=== PATIENT | female | born 1935 | race Caucasian/White ===

== ENCOUNTER → 2018-06-16 08:06 | Outpatient (CLI) | payer MEDICARE, SELFPAY ==
--- NOTE | 2018-06-16 08:25 | RAD_ITS ---
STUDY: X-RAY - ESOPHAGUS (BARIUM SWALLOW) WITH FLUOROSCOPY REASON FOR EXAM: Female, 83 years old. Excessive vomiting in the past 5 weeks. TECHNIQUE: 15 view(s) of the esophagus were obtained following swallowing of barium. FLUOROSCOPY TIME (if supplied): (0:24) minutes/seconds COMPARISON: None. FINDINGS: There is no demonstrated esophageal foreign body. There is no demonstrated stricture or mucosal abnormality. Normal gastroesophageal junction, without a demonstrated hiatal hernia. The patient ingested a 12 mm tablet of barium without any difficulty. There is atherosclerotic calcification of the aortic arch with tortuosity of the descending aorta. Normal visualized pulmonary parenchyma. There are diffuse degenerative changes of the visualized thoracic spine. RAD/Esophagus Only IMPRESSION: Normal plain film x-ray examination (barium swallow) of the esophagus. Electronically Signed: Rishabh Richardson MD at 15:45 EST Tel [phone], Service support ,
--- OUTSIDE RECORDS SUMMARY | 2018-08-09 08:02 | XMS RPT_ITS ---
:1935 Author Organization [facility] Care Team Providers Name Role Phone QAMAR WALLER, DR. STAUFFER Attending Unavailable JAYCOB ARDON MD Primary Care Unavailable Jaycob Ardon Attending Unavailable UNKNOWN, PROVIDER Referring Unavailable Jaycob Ardon Primary Care Unavailable Jaycob Ardon Attending Unavailable UNKNOWN, PROVIDER Referring Unavailable Jaycob Ardon Primary Care Unavailable Jaycob Ardon Attending Unavailable UNKNOWN, PROVIDER Referring Unavailable Jaycob Ardon Primary Care Unavailable Jaycob Ardon Attending Unavailable UNKNOWN, PROVIDER Referring Unavailable Jaycob Ardon Primary Care Unavailable Jaycob Ardon Attending Unavailable UNKNOWN, PROVIDER Referring Unavailable Jaycob Ardon Primary Care Unavailable Jaycob Ardon Attending Unavailable UNKNOWN, PROVIDER Referring Unavailable Jaycob Ardon Primary Care Unavailable Jaycob Ardon Attending Unavailable UNKNOWN, PROVIDER Referring Unavailable Jaycob Ardon Primary Care Unavailable Meera Gan HEALTH PROGRAM ANALYST-C Attending Unavailable Meera Gan HEALTH PROGRAM ANALYST-C Referring Unavailable Jaycob Ardon Primary Care Unavailable Jaycob Ardon Attending Unavailable Jaycob Ardon Referring Unavailable Jaycob Ardon Primary Care Unavailable PROBLEMS PROBLEMS DATE TYPE CONDITION / CODE ATTENDING STATUS SOURCE 02/24/2018 Admitting Encntr screen Reva Jaycob Active [employer] Diagnosis mammogram for System malignant Repository neoplasm of breast / Z12.31(ICD-10) 02/07/2018 Admitting Unspecified Jaycob Ardon Active #[employer] [facility] Diagnosis abdominal pain / System R10.9(ICD-10) Repository 11/08/2017 Admitting Ataxia, Jaycob Ardon Active [employer] Diagnosis unspecified / System R27.0(ICD-10) Repository PROCEDURES PROCEDURES No Procedure Records FoundRESULTS RESULTS ESOPHAGUS ONLY Observed: 06/16/2018 Status: F Source: [place] [place] 8:13 AM [facility] REPOSITORY [facility] Imaging Services [address] [place] [address] Esophagus Only MR#: [id number] Acct: [id number] Name: SHANTHI WILDER V Rep #: [id number] : 1935 F 83 From: Rishabh Richardson MD PCP: Jaycob Ardon Status: REG CLI Study: Esophagus Only Date of Exam: 06/16/18 Exam# [id number] Ordering Dr: Jaycob Ardon STUDY: X-RAY - ESOPHAGUS (BARIUM SWALLOW) WITH FLUOROSCOPY REASON FOR EXAM: Female, 83 years old. Excessive vomiting in the past 5 weeks. TECHNIQUE: 15 view(s) of the esophagus were obtained following swallowing of barium. FLUOROSCOPY TIME (if supplied): (0:24) minutes/seconds COMPARISON: None. FINDINGS: There is no demonstrated esophageal foreign body. There is no demonstrated stricture or mucosal abnormality. Normal gastroesophageal junction, without a demonstrated hiatal hernia. The patient ingested a 12 mm tablet of barium without any difficulty. There is atherosclerotic calcification of the aortic arch with tortuosity of the descending aorta. Normal visualized pulmonary parenchyma. There are diffuse degenerative changes of the visualized thoracic spine. RAD/Esophagus Only IMPRESSION: Normal plain film x-ray examination (barium swallow) of the esophagus. Electronically Signed: Rishabh Richardson MD at 15:45 EST Tel [phone], Service support , CC: Jaycob Ardon Textile Worker: Signed MG BREAST TOMOSYNTHESIS Observed: 02/24/2018 Status: F Source: [facility] SCR BL 12:00 AM SYSTEM REPOSITORY Patient Name: SHANTHI WILDER V Mammography Exam Date/Time 02/24/2018 15:04:05 EDT Exam MG Breast Tomosynthesis BI Scr Ordering Physician DO ARDON PAUL E. Accession Number [id number] CPT4 Codes 52319 (MG Breast Tomosynthesis Scr Bl), 62221 (MG MAMMO 2D SCREENING) Reason For Exam screening Report PATIENT HISTORY: Patient is postmenopausal. Family history of breast cancer under age 50 in mother, breast cancer under age 50 in maternal grandmother. Took hormonal contraceptives for 6 months. Patient has never smoked. Patient's BMI is 26.6. TIME SINCE LAST MAMMOGRAM: Last mammogram was performed 1 year ago. REASON FOR EXAM: screening, asymptomatic. PROCEDURE: MG BREAST TOMOSYNTHESIS BL SCR: FEBRUARY 24, 2018 - 2D/3D Procedure 3D Bilateral CC and MLO view(s) were taken. 2D Bilateral CC and MLO view(s) were taken. Technologist: Josefa Francisco, Technologist Prior study comparison: February 21, 2017, bilateral MG breast tomosynthesis bl scr performed at [facility]. December 06, 2015, right breast screening mammogram performed at [facility]. April 20, 2015, bilateral screening mammogram performed at [facility]. TISSUE DENSITY: The breast tissue is heterogeneously dense, which could obscure underlying abnormalities. 2D digital mammography and tomosynthesis imaging were performed and reviewed with CAD. ASSESSMENT: Category 1 Negative No mammographic evidence of malignancy. RECOMMENDATION: Routine screening mammogram of both breasts in 1 year. Cancer Risk Assessment: This risk assessment is based on patient provided information collected in a risk survey taken at the time of this examination. 5 year breast cancer risk is 4.5% - if greater than or equal to 1.7%, recommend discussion regarding the significance of these results and options for possible risk reduction. Lifetime breast cancer risk: 7.2% - If greater than or equal to 20%, consider annual mammogram and annual screening Breast MRI or follow up in high risk clinic. Is the patient at elevated risk based on the HBOC criteria? Yes (Hereditary Breast and Ovarian Cancer) - If yes, consider genetic counseling and testing with high risk follow up. HNPCC mutation risk (Phan Syndrome): 1% - if greater than or equal to 5%, consider genetic counseling, testing and screening colonoscopy. Final Signed Date and Time: 02/24/2018 4:20 pm Signed by: MD HEATON LAURA US ABDOMEN COMPLETE Observed: 02/07/2018 Status: F Source: [facility] 1:59 PM SYSTEM REPOSITORY Patient Name: SHANTHI WILDER V Ultrasound Exam Date/Time 02/07/2018 10:31:28 EDT Exam US Abdomen Complete Ordering Physician DO ARDON PAUL E. Accession Number [id number] CPT4 Codes 37778 () Reason For Exam . Report CLINICAL INFORMATION: Abdominal pain Sonogram of the abdomen is performed. The liver is normal in echotexture. No hyper or hypo echoic masses are seen. There is no intrahepatic biliary ductal dilatation. The gallbladder is absent. The common bile duct diameter of 6.6 mm is within normal limits. The pancreas is homogenous in echo texture. No obvious pancreatic mass or peripancreatic fluid collection is identified (the pancreas is partially obscured by bowel gas). Cursory examination of the kidneys is performed. The right renal length is 10.3 cm. The left renal length is 10.0cm. There is no hydronephrosis. There is no ascites. The spleen is unremarkable The visualized portions of the aorta and inferior vena cava are within normal limits. IMPRESSION: 1. Small area of subcapsular fluid with calcification posterior lateral spleen-this was present on a CT chest of 02/10/2008 and appears unchanged 2. Otherwise negative exam post remote cholecystectomy Report Dictated on Final Dictating Physician: MD DEWEY WILLIAM Signed Date and Time: 02/07/2018 2:02 pm Signed by: MD DEWEY WILLIAM Transcribed Date and Time: 02/07/2018 2:03 MRI BRAIN W/O Observed: 11/08/2017 Status: F Source: [facility] CONTRAST 3:45 PM SYSTEM REPOSITORY Patient Name: SHANTHI WILDER V MRI Exam Date/Time 11/08/2017 15:28:36 EDT Exam MRI Brain w/o Contrast Ordering Physician DO ARDON PAUL E. Accession Number [id number] CPT4 Codes 51449 () Reason For Exam ataxia Report Indication: Headaches. Ataxia. MRI of the brain without contrast. Multiplanar multisequence imaging of the brain performed Prominence of the ventricular system, sulci and CSF spaces is compatible with mild diffuse cerebral atrophy. No shift of the midline structures. No areas of mass effect. T2-weighted and FLAIR images show periventricular leukomalacia. Scattered T2 hyperintense foci in the periventricular and subcortical white matter are nonspecific and most likely related to small vessel chronic ischemic changes. Diffusion images show no signal changes to indicate a recent ischemic event. Internal auditory canals are symmetric. There is a normal- appearing signal flow void in the major intracranial vascular structures of the [place]. Corpus callosum, optic chiasm, pituitary gland, francisco and craniovertebral junction are within normal limits. The orbits are symmetric. Visualized paranasal sinuses are normally aerated. IMPRESSION: No evidence of an acute intracranial process. Mild nonspecific white matter changes, most likely related to small vessel chronic ischemic changes. Report Dictated on Final Dictating Physician: MD HEATON LAURA Signed Date and Time: 11/08/2017 3:49 pm Signed by: MD HEATON LAURA Transcribed Date and Time: 11/08/2017 3:50 ALLERGIES ALLERGIES No Allergies Records FoundENCOUNTERS ENCOUNTERS ADMIT/DISCHARGE ACCOUNT NUMBER ADMITTING ENCOUNTER LOCATION SOURCE CLASS 07/01/2018 [id number] Ambulatory BBuilding:[facility] Repository 06/16/2018 [id number] Ambulatory [facility] ding:RAD Repository 03/31/2018 [id number] Ambulatory [facility] ding:PT Repository 02/24/2018 [id number] Ambulatory [facility] Repository 02/07/2018 [id number] Ambulatory [facility] Repository 01/29/2018 [id number] Ambulatory [facility] Repository 01/29/2018 [id number] Ambulatory [facility] Repository 01/29/2018 [id number] Ambulatory [facility] Repository 01/23/2018 [id number] Ambulatory [facility] Repository 11/08/2017 [id number] Ambulatory [facility] Repository PAYERS PAYERS ENCOUNTER GUARANTOR PAYER SUBSCRIBER SOURCE 06/16/2018 SHANTHI V [id number] Primary SHANTHI V [place] KANU Insurance:[facility] [place]: [place] [id number] [id number]: (330) Number: Repository [phone] () [id number] Date:[id number] [address] [place] [address]UA: 06/16/2018 Secondary NOT GIVENUNK [place] Insurance:SELF PAY [facility] Number: Effective Repository Date:2018-06-10 03/31/2018 SHANTHI V [id number] Primary SHANTHI V [place] KANU Insurance:[facility] [place]OB: [place] [id number] [id number]: (330) Number: Repository [phone] () [id number] Date:[id number] [address] [place] [address]WQ: 03/31/2018 Secondary NOT GIVENUNK [place] Insurance:SELF PAY [facility] Number: Effective Repository Date:2018-03-18 02/24/2018 Shanthi V Primary Sh[facility] V [facility]: [facility] StaDOB: System licy Number: [id number] Repository [place] Effective Date: [place], [place] [address]Agj: (HP) 02/07/2018 Shanthi V Primary Shanthi V [facility]: Insurance:[facility]CarePo StahlDOB: System licy Number: [id number] Repository [place] Effective Date: [place], [place] [address]Beq: (HP) 01/29/2018 Shanthi V Primary Shanthi V [facility]: Insurance:[facility]CarePo StahlDOB: System licy Number: [id number] Repository [place] Effective Date: [place], [place] [address]Eda: (HP) 01/29/2018 Shanthi V Primary Shanthi V [facility]: Insurance:[facility]CarePo StahlDOB: System licy Number: [id number] Repository [place] Effective Date: [place], [place] [address]Sjr: (HP) 01/29/2018 Shanthi V Primary Shanthi V [facility]: Insurance:SummaCarePo StahlDOB: System licy Number: [id number] Repository [place] Effective Date: [place], [place] [address]Jzq: (HP) 01/23/2018 Shanthi V Primary Shanthi V [facility]: Insurance:SummaCarePo StahlDOB: System licy Number: [id number] Repository [place] Effective Date: [place], [place] [address]Sbq: (HP) 11/08/2017 Shanthi V Primary Shanthi V [facility]ahl[facility]: Insurance:SummaCarePo StahlDOB: System licy Number: [id number] Repository [place] Effective Date: [place], [place] [address]Fai: (HP)
== END ==
PROVIDERS: Family Provider Family Medicine; PCP Family Medicine; Referring Provider Family Medicine; Visit Provider Family Medicine
DX: R63.4 Abnormal weight loss (principal); R13.10 Dysphagia, unspecified
CPT/HCPCS: 74220

== ENCOUNTER 2018-12-25 14:36 | Inpatient (IN) | payer MEDICARE, MEDICAID, SELFPAY ==
[2018-12-25] VITALS (9 sets, daily range): BP systolic 119–149; BP diastolic 59–70; PULSE 59–67; RESP 12–18; TEMP 35.4–37; O2SAT 95–99; BMI 49.1; BMI 25.6
--- NOTE | 2018-12-25 15:03 | EKG12_ITS ---
Test Reason : NEURO S/SX Blood Pressure : / mmHG Vent. Rate : 062 BPM Atrial Rate : 062 BPM P-R Int : 192 ms QRS Dur : 082 ms QT Int : 470 ms P-R-T Axes : 041 048 036 degrees QTc Int : 477 ms Normal sinus rhythm Normal ECG Confirmed by NORRIS AYALA ([id number]), copy editor REMBERTO FRIED ([id number]) on 12/29/2018 1:16:07 PM Referred By: TONO Confirmed By:KARY AYALA
--- NOTE | 2018-12-25 15:03 | CT_ITS ---
STUDY: CT BRAIN WITHOUT CONTRAST REASON FOR EXAM: Female, 83 years old. Left-sided facial droop. RADIATION DOSAGE (If Supplied By Facility): CTDIvol = ( 19.22 ) mGy, DLP = ( 2305.44 ) mGycm TECHNIQUE: Transaxial CT imaging of the brain was performed without administration of intravenous contrast material. Individualized dose optimization techniques were used for this CT. COMPARISON: No relevant priors. FINDINGS: Normal soft tissue structures. Normal calvarium. Normal size ventricles and extra-axial spaces for the patient's age. There are areas of decreased attenuation within the white matter tracts of the supratentorial brain, consistent with microvascular disease changes. Normal basal ganglia and thalami. Normal brainstem. Normal cerebellum. There is no intracranial hemorrhage. There are no findings of an acute ischemic infarction. Normal visualized paranasal sinuses. CT/Brain/Head without Contrast IMPRESSION: Small vessel ischemia. Electronically Signed: Kristen Luke MD at 16:43 EDT Tel , Service support ,
--- NOTE | 2018-12-25 15:04 | CT_ITS ---
STUDY: CT CHEST WITH CONTRAST REASON FOR EXAM: Female, 83 years old. Left facial droop. Abdominal pain. RADIATION DOSAGE (If Supplied By Facility): CTDIvol = ( 19.22 ) mGy, DLP = ( 2305.44 ) mGycm TECHNIQUE: Transaxial imaging was performed following intravenous administration of 100CC IV Isovue 300. Multiplanar coronal and sagittal images were reformatted. Individualized dose optimization techniques were used for this CT. COMPARISON: None. FINDINGS: There are bilateral pleural effusions associated with dependent consolidation within the lower lobes. There is biapical scarring. There are calcifications of the coronary arteries. Normal mediastinum. Normal hilar regions. Normal enhanced pulmonary arteries. There is atherosclerotic calcification of the aortic arch. There are multi-level degenerative changes of the thoracic spine. Please note there is a separate dedicated CT report of the abdomen and pelvis. CT/Chest WITH Contrast IMPRESSION: Bilateral pleural effusions associated with dependent consolidation within the lower lobes. Atherosclerosis. Electronically Signed: Kristen Luke MD at 16:47 EDT Tel , Service support ,
--- NOTE | 2018-12-25 15:04 | CT_ITS ---
STUDY: CT ABDOMEN AND PELVIS WITH CONTRAST REASON FOR EXAM: Female, 83 years old. Left facial droop. Abdominal pain. RADIATION DOSAGE (If Supplied By Facility): CTDIvol = ( 19.22 ) mGy, DLP = ( 2305.44 ) mGycm TECHNIQUE: Transaxial images were obtained from the dome of the diaphragm to the symphysis pubis without oral contrast. 100CC IV Isovue 300 was administered. Sagittal and coronal images were reconstructed. Individualized dose optimization techniques were used for this CT. COMPARISON: None. FINDINGS: There are bilateral pleural effusions associated with dependent consolidation within the lower lobes. There are coronary artery calcifications present. There is a diffuse contour abnormality of the liver consistent with cirrhotic changes. There are surgical clips in the gallbladder fossa consistent with a prior cholecystectomy. There are capsular calcifications of the spleen. There is a low-attenuation subcapsular splenic fluid focus. Normal pancreas. There is extensive ascites. Normal bilateral adrenal glands. There are bilateral renal cysts. There is a small hiatal hernia. Normal small intestine. There are a few scattered diverticula within the colon. There is non-visualization of the appendix. There is diffuse atherosclerotic calcification of the abdominal aorta, without a demonstrated aneurysm. Normal inferior vena cava. Normal retroperitoneum. There appears to be bladder prolapse. There is subcutaneous edema. There are diffuse degenerative changes of the visualized lumbar spine. There is a grade 1 anterior spondylolisthesis of L3 on L4. CT/Abdomen/Pelvis W IV Cont ONLY IMPRESSION: Extensive ascites. Cirrhotic liver. Bilateral pleural effusions associated with dependent consolidation within the lower lobes. Atherosclerosis. Electronically Signed: Kristen Luke MD at 16:41 EDT Tel , Service support ,
--- NOTE | 2018-12-25 15:05 | CT_ITS ---
STUDY: CT CERVICAL SPINE WITHOUT CONTRAST REASON FOR EXAM: Female, 83 years old. Left-sided facial droop. RADIATION DOSAGE (If Supplied By Facility): CTDIvol = ( 19.22 ) mGy, DLP = ( 2305.44 ) mGycm TECHNIQUE: High resolution transaxial imaging was performed without contrast material. Sagittal and coronal images were reconstructed. Individualized dose optimization techniques were used for this CT. COMPARISON: None FINDINGS: Normal craniovertebral junction. There are degenerative changes of the anterior atlantoaxial articulation. Normal odontoid process. body heights are preserved. There is multilevel facet hypertrophy. C2-3: Normal endplates. Normal disc height and morphology. Normal central canal and intervertebral neuroforamina. C3-4: There is a retrolisthesis of C3 on C4 by 1.7 mm. There is a posterior disc osteophyte and facet hypertrophy associated with stenosis of the spinal canal and narrowing of the right neural foramina. C4-5: There is endplate spondylosis. Normal central canal and intervertebral neuroforamina. C5-6: There is endplate spondylosis. Normal central canal and intervertebral neuroforamina. C6-7: There is a posterior disc osteophyte. Normal central canal and intervertebral neuroforamina. C7-T1: Normal endplates. Normal disc height and morphology. Normal central canal and intervertebral neuroforamina. Normal visualized soft tissue structures. CT/Spine Cervical without Contras IMPRESSION: Multilevel degenerative changes, as described above. Electronically Signed: Kristen Luke MD at 16:53 EDT Tel , Service support ,
--- NOTE | 2018-12-25 15:09 | ED.VISSUMM ---
- ER Visit Summary Date of Service: 12/25/18 Chief Complaint: Confusion History of Present Illness: The patient is a 83 F presenting with confusion, fall, left facial droop. Per family they noted left facial droop on Saturday. They state that this has been intermittent. She has been more confused over the past several days. She lives with family. They have a home health aide that stays with her from 11 AM to 3 PM while they are at work. Yesterday when the home health aide arrived at 11 AM she was on the floor. She does not recall how long she laid on the floor. Per family her gait has been more unsteady than usual. She seems to be falling to one side. She is not on anticoagulants. She complains of right-sided abdominal pain since the fall. She has a history of Parkinson's, GERD, hypothyroidism. Physical Examination: Vitals are stable. Patient is afebrile. Alert no acute distress. HEENT exam is unremarkable. Neck is nontender Lungs are clear and equal bilaterally. Heart is regular rate and rhythm. Abdomen is soft mild right upper quadrant tenderness with no rebound or guarding Extremities ecchymosis left posterior shoulder Skin is warm and dry. NIH 1 for LOC questions. Remainder of exam is unremarkable. Emergency Department Course and Treatment: EKG is sinus rate of 62 with no acute ischemic changes. CBC is unremarkable. Chemistries show sodium 132, BUN 29, creatinine 1.29. Alk phos 146, AST 67. Troponin 0.029. CK 103. Urinalysis is unremarkable. CT head shows small vessel ischemia. CT cervical spine shows multilevel degenerative changes. CT chest shows bilateral pleural effusions associated with dependent consolidation within the lower lobes. CT abdomen/pelvis shows extensive ascites. Cirrhotic liver. Left shoulder x-ray shows degenerative changes of the acromioclavicular joint. Discussed with family. They are concerned with her unsteady gait and falling to one side. Will discuss with the hospitalist for admission. Disposition: Admission Impression: Unsteady gait, fall, reported facial droop This note was generated with [employer] dictation software. It may contain incorrect words, spelling, and punctuation that were not noted in review of the chart prior to signing ED Disposition - Plan for ED Patient: Referrals: Jaycob Ardon [Primary Care Provider] -
[2018-12-25 15:13] LABS: Absolute Lymphocyte Count 1.43 X10^3/ul (0.83-4.51); Absolute Neutrophil Count 3.4 X10^3/uL (2.0-7.7); Basophil# 0.02 X10^3/uL; Basophil% 0.4 % (0-1); Eosinophil# 0.11 X10^3/uL; Hematocrit 36.3 % (37-47); Hemoglobin 12.5 g/dl (12.0-15.0); Lymphocyte # 1.43 X10^3/ul (4.0); Lymphocyte % 26.2 % (19-41); Mean Corp Hgb Conc 34.4 g/gl (32-36); Mean Corpuscular Hgb 33.4 pg (27.0-32.0); Mean Corpuscular Volume 97.1 fL (81-99); Mean Platelet Vol. 9.9 fl (6.2-12.0); Monocyte# 0.49 X10^3/uL; Neutrophil % 62.2 % (47-70); Platelet Count 83 K/mm3 (150-450); RBC Distribution Width CV 13.7 % (11.6-14.6); RBC Distribution Width SD 48.6 fl (35.1-43.9); Red Blood Count 3.74 M/mm3 (4.2-5.4); White Blood Count 5.5 K/mm3 (4.4-11.0)
[2018-12-25 15:14] LABS: POSITIVE COUNT NO; POSITIVE DIFFERENTIAL NO; POSITIVE MORPHOLOGY NO
[2018-12-25 15:31] LABS: Bedside Glucose 99 mg/dL (70-110)
[2018-12-25 15:51] LABS: ALB/GLOB Ratio 0.5 RATIO (0.9-2.4); AST(SGOT) 67 U/L (15-37); Alanine Aminotransfer ALT/SGPT 11 U/L (13-56); Albumin, Serum 2.3 g/dL (3.2-5.0); Alkaline Phosphatase 146 U/L (45-117); Anion Gap 2 (5-15); BUN 29 mg/dL (7-18); BUN/Creat Ratio 22.5 RATIO (10-20); CPK Total, Creatine Kinase 103 U/L (26-192); Calcium,Total 8.9 mg/dL (8.5-10.1); Chloride 105 mmol/L (98-107); Creatinine, Serum 1.29 mg/dL (0.55-1.02); EST Glomerular Filtration Rate 42 mL/min (>60); Est Glom Filt Rate - Afr Amer 51 mL/min (>60); Estimated Creatinine Clearance 30.78 ml/min; Globulin 4.7 g/dL (2.2-4.2); Glucose 111 mg/dL (74-106); Potassium 4.7 mmol/L (3.5-5.1); Sodium Level 132 mmol/L (136-145)
--- NOTE | 2018-12-25 16:20 | RAD_ITS ---
STUDY: X-RAY - LEFT SHOULDER REASON FOR EXAM: Female, 83 years old. Pain TECHNIQUE: 5 view(s) of the shoulder. COMPARISON: None. FINDINGS: Normal glenohumeral articulation. There are degenerative changes of the acromioclavicular joint. Normal acromion. There is demineralization of the humerus and visualized osseous structures. The soft tissue structures are unremarkable. Normal visualized pulmonary apex. RAD/Shoulder min 2 Views IMPRESSION: Degenerative changes of the acromioclavicular joint. Electronically Signed: Kristen Luke MD at 16:54 EDT Tel , Service support ,
[2018-12-25 16:50] LABS: Bacteria 0 SEEN /hpf (None Seen); Mucous, Urine 0 SEEN /hpf (<or=2+)
[2018-12-25 17:26] LABS: Color, Urine Yellow (Yellow); Glucose, Dipstick Normal (Normal); Ketone-Dipstick 5 mg/dl (Negative); Leukocyte Esterase-Dipstick 25 /ul (Negative); Nitrite-Dipstick Negative (Negative); Occult Blood-Urine 10 /ul (Negative); Protein-Dipstick 15 mg/dl (Negative); Urine Bilirubin Dipstick Negative (Negative); Urine Clarity Sl. Cloudy (Clear); Urine Urobilinogen 8 mg/dl (Normal); Urine pH 6.5 (5.0 - 8.0)
[2018-12-25 18:04] LABS: Amorphous Sediment 1+; Hyaline Cast 0-5 SEEN /lpf (0-5); Red Blood Cells-Urine 0-5 SEEN /hpf (0-5); Squamous Epithelial Cells - UA 0-5 SEEN /hpf (5-10); White Blood Cells 0-5 SEEN /hpf (0-5)
--- NOTE | 2018-12-25 19:52 | HP.PCM_ITS ---
Problem List (1) Parkinson disease Status: Chronic (2) Hypothyroidism Status: Chronic Qualifiers: Hypothyroidism type: unspecified Qualified Code(s): E03.9 - Hypothyroidism, unspecified (3) Altered mental status Status: Acute Qualifiers: Altered mental status type: unspecified Qualified Code(s): R41.82 - Altered mental status, unspecified (4) Dementia Status: Chronic Qualifiers: Dementia type: unspecified type Dementia behavioral disturbance: without behavioral disturbance Qualified Code(s): F03.90 - Unspecified dementia without behavioral disturbance History of Present Illness Date of Admission: 12/25/18 Chief Complaint: Altered mental status, fall, left facial droop - 1 day The patient is a 83 year old F with past medical history of Parkinson's disease with dementia, hypothyroidism, osteoarthritis who was brought to the emergency department with altered mental status. Patient lives alone but has her children checking on her [id number] as well as an aide. The aide works 11am-3pm when they are at work. The aide noticed that she appeared more confused today, she was found to be on the floor. Patient has been falling and her gait is said to be unsteady and seems to be falling more to one side. Denied any fever or chills or diarrhea or nausea or vomiting. Patient intermittently appears confused for the children but this is persistent and worse. They had also noticed some left facial droop. No tingling no numbness. She complains of pain in her neck only. Denies any abdominal discomfort fever or chills In the ED, her vitals showed temperature of 98.4F, heart rate 60, blood pressure 145/69, respiratory rate was 14, SPO2 is 98% on room air. Admitting blood work showed RBC count of 5.5, hemoglobin 12.5, platelet count of 83. Her BMP shows sodium 132, potassium 4.7, chloride 105, bicarbonate 25, BUN 29, creatinine 1.29, no previous Cr to compare. Her LFTs showed AST of 6 7, ALT 11, ALP 146, total bilirubin of 1, albumin 2.3. Urinalysis is unremarkable. CT scan of the brain shows small vessel ischemia. Her abdomen and pelvis showed bilateral pleural effusions, cirrhosis of the liver, ascites. Chest CT showed bilateral pleural effusion, dependent consolidation within the lower lobes. Cervical spine CT showed multilevel degenerative disease. X-ray of the shoulder showed degenerative changes. Past Medical History Past Medical History (Chronic Problems): Chronic Problems Parkinson disease (Chronic) Hypothyroidism (Chronic) Dementia (Chronic) Allergies Sulfa (Sulfonamide Antibiotics) Allergy (Verified 12/25/18 14:39) Unknown Home Medications: Ambulatory Orders Medication Instructions Recorded Aspirin 81 mg PO DAILY 12/25/18 Carbidopa/Levodopa [Carbidopa-Levo 1 each PO TID 12/25/18 10-100 mg Odt] Levothyroxine [Synthroid] 125 mcg PO DAILY 12/25/18 Loratadine [Claritin] 10 mg PO DAILY 12/25/18 Omeprazole 20 mg PO DAILY 12/25/18 Rasagiline Mesylate [Azilect] 0.5 mg PO DAILY 12/25/18 traMADol [Ultram (G)] 50 mg PO BID PRN PRN 12/25/18 Surgical History: cataract, cholecystectomy, total knee arthroplasty - bilateral Psychiatric History: No pertinent psych hx DEPUTY CHIEF COUNSEL History: No pertinent DEPUTY CHIEF COUNSEL history Lives: Alone Smoking Status: Never smoker Tobacco Use: Non-smoker Alcohol: None Drugs: None - *Family History Maternal History Items: No pertinent history Paternal History Items: Cancer - melanoma Review of Systems Constitutional: Reports: Anorexia, Weakness. Denies: Fever, Malaise, Weight Change, Fatigue Eyes: Denies: Blurred vision, Cataracts, Pain, Redness HEENT: Denies: Difficulty Hearing, Difficulty Swallowing, Head Aches, Hearing Changes, Sinus Congestion, Sinus Drainage, Sore Throat Cardiovascular: Denies: Chest Pain, Claudication, Orthopnea, Palpitations Respiratory: Denies: Cough, Hemoptysis, Shortness of breath at rest, Shortness of breath upon exertion, Sputum production Gastrointestinal: Denies: Abdominal Pain, Nausea, Vomiting Genitourinary: Denies: Dysuria, Frequency, Incontinence, Nocturia Musculoskeletal: Denies: Joint Pain, Joint stiffness, Joint swelling, Joint Tenderness Skin: Denies: Rash, Wounds Neurological: Reports: Confusion. Denies: Focal weakness, Numbness, Tingling Psychiatric: Denies: Anxiety, Depression, Homicidal Ideations, Suicidal Ideations Hematologic/ Lymphatic: Denies: Easy Bruising, Easy Bleeding VTE Information - Inpt Only VTE Present on Admission: No VTE Pharm Prophylaxis ordered?: Yes Patient Problems: Active and Suspected Problems Altered mental status (Acute) - Physical Exam General: Alert, Cooperative, No apparent distress, - - oriented x 2( person, partially to time - knew season) HEENT: Atraumatic, PERRLA, EOMI, Normocephalic Oral: Moist Mucosa Neck: Supple Lungs: Clear to auscultation, Normal air movement Cardiovascular: Regular rate, Regular Rhythm, Normal S1, Normal S2, No murmurs Abdomen: Bowel Sounds Present, Soft, Non Tender, No Hepato-splenomegaly, Distended, - - Ascites++ Extremities: Edema - Bilateral leg edema +2 Skin: No rashes, No breakdown Musculoskeletal: No Tenderness to Palpation of Joints or Extremities Lymphatic: No Cervical, Supraclavicular, or Inguinal Adenopathy Neurological: Cranial nerves II-XII grossly intact, Neuro grossly intact - global weakness in all extremities, Facial Droop - left Psych/Mental Status: Normal Affect, Appropriate Vital Signs Temp Pulse Resp BP Pulse Ox 98.4 F 60 14 145/69 H 98 12/25/18 19:03 12/25/18 19:03 12/25/18 19:03 12/25/18 19:03 12/25/18 19:03 Oxygen Delivery Method Room Air Weight: 69.7 kg Body Mass Index (BMI) 25.6 Finger Stick Blood Glucose 99 Laboratory Tests Past 24 Hrs 12/25/18 12/25/18 12/25/18 15:03 15:03 15:03 WBC 5.5 RBC 3.74 L Hgb 12.5 Hct 36.3 L MCV 97.1 MCH 33.4 H MCHC 34.4 RDW 13.7 RDW Differential 48.6 H Plt Count 83 L MPV 9.9 Immature Gran % (Auto) 0.200 Neut % (Auto) 62.2 Lymph % (Auto) 26.2 [place] % (Auto) 9.0 Eos % (Auto) 2.0 Baso % (Auto) 0.4 Absolute Neuts (auto) 3.4 Absolute Lymphs (auto) 1.43 Total Counted Not Reportable Sodium 132 L Potassium 4.7 Chloride 105 Carbon Dioxide 25.0 Anion Gap 2 L BUN 29 H Creatinine 1.29 H Estim Creat Clear Calc 30.78 Est GFR (MDRD) Af Amer 51 L Est GFR (MDRD) Non-Af 42 L BUN/Creatinine Ratio 22.5 H Glucose 111 H Calcium 8.9 Total Bilirubin 1.00 AST 67 H ALT 11 L Alkaline Phosphatase 146 H Total Creatine Kinase 103 Troponin I 0.029 Total Protein 7.0 Albumin 2.3 L Globulin 4.7 H Albumin/Globulin Ratio 0.5 L Urine Color Urine Clarity Urine pH Ur Specific [place] Urine Protein Urine Glucose (UA) Urine Ketones Urine Occult Blood Urine Nitrite Urine Bilirubin Urine Urobilinogen Ur Leukocyte Esterase Urine RBC Urine WBC Ur Squamous Epith Cells Amorphous Sediment Urine Bacteria Hyaline Casts Urine Mucus 12/25/18 16:43 WBC RBC Hgb Hct MCV MCH MCHC RDW RDW Differential Plt Count MPV Immature Gran % (Auto) Neut % (Auto) Lymph % (Auto) [place] % (Auto) Eos % (Auto) Baso % (Auto) Absolute Neuts (auto) Absolute Lymphs (auto) Total Counted Sodium Potassium Chloride Carbon Dioxide Anion Gap BUN Creatinine Estim Creat Clear Calc Est GFR (MDRD) Af Amer Est GFR (MDRD) Non-Af BUN/Creatinine Ratio Glucose Calcium Total Bilirubin AST ALT Alkaline Phosphatase Total Creatine Kinase Troponin I Total Protein Albumin Globulin Albumin/Globulin Ratio Urine Color Yellow Urine Clarity Sl. Cloudy Urine pH 6.5 Ur Specific [place] 1.010 Urine Protein 15 H Urine Glucose (UA) Normal Urine Ketones 5 H Urine Occult Blood 10 H Urine Nitrite Negative Urine Bilirubin Negative Urine Urobilinogen 8 H Ur Leukocyte Esterase 25 H Urine RBC 0-5 SEEN Urine WBC 0-5 SEEN Ur Squamous Epith Cells 0-5 SEEN Amorphous Sediment 1+ Urine Bacteria 0 SEEN Hyaline Casts 0-5 SEEN Urine Mucus 0 SEEN POC Glucose 12/25/18 15:19 POC Glucose 99 Assessment/Plan All Active Problems Altered mental status (Acute) 83 year old F with past medical history of Parkinson's disease with dementia, hypothyroidism, osteoarthritis who was brought to the emergency department with altered mental status. 1. Altered mental status, likely multifactorial, likely related to progressive worsening of her Parkinson's disease versus CVA vs likely hyperammonemia from cirrhosis of the liver. Not on lactulose or lasix or aldactone. Initial CT of the head showed small ischemic vessel changes. Stable vitals Plan: Admit to PCU, monitor on telemetry, aspirin, statin, 2D echo, MRI of the brain, carotid ultrasound on account of elevated creatinine,\ Check ammonia level 2. Elevated creatinine, unclear if RADHA or CKD, will repeat blood work in a.m. 3. Cirrhosis of the liver with elevated LFTs and ascites, recently taken off Lasix and possibly Aldactone on account of hypotension Will give Lasix 40mg x1, then 20mg lasix po daily, labs in am 4. Hypothyroidism, will check TSH, continue on hypothyroidism 5. Parkinson's disease with dementia, continue on home Parkinson's regimen, PT/OT to evaluate and treat 6. DVT PPx- SCDs Code Visit Inpatient E&M: 43027 Init Hosp L3
--- NOTE | 2018-12-25 19:56 | ECHOD_ITS ---
Reason For Study: TIA/CVA Procedure This was a 2D Doppler, Color Flow transthoracic echocardiogram. Exam performed portable in patient room. Left Ventricle Normal size and thickness. Left ventricular systolic function is hyperdynamic. The estimated ejection fraction is 75 %. Normal diastology for age. No regional wall motion abnormalities noted. Right Ventricle Normal RV size. Normal systolic function. Atria Normal left atrium. Normal right atrium. No doppler evidence for ASD. Bubble contrast study negative for right to left interatrial shunt. Mitral Valve There is no mitral valve stenosis. No mitral valve insufficiency. Tricuspid Valve There is no tricuspid stenosis. Trivial tricuspid valve insufficiency. Pulmonary artery systolic pressure is 30-35 mmHg. Aortic Valve Mild diffuse aortic valve thickening. Mild aortic stenosis. Mild (1+) aortic valve insufficiency. Pulmonic Valve There is no pulmonic valvular stenosis. No pulmonic valve insufficiency. Great Vessels Normal aortic root. Pericardium/Pleural No pericardial effusion. Medication Performed a rapid injection of agitated mix of 9 cc saline and 1cc air to assess for atrial septal defect. MMode/2D Measurements & Calculations LVIDd: 3.1 cm IVSd: 0.88 cm LVOT diam: 2.0 cm LVIDs: 2.0 cm LVPWd: 0.90 cm RVDd: 3.3 cm FS: 35.5 % LVOT area: 3.0 cm2 Ao root diam: 3.1 cm LAV(MOD-bp): 33.2 ml LVAd ap4: 27.1 cm2 LAV(MOD-bp) Indexed: 19.1 ml/m2 EDV(MOD-sp4): 79.7 ml LAV(MOD-sp2): 33.3 ml EDV(sp4-el): 82.9 ml LAV(MOD-sp4): 32.8 ml LVAs ap4: 13.4 cm2 ESV(MOD-sp4): 24.3 ml ESV(sp4-el): 25.4 ml EF(MOD-sp4): 69.5 % EF(sp4-el): 69.3 % SV(MOD-sp4): 55.4 ml SV(sp4-el): 57.5 ml LA A4 area: 13.9 cm2 LA dimension(2D): 2.7 cm RA A4 area: 12.9 cm2 Time Measurements MV dec time: 0.27 sec Doppler Measurements & Calculations MV E max charlie: 73.8 cm/sec Lat Peak E' Charlie: 12.6 cm/sec Med Peak E' Charlie: 8.4 cm/sec MV A max charlie: 95.9 cm/sec E/E' lat: 5.9 E/E' med: 8.8 MV E/A: 0.77 Ao V2 max: 252.1 cm/sec AI max charlie: 359.9 cm/sec LV V1 max: 133.9 cm/sec Ao max P.4 mmHg AI max P.8 mmHg LV V1 max P.2 mmHg Ao V2 mean: 177.0 cm/sec AI dec slope: 287.0 cm/sec2 LV V1 mean P.7 mmHg Ao mean P.1 mmHg AI P1/2t: 367.3 msec LV V1 mean: 91.2 cm/sec Ao V2 VTI: 55.1 cm LV V1 VTI: 29.6 cm MANISH(I,D): 1.6 cm2 MANISH(V,D): 1.6 cm2 SV(LVOT): 89.8 ml PA V2 max: 142.9 cm/sec TR max charlie: 268.9 cm/sec TR max P.9 mmHg Interpretation Summary Left ventricular systolic function is hyperdynamic. The estimated ejection fraction is 75 %. Normal diastology for age. Mild aortic stenosis. Mild (1+) aortic valve insufficiency. Bubble contrast study negative for right to left interatrial shunt. No doppler evidence for ASD. Ordering Physician: Natty Morton Referring Physician: ROSCOE URIARTE Performed By: Nina Portillo RDCS
--- NOTE | 2018-12-25 21:11 | CDU_ITS ---
Reason For Study: CVA Rt. Velocities/BP Lt. Velocities/BP Prox CCA 83.9/13.4 cm/sec. Prox CCA 145.5/16 cm/sec. Mid CCA 72.1/14.7 cm/sec. Mid CCA 110.1/15.2 cm/sec. Dist CCA 65.6/14.7 cm/sec. Dist CCA 104.7/15.2 cm/sec. Prox ICA 48.6/8.2 cm/sec. Prox ICA 79/18.8 cm/sec. Mid ICA 66.4/16.3 cm/sec. Mid ICA 101.1/22.5 cm/sec. Dist ICA 68.3/17.3 cm/sec. Dist ICA 101.1/23.7 cm/sec. Rt. ICA/CCA = 0.9. Lt. ICA/CCA = 0.9. Prox ECA 77.3/12.1 cm/sec. Prox ECA 106.5/24.3 cm/sec. Rt. Vert. 40/10.7 cm/sec. Lt. Vert. 50.7/13.9 cm/sec. Right Extracranial There is intimal thickening but no significant atherosclerotic plaque noted in the right common carotid artery. There is homogeneous, smooth atherosclerotic plaque noted in the right internal carotid artery. There is no significant atherosclerotic plaque noted in the right external carotid artery. Antegrade flow is noted in the right vertebral artery. Left Extracranial There is homogeneous, smooth atherosclerotic plaque noted in the left common carotid artery. There is homogeneous, smooth atherosclerotic plaque noted in the left internal carotid artery. There is intimal thickening but no significant atherosclerotic plaque noted in the left external carotid artery. Antegrade flow is noted in the left vertebral artery. Procedure Carotid Duplex [id number]. Exam performed portable in patient room. Interpretation Summary Mild (<50%) stenosis right extracranial internal carotid. Mild (<50%) stenosis left extracranial internal carotid. Flow within the vertebral arteries is antegrade bilaterally. Ordering Physician: Natty Morton Referring Physician: Jaycob Ardon Performed By: Jyoti Powell RVT
[2018-12-25] MEDS: Famotidine 20 MG Tablet PO (21:26)
[2018-12-25 22:24] LABS: Thyroid Stim Hormone (TSH) 0.31 uIU/mL (0.358-3.74)
[2018-12-25] MEDS: Furosemide 40 MG/4 ML Vial IV (22:49)
[2018-12-25] MEDS: Lactulose 20 GM/30 ML UDC PO (22:49)
[2018-12-26] VITALS (14 sets, daily range): BP systolic 102–162; BP diastolic 51–72; PULSE 63–80; RESP 16–18; TEMP 36.2–36.9; O2SAT 95–98; BMI 25.6
[2018-12-26] MEDS: Carbidopa/Levodopa 10/100 Tablet PO ×3 (06:18→16:21)
[2018-12-26] MEDS: Levothyroxine 125 MCG Tablet PO (06:18)
[2018-12-26 06:33] LABS: Absolute Neutrophil Count 2.4 X10^3/uL (2.0-7.7); Basophil# 0.03 X10^3/uL; Basophil% 0.7 % (0-1); Eosinophil# 0.09 X10^3/uL; Eosinophils% 2.2 % (0-5); Hematocrit 36.7 % (37-47); Hemoglobin 12.6 g/dl (12.0-15.0); Lymphocyte % 26.6 % (19-41); Mean Corp Hgb Conc 34.3 g/gl (32-36); Mean Corpuscular Hgb 33.2 pg (27.0-32.0); Mean Corpuscular Volume 96.6 fL (81-99); Monocyte# 0.48 X10^3/uL; Monocyte% 11.6 % (0-10); Neutrophil # 2.41 X10^3/uL (2.7-7.7); Neutrophil % 58.4 % (47-70); Platelet Count 73 K/mm3 (150-450); RBC Distribution Width CV 13.3 % (11.6-14.6); RBC Distribution Width SD 45.1 fl (35.1-43.9); White Blood Count 4.1 K/mm3 (4.4-11.0)
[2018-12-26 06:54] LABS: POSITIVE COUNT NO; POSITIVE DIFFERENTIAL NO; POSITIVE MORPHOLOGY NO
[2018-12-26 07:03] LABS: ALB/GLOB Ratio 0.5 RATIO (0.9-2.4); AST(SGOT) 47 U/L (15-37); Alanine Aminotransfer ALT/SGPT 20 U/L (13-56); Albumin, Serum 2.2 g/dL (3.2-5.0); Alkaline Phosphatase 139 U/L (45-117); Anion Gap 8 (5-15); BUN 26 mg/dL (7-18); BUN/Creat Ratio 24.1 RATIO (10-20); Chloride 103 mmol/L (98-107); Cholesterol 124 mg/dL (200); Creatinine, Serum 1.08 mg/dL (0.55-1.02); EST Glomerular Filtration Rate 52 mL/min (>60); Est Glom Filt Rate - Afr Amer 63 mL/min (>60); Estimated Creatinine Clearance 35.28 ml/min; Globulin 4.3 g/dL (2.2-4.2); Glucose 79 mg/dL (74-106); High Density Lipoprotein 56 mg/dL; Protein, Total 6.5 g/dL (6.4-8.2); Sodium Level 136 mmol/L (136-145); Triglycerides 53 mg/dL; Very Low Density Lipoprotein 11 mg/dL (5-40)
--- NOTE | 2018-12-26 07:56 | PCM.PROGNOTE ---
Patient Problems: Active and Suspected Problems Altered mental status (Acute) Subjective: Chief complaint: Follow-up after admission for encephalopathy, questionable strokelike symptoms and dehydration. Patient seen and examined. No acute events overnight. Patient is alert, knows her full name, date of , oriented to time and person. She denied chest pain or shortness of breath. Denied abdominal pain, nausea vomiting. Denies cough or sputum production. Denied blurred vision or slurred speech. Denies focal arm or leg weakness. Her vital signs are stable. - Physical Exam General: Alert, Oriented x3, Cooperative, No apparent distress HEENT: Atraumatic, PERRLA, EOMI, Normocephalic Oral: Moist Mucosa, No Gingival or Mucosal Lesions/ Ulcerations Neck: Supple, No JVD, Trachea Midline, Thyroid Normal Size and Texture Lungs: Clear to auscultation, No rhonchi, No wheeze, No rales, Diminished Cardiovascular: Regular rate, Regular Rhythm, Normal S1, Normal S2, PMI Normal Abdomen: Bowel Sounds Present, Soft, Non Tender, Non-Distended, No Hepato-splenomegaly Extremities: No clubbing, No cyanosis, Edema Skin: No rashes, No breakdown Lymphatic: No Cervical, Supraclavicular, or Inguinal Adenopathy Neurological: Motor Exam 5/5 strength throughout, Facial Droop - Cranial nerves are intact except minimal left-sided facial droop. Psych/Mental Status: Normal Affect, Appropriate Vital Signs Temp Pulse Resp BP Pulse Ox 98.2 F 80 18 107/65 98 12/26/18 03:53 12/26/18 07:09 12/26/18 03:53 12/26/18 03:53 12/26/18 03:53 Oxygen Delivery Method Room Air Weight: 152 lb 5.431 oz Body Mass Index (BMI) 25.6 Finger Stick Blood Glucose 99 Intake and Output for Last 24 Hours 12/24/18 12/25/18 12/26/18 23:59 23:59 23:59 Intake Total 480 / 480 480 / 480 Output Total 1050 / 1050 Balance 480 / 480 -570 / -570 Laboratory Tests Past 24 Hrs 12/25/18 12/25/18 12/25/18 15:03 15:03 15:03 WBC 5.5 RBC 3.74 L Hgb 12.5 Hct 36.3 L MCV 97.1 MCH 33.4 H MCHC 34.4 RDW 13.7 RDW Differential 48.6 H Plt Count 83 L MPV 9.9 Immature Gran % (Auto) 0.200 Neut % (Auto) 62.2 Lymph % (Auto) 26.2 [place] % (Auto) 9.0 Eos % (Auto) 2.0 Baso % (Auto) 0.4 Absolute Neuts (auto) 3.4 Absolute Lymphs (auto) 1.43 Total Counted Not Reportable Sodium 132 L Potassium 4.7 Chloride 105 Carbon Dioxide 25.0 Anion Gap 2 L BUN 29 H Creatinine 1.29 H Estim Creat Clear Calc 30.78 Est GFR (MDRD) Af Amer 51 L Est GFR (MDRD) Non-Af 42 L BUN/Creatinine Ratio 22.5 H Glucose 111 H Calcium 8.9 Total Bilirubin 1.00 AST 67 H ALT 11 L Alkaline Phosphatase 146 H Ammonia Total Creatine Kinase 103 Troponin I 0.029 Total Protein 7.0 Albumin 2.3 L Globulin 4.7 H Albumin/Globulin Ratio 0.5 L Triglycerides Cholesterol LDL Cholesterol VLDL Cholesterol HDL Cholesterol TSH Urine Color Urine Clarity Urine pH Ur Specific [place] Urine Protein Urine Glucose (UA) Urine Ketones Urine Occult Blood Urine Nitrite Urine Bilirubin Urine Urobilinogen Ur Leukocyte Esterase Urine RBC Urine WBC Ur Squamous Epith Cells Amorphous Sediment Urine Bacteria Hyaline Casts Urine Mucus 12/25/18 12/25/18 12/25/18 15:03 16:43 21:40 WBC RBC Hgb Hct MCV MCH MCHC RDW RDW Differential Plt Count MPV Immature Gran % (Auto) Neut % (Auto) Lymph % (Auto) [place] % (Auto) Eos % (Auto) Baso % (Auto) Absolute Neuts (auto) Absolute Lymphs (auto) Total Counted Sodium Potassium Chloride Carbon Dioxide Anion Gap BUN Creatinine Estim Creat Clear Calc Est GFR (MDRD) Af Amer Est GFR (MDRD) Non-Af BUN/Creatinine Ratio Glucose Calcium Total Bilirubin AST ALT Alkaline Phosphatase Ammonia 63.0 H Total Creatine Kinase Troponin I Total Protein Albumin Globulin Albumin/Globulin Ratio Triglycerides Cholesterol LDL Cholesterol VLDL Cholesterol HDL Cholesterol TSH 0.31 L Urine Color Yellow Urine Clarity Sl. Cloudy Urine pH 6.5 Ur Specific [place] 1.010 Urine Protein 15 H Urine Glucose (UA) Normal Urine Ketones 5 H Urine Occult Blood 10 H Urine Nitrite Negative Urine Bilirubin Negative Urine Urobilinogen 8 H Ur Leukocyte Esterase 25 H Urine RBC 0-5 SEEN Urine WBC 0-5 SEEN Ur Squamous Epith Cells 0-5 SEEN Amorphous Sediment 1+ Urine Bacteria 0 SEEN Hyaline Casts 0-5 SEEN Urine Mucus 0 SEEN 12/26/18 12/26/18 05:35 05:35 WBC 4.1 L RBC 3.80 L Hgb 12.6 Hct 36.7 L MCV 96.6 MCH 33.2 H MCHC 34.3 RDW 13.3 RDW Differential 45.1 H Plt Count 73 L MPV 10.0 Immature Gran % (Auto) 0.500 Neut % (Auto) 58.4 Lymph % (Auto) 26.6 [place] % (Auto) 11.6 H Eos % (Auto) 2.2 Baso % (Auto) 0.7 Absolute Neuts (auto) 2.4 Absolute Lymphs (auto) 1.10 Total Counted Not Reportable Sodium 136 Potassium 4.0 Chloride 103 Carbon Dioxide 25.0 Anion Gap 8 BUN 26 H Creatinine 1.08 H Estim Creat Clear Calc 35.28 Est GFR (MDRD) Af Amer 63 Est GFR (MDRD) Non-Af 52 L BUN/Creatinine Ratio 24.1 H Glucose 79 Calcium 9.0 Total Bilirubin 0.80 AST 47 H ALT 20 Alkaline Phosphatase 139 H Ammonia Total Creatine Kinase Troponin I Total Protein 6.5 Albumin 2.2 L Globulin 4.3 H Albumin/Globulin Ratio 0.5 L Triglycerides 53 Cholesterol 124 LDL Cholesterol 57 VLDL Cholesterol 11 HDL Cholesterol 56 TSH Urine Color Urine Clarity Urine pH Ur Specific [place] Urine Protein Urine Glucose (UA) Urine Ketones Urine Occult Blood Urine Nitrite Urine Bilirubin Urine Urobilinogen Ur Leukocyte Esterase Urine RBC Urine WBC Ur Squamous Epith Cells Amorphous Sediment Urine Bacteria Hyaline Casts Urine Mucus POC Glucose 12/25/18 15:19 POC Glucose 99 Clinical Impression(s) from Imaging Studies Brain CT 12/25/18 15:03 IMPRESSION: Small vessel ischemia. Electronically Signed: Kristen Luke MD at 16:43 EDT Tel , Service support , Abdomen/Pelvis CT 12/25/18 15:04 IMPRESSION: Extensive ascites. Cirrhotic liver. Bilateral pleural effusions associated with dependent consolidation within the lower lobes. Atherosclerosis. Electronically Signed: Kristen Luke MD at 16:41 EDT Tel , Service support , Chest CT 12/25/18 15:04 IMPRESSION: Bilateral pleural effusions associated with dependent consolidation within the lower lobes. Atherosclerosis. Electronically Signed: Kristen Luke MD at 16:47 EDT Tel , Service support , Cervical Spine CT 12/25/18 15:05 IMPRESSION: Multilevel degenerative changes, as described above. Electronically Signed: Kristen Luke MD at 16:53 EDT Tel , Service support , Shoulder X-Ray 12/25/18 16:20 IMPRESSION: Degenerative changes of the acromioclavicular joint. Electronically Signed: Kristen Luke MD at 16:54 EDT Tel , Service support , Medical Necessity - Tobacco Use Smoking Status: Never smoker Tobacco Use: Non-smoker Assessment/Plan All Active Problems Altered mental status (Acute) This is an 83 years old female patient presented to the emergency room because of altered mental status, fall and left facial droop, found to have encephalopathy probably metabolic, admitted for questionable strokelike symptoms for evaluation and she was found to have hyperammonemia. #1 altered mental status/probable hepatic encephalopathy: It is probably multifactorial secondary to history of Parkinson's disease and dementia as well as probable hepatic encephalopathy. Patient does have history of liver cirrhosis and ammonia level is elevated. Patient has not been on lactulose. Today, she is alert and oriented x3. No focal deficit except left facial droop. CT scan brain showed no acute findings. CT scan abdomen and pelvis revealed extensive ascites and bilateral pleural consultation, I doubt pneumonia. She is on lactulose and Aldactone. Plan to do MRI brain, 2D echocardiogram, bilateral carotid Doppler. #2 left facial droop/questionable strokelike symptoms: She still having left facial droop, no other focal deficit. As mentioned above, initial CT scan brain was unremarkable. MRI brain and 2D echocardiogram as well as carotid Doppler ordered. She is on aspirin. #3 fall: Without evidence of significant trauma or injury. CT scan brain unremarkable. CT scan cervical spine showed degenerative changes, no acute fracture or dislocation. X-ray of the left shoulder revealed degenerative changes of the ac acromioclavicular joint, no fractures. She is on tramadol as needed for pain. Plan for PT OT evaluation and treatment. #4 dehydration/mild hyponatremia: BUN and creatinine were slightly elevated, unknown baseline kidney function. Mucous membranes are dry. Patient has been on IV fluids, both BUN and creatinine improved. Sodium corrected with IV fluids. #5 liver cirrhosis/thrombocytopenia: With hyperammonemia, probable hepatic encephalopathy. Thrombocytopenia is likely chronic due to chronic liver disease. Started on lactulose, on Aldactone. Plan to repeat ammonia level tomorrow morning. #6 Parkinson's disease/dementia: It is probably contributing to her altered mental status. Continue Sinemet. #7 hypothyroidism: She is on levothyroxine. TSH is very low. Plan to decrease levothyroxine down to 100 mcg daily. #8 DVT prophylaxis: SCDs, no chemical prophylaxis because of thrombocytopenia. This note was generated with [employer] dictation software. It may contain incorrect words, spelling, and punctuation that were not noted in checking the note before signing. Code Visit Inpatient E&M: 54011 Subs Hosp L2
--- NOTE | 2018-12-26 08:06 | PN_ITS ---
Patient Problems: Active and Suspected Problems Altered mental status (Acute) Subjective: Chief complaint: Follow-up after admission for encephalopathy, questionable strokelike symptoms and dehydration. Patient seen and examined. No acute events overnight. Patient is alert, knows her full name, date of , oriented to time and person. She denied chest pain or shortness of breath. Denied abdominal pain, nausea vomiting. Denies cough or sputum production. Denied blurred vision or slurred speech. Denies focal arm or leg weakness. Her vital signs are stable. - Physical Exam General: Alert, Oriented x3, Cooperative, No apparent distress HEENT: Atraumatic, PERRLA, EOMI, Normocephalic Oral: Moist Mucosa, No Gingival or Mucosal Lesions/ Ulcerations Neck: Supple, No JVD, Trachea Midline, Thyroid Normal Size and Texture Lungs: Clear to auscultation, No rhonchi, No wheeze, No rales, Diminished Cardiovascular: Regular rate, Regular Rhythm, Normal S1, Normal S2, PMI Normal Abdomen: Bowel Sounds Present, Soft, Non Tender, Non-Distended, No Hepato- splenomegaly Extremities: No clubbing, No cyanosis, Edema Skin: No rashes, No breakdown Lymphatic: No Cervical, Supraclavicular, or Inguinal Adenopathy Neurological: Motor Exam 5/5 strength throughout, Facial Droop - Cranial nerves are intact except minimal left-sided facial droop. Psych/Mental Status: Normal Affect, Appropriate Vital Signs Temp Pulse Resp BP Pulse Ox 98.2 F 80 18 107/65 98 12/26/18 03:53 12/26/18 07:09 12/26/18 03:53 12/26/18 03:53 12/26/18 03:53 Oxygen Delivery Method Room Air Weight: 152 lb 5.431 oz Body Mass Index (BMI) 25.6 Finger Stick Blood Glucose 99 Intake and Output for Last 24 Hours 12/24/18 12/25/18 12/26/18 23:59 23:59 23:59 Intake Total 480 / 480 480 / 480 Output Total 1050 / 1050 Balance 480 / 480 -570 / -570 Laboratory Tests Past 24 Hrs 12/25/18 12/25/18 12/25/18 15:03 15:03 15:03 WBC 5.5 RBC 3.74 L Hgb 12.5 Hct 36.3 L MCV 97.1 MCH 33.4 H MCHC 34.4 RDW 13.7 RDW Differential 48.6 H Plt Count 83 L MPV 9.9 Immature Gran % (Auto) 0.200 Neut % (Auto) 62.2 Lymph % (Auto) 26.2 Rogers % (Auto) 9.0 Eos % (Auto) 2.0 Baso % (Auto) 0.4 Absolute Neuts (auto) 3.4 Absolute Lymphs (auto) 1.43 Total Counted Not Reportable Sodium 132 L Potassium 4.7 Chloride 105 Carbon Dioxide 25.0 Anion Gap 2 L BUN 29 H Creatinine 1.29 H Estim Creat Clear Calc 30.78 Est GFR (MDRD) Af Amer 51 L Est GFR (MDRD) Non-Af 42 L BUN/Creatinine Ratio 22.5 H Glucose 111 H Calcium 8.9 Total Bilirubin 1.00 AST 67 H ALT 11 L Alkaline Phosphatase 146 H Ammonia Total Creatine Kinase 103 Troponin I 0.029 Total Protein 7.0 Albumin 2.3 L Globulin 4.7 H Albumin/Globulin Ratio 0.5 L Triglycerides Cholesterol LDL Cholesterol VLDL Cholesterol HDL Cholesterol TSH Urine Color Urine Clarity Urine pH Ur Specific [place] Urine Protein Urine Glucose (UA) Urine Ketones Urine Occult Blood Urine Nitrite Urine Bilirubin Urine Urobilinogen Ur Leukocyte Esterase Urine RBC Urine WBC Ur Squamous Epith Cells Amorphous Sediment Urine Bacteria Hyaline Casts Urine Mucus 12/25/18 12/25/18 12/25/18 15:03 16:43 21:40 WBC RBC Hgb Hct MCV MCH MCHC RDW RDW Differential Plt Count MPV Immature Gran % (Auto) Neut % (Auto) Lymph % (Auto) Rogers % (Auto) Eos % (Auto) Baso % (Auto) Absolute Neuts (auto) Absolute Lymphs (auto) Total Counted Sodium Potassium Chloride Carbon Dioxide Anion Gap BUN Creatinine Estim Creat Clear Calc Est GFR (MDRD) Af Amer Est GFR (MDRD) Non-Af BUN/Creatinine Ratio Glucose Calcium Total Bilirubin AST ALT Alkaline Phosphatase Ammonia 63.0 H Total Creatine Kinase Troponin I Total Protein Albumin Globulin Albumin/Globulin Ratio Triglycerides Cholesterol LDL Cholesterol VLDL Cholesterol HDL Cholesterol TSH 0.31 L Urine Color Yellow Urine Clarity Sl. Cloudy Urine pH 6.5 Ur Specific [place] 1.010 Urine Protein 15 H Urine Glucose (UA) Normal Urine Ketones 5 H Urine Occult Blood 10 H Urine Nitrite Negative Urine Bilirubin Negative Urine Urobilinogen 8 H Ur Leukocyte Esterase 25 H Urine RBC 0-5 SEEN Urine WBC 0-5 SEEN Ur Squamous Epith Cells 0-5 SEEN Amorphous Sediment 1+ Urine Bacteria 0 SEEN Hyaline Casts 0-5 SEEN Urine Mucus 0 SEEN 12/26/18 12/26/18 05:35 05:35 WBC 4.1 L RBC 3.80 L Hgb 12.6 Hct 36.7 L MCV 96.6 MCH 33.2 H MCHC 34.3 RDW 13.3 RDW Differential 45.1 H Plt Count 73 L MPV 10.0 Immature Gran % (Auto) 0.500 Neut % (Auto) 58.4 Lymph % (Auto) 26.6 Rogers % (Auto) 11.6 H Eos % (Auto) 2.2 Baso % (Auto) 0.7 Absolute Neuts (auto) 2.4 Absolute Lymphs (auto) 1.10 Total Counted Not Reportable Sodium 136 Potassium 4.0 Chloride 103 Carbon Dioxide 25.0 Anion Gap 8 BUN 26 H Creatinine 1.08 H Estim Creat Clear Calc 35.28 Est GFR (MDRD) Af Amer 63 Est GFR (MDRD) Non-Af 52 L BUN/Creatinine Ratio 24.1 H Glucose 79 Calcium 9.0 Total Bilirubin 0.80 AST 47 H ALT 20 Alkaline Phosphatase 139 H Ammonia Total Creatine Kinase Troponin I Total Protein 6.5 Albumin 2.2 L Globulin 4.3 H Albumin/Globulin Ratio 0.5 L Triglycerides 53 Cholesterol 124 LDL Cholesterol 57 VLDL Cholesterol 11 HDL Cholesterol 56 TSH Urine Color Urine Clarity Urine pH Ur Specific [place] Urine Protein Urine Glucose (UA) Urine Ketones Urine Occult Blood Urine Nitrite Urine Bilirubin Urine Urobilinogen Ur Leukocyte Esterase Urine RBC Urine WBC Ur Squamous Epith Cells Amorphous Sediment Urine Bacteria Hyaline Casts Urine Mucus POC Glucose 12/25/18 15:19 POC Glucose 99 Clinical Impression(s) from Imaging Studies Brain CT 12/25/18 15:03 IMPRESSION: Small vessel ischemia. Electronically Signed: Kristen Luke MD at 16:43 EDT Tel , Service support , Abdomen/Pelvis CT 12/25/18 15:04 IMPRESSION: Extensive ascites. Cirrhotic liver. Bilateral pleural effusions associated with dependent consolidation within the lower lobes. Atherosclerosis. Electronically Signed: Kristen Luke MD at 16:41 EDT Tel , Service support , Chest CT 12/25/18 15:04 IMPRESSION: Bilateral pleural effusions associated with dependent consolidation within the lower lobes. Atherosclerosis. Electronically Signed: Kristen Luke MD at 16:47 EDT Tel , Service support , Cervical Spine CT 12/25/18 15:05 IMPRESSION: Multilevel degenerative changes, as described above. Electronically Signed: Kristen Luke MD at 16:53 EDT Tel , Service support , Shoulder X-Ray 12/25/18 16:20 IMPRESSION: Degenerative changes of the acromioclavicular joint. Electronically Signed: Kristen Luke MD at 16:54 EDT Tel , Service support , Medical Necessity - Tobacco Use Smoking Status: Never smoker Tobacco Use: Non-smoker Assessment/Plan All Active Problems Altered mental status (Acute) This is an 83 years old female patient presented to the emergency room because of altered mental status, fall and left facial droop, found to have encephalopathy probably metabolic, admitted for questionable strokelike symptoms for evaluation and she was found to have hyperammonemia. #1 altered mental status/probable hepatic encephalopathy: It is probably multifactorial secondary to history of Parkinson's disease and dementia as well as probable hepatic encephalopathy. Patient does have history of liver cirrhosis and ammonia level is elevated. Patient has not been on lactulose. Today, she is alert and oriented x3. No focal deficit except left facial droop. CT scan brain showed no acute findings. CT scan abdomen and pelvis revealed extensive ascites and bilateral pleural consultation, I doubt pneumonia. She is on lactulose and Aldactone. Plan to do MRI brain, 2D echocardiogram, bilateral carotid Doppler. #2 left facial droop/questionable strokelike symptoms: She still having left facial droop, no other focal deficit. As mentioned above, initial CT scan brain was unremarkable. MRI brain and 2D echocardiogram as well as carotid Doppler ordered. She is on aspirin. #3 fall: Without evidence of significant trauma or injury. CT scan brain unremarkable. CT scan cervical spine showed degenerative changes, no acute fracture or dislocation. X-ray of the left shoulder revealed degenerative changes of the ac acromioclavicular joint, no fractures. She is on tramadol as needed for pain. Plan for PT OT evaluation and treatment. #4 dehydration/mild hyponatremia: BUN and creatinine were slightly elevated, unknown baseline kidney function. Mucous membranes are dry. Patient has been on IV fluids, both BUN and creatinine improved. Sodium corrected with IV fluids. #5 liver cirrhosis/thrombocytopenia: With hyperammonemia, probable hepatic encephalopathy. Thrombocytopenia is likely chronic due to chronic liver disease. Started on lactulose, on Aldactone. Plan to repeat ammonia level tomorrow morning. #6 Parkinson's disease/dementia: It is probably contributing to her altered mental status. Continue Sinemet. #7 hypothyroidism: She is on levothyroxine. TSH is very low. Plan to decrease levothyroxine down to 100 mcg daily. #8 DVT prophylaxis: SCDs, no chemical prophylaxis because of thrombocytopenia. This note was generated with [employer] dictation software. It may contain incorrect words, spelling, and punctuation that were not noted in checking the note before signing. Code Visit Inpatient E&M: 05528 Subs Hosp L2
[2018-12-26] MEDS: Aspirin 81 MG TAB.CHEW PO (08:07)
[2018-12-26] MEDS: Lactulose 20 GM/30 ML UDC PO (10:20)
[2018-12-26] MEDS: Loratadine 10 MG Tablet PO (10:21)
[2018-12-26] MEDS: Furosemide 20 MG Tablet PO (10:21)
[2018-12-26] MEDS: Lidocaine 5% Patch 1 PATCH TOPICAL (10:22)
--- NOTE | 2018-12-26 10:22 | CASEMGMT ---
Assessment- NADIA completed assessment with patient's son, Meet. SW also called patient's daughter, Sofie who is her Healthcare POA to clarify home situation and d/c plan. Living situation- Patient's son Meet lives with patient. The home is a 2 story home, but patient is set up on 1st floor. They have a ramped entrance. PCP: Dr Ardon [facility]: [facility]: walker, wheelchair, shower chair, grab bars, and raised toilet seat. ADL's/IADL's: Patient receives assistance with all activities. Past SNF/rehab: No Past HH: Yes. Son did not remember name of agency. LW: Yes. Not on file. Daughter, Sofie will bring in copy POA: Yes. Not on file. Daughter Sofie is Healthcare POA and will bring a copy of documents to [facility]. Patient's son lives with her. She has an aide that comes to the home from 11a to 3p daily while they are at work. The aide helps with patient's personal care, meals and cleaning. Family sets up medications and gives them to patient. Patient usually uses her walker. Patient's daughter Sofie is her Healthcare POA. She said they have been working on getting patient approved for Medicaid. They have also been working with [facility] [place]. They were notified yesterday patient was approved for Adult Daycare at [facility] 5 days a week from 8a to 5p. She is not sure if patient has to be able to do things for herself. NADIA told her SW can find out. Discussed d/c plan and she and her sister Adrianne feel it would be best if patient went somewhere for rehab before going home. NADIA told her facilities that are in network with patient' insurance. They would prefer [facility]CU. NADIA told her SW will call [facility] and also check with TCU to see if they have beds available. NADIA told her SW will let her know answers. NADIA called Nadya and left her a message with patient's name. Await return call. Plan: Possibly [facility] pending bed availability, patient's insurance, and therapy evaluations. Adriana DILLARD PARTS CATALOGUER
[2018-12-26] MEDS: Famotidine 20 MG Tablet PO ×2 (10:24→20:53)
[2018-12-26] MEDS: Pantoprazole Sodium 20 MG Tablet PO (10:24)
--- NOTE | 2018-12-26 10:53 | PCM.CONS.GEN ---
Reason for Consult Date of Consultation: 12/26/18 History of Present Illness: The patient is a 83 year old F presented after a fall sat, then was noted to be abnl per caregiver, now back to baseline per family. apparently found on floor on saturday, no injury, patient doesnt remember how she ended up on the floor. most recent med change was one month ago. per admit note:The patient is a 83 year old F with past medical history of Parkinson's disease with dementia, hypothyroidism, osteoarthritis who was brought to the emergency department with altered mental status. Patient lives alone but has her children checking on her cuwlke-mex-ajtzc as well as an aide. The aide works 11am-3pm when they are at work. The aide noticed that she appeared more confused today, she was found to be on the floor. Patient has been falling and her gait is said to be unsteady and seems to be falling more to one side. Denied any fever or chills or diarrhea or nausea or vomiting. Patient intermittently appears confused for the children but this is persistent and worse. They had also noticed some left facial droop. No tingling no numbness. She complains of pain in her neck only. Denies any abdominal discomfort fever or chills In the ED, her vitals showed temperature of 98.4F, heart rate 60, blood pressure 145/69, respiratory rate was 14, SPO2 is 98% on room air. Admitting blood work showed RBC count of 5.5, hemoglobin 12.5, platelet count of 83. Her BMP shows sodium 132, potassium 4.7, chloride 105, bicarbonate 25, BUN 29, creatinine 1.29, no previous Cr to compare. Her LFTs showed AST of 6 7, ALT 11, ALP 146, total bilirubin of 1, albumin 2.3. Urinalysis is unremarkable. CT scan of the brain shows small vessel ischemia. Her abdomen and pelvis showed bilateral pleural effusions, cirrhosis of the liver, ascites. Chest CT showed bilateral pleural effusion, dependent consolidation within the lower lobes. Cervical spine CT showed multilevel degenerative disease. X-ray of the shoulder showed degenerative changes. Past Medical History Past Medical History (Chronic Problems): Chronic Problems Parkinson disease (Chronic) Hypothyroidism (Chronic) Dementia (Chronic) Allergies Sulfa (Sulfonamide Antibiotics) Allergy (Verified 12/25/18 14:39) Unknown Home Medications: Ambulatory Orders Medication Instructions Recorded Aspirin 81 mg PO DAILY 12/25/18 Carbidopa/Levodopa [Carbidopa-Levo 1 each PO TID 12/25/18 10-100 mg Odt] Levothyroxine [Synthroid] 125 mcg PO DAILY 12/25/18 Loratadine [Claritin] 10 mg PO DAILY 12/25/18 Omeprazole 20 mg PO DAILY 12/25/18 Rasagiline Mesylate [Azilect] 0.5 mg PO DAILY 12/25/18 Spironolactone 1 tab PO DAILY 12/25/18 traMADol [Ultram (G)] 50 mg PO BID PRN PRN 12/25/18 Surgical History: cataract, cholecystectomy, total knee arthroplasty - bilateral Psychiatric History: No pertinent psych hx 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 Lives: Alone Smoking Status: Never smoker Tobacco Use: Non-smoker Alcohol: None Drugs: None - *Family History Maternal History Items: No pertinent history Paternal History Items: Cancer - melanoma Review of Systems Constitutional: Denies: Chills, Fever, Weight Change Cardiovascular: Denies: Chest Pain, Palpitations Respiratory: Denies: Cough, Shortness of breath at rest, Sputum production Gastrointestinal: Denies: Abdominal Pain, Nausea, Vomiting Genitourinary: Denies: Dysuria Neurological: Reports: Balance problems Psychiatric: Denies: Anxiety, Depression, Homicidal Ideations, Suicidal Ideations Patient Problems: Active and Suspected Problems Altered mental status (Acute) - Physical Exam General: Alert, Oriented x3, Cooperative HEENT: PERRLA, EOMI Neurological: Cranial nerves II-XII grossly intact, - - masked facies, Psych/Mental Status: Alert and oriented to time, place, person, mood and affect - knows year, location, president, not month Vital Signs Temp Pulse Resp BP Pulse Ox 36.6 C 80 16 109/56 L 95 12/26/18 08:00 12/26/18 09:31 12/26/18 09:31 12/26/18 08:00 12/26/18 09:31 Oxygen Delivery Method Room Air Weight: 69.1 kg Body Mass Index (BMI) 25.6 Finger Stick Blood Glucose 99 Intake and Output for Last 24 Hours 12/24/18 12/25/18 12/26/18 23:59 23:59 23:59 Intake Total 480 / 480 480 / 480 Output Total 1050 / 1050 Balance 480 / 480 -570 / -570 Laboratory Tests Past 24 Hrs 12/25/18 12/25/18 12/25/18 15:03 15:03 15:03 WBC 5.5 RBC 3.74 L Hgb 12.5 Hct 36.3 L MCV 97.1 MCH 33.4 H MCHC 34.4 RDW 13.7 RDW Differential 48.6 H Plt Count 83 L MPV 9.9 Immature Gran % (Auto) 0.200 Neut % (Auto) 62.2 Lymph % (Auto) 26.2 Tift % (Auto) 9.0 Eos % (Auto) 2.0 Baso % (Auto) 0.4 Absolute Neuts (auto) 3.4 Absolute Lymphs (auto) 1.43 Total Counted Not Reportable Sodium 132 L Potassium 4.7 Chloride 105 Carbon Dioxide 25.0 Anion Gap 2 L BUN 29 H Creatinine 1.29 H Estim Creat Clear Calc 30.78 Est GFR (MDRD) Af Amer 51 L Est GFR (MDRD) Non-Af 42 L BUN/Creatinine Ratio 22.5 H Glucose 111 H Calcium 8.9 Total Bilirubin 1.00 AST 67 H ALT 11 L Alkaline Phosphatase 146 H Ammonia Total Creatine Kinase 103 Troponin I 0.029 Total Protein 7.0 Albumin 2.3 L Globulin 4.7 H Albumin/Globulin Ratio 0.5 L Triglycerides Cholesterol LDL Cholesterol VLDL Cholesterol HDL Cholesterol TSH Urine Color Urine Clarity Urine pH Ur Specific [place] Urine Protein Urine Glucose (UA) Urine Ketones Urine Occult Blood Urine Nitrite Urine Bilirubin Urine Urobilinogen Ur Leukocyte Esterase Urine RBC Urine WBC Ur Squamous Epith Cells Amorphous Sediment Urine Bacteria Hyaline Casts Urine Mucus 12/25/18 12/25/18 12/25/18 15:03 16:43 21:40 WBC RBC Hgb Hct MCV MCH MCHC RDW RDW Differential Plt Count MPV Immature Gran % (Auto) Neut % (Auto) Lymph % (Auto) [place] % (Auto) Eos % (Auto) Baso % (Auto) Absolute Neuts (auto) Absolute Lymphs (auto) Total Counted Sodium Potassium Chloride Carbon Dioxide Anion Gap BUN Creatinine Estim Creat Clear Calc Est GFR (MDRD) Af Amer Est GFR (MDRD) Non-Af BUN/Creatinine Ratio Glucose Calcium Total Bilirubin AST ALT Alkaline Phosphatase Ammonia 63.0 H Total Creatine Kinase Troponin I Total Protein Albumin Globulin Albumin/Globulin Ratio Triglycerides Cholesterol LDL Cholesterol VLDL Cholesterol HDL Cholesterol TSH 0.31 L Urine Color Yellow Urine Clarity Sl. Cloudy Urine pH 6.5 Ur Specific [place] 1.010 Urine Protein 15 H Urine Glucose (UA) Normal Urine Ketones 5 H Urine Occult Blood 10 H Urine Nitrite Negative Urine Bilirubin Negative Urine Urobilinogen 8 H Ur Leukocyte Esterase 25 H Urine RBC 0-5 SEEN Urine WBC 0-5 SEEN Ur Squamous Epith Cells 0-5 SEEN Amorphous Sediment 1+ Urine Bacteria 0 SEEN Hyaline Casts 0-5 SEEN Urine Mucus 0 SEEN 12/26/18 12/26/18 05:35 05:35 WBC 4.1 L RBC 3.80 L Hgb 12.6 Hct 36.7 L MCV 96.6 MCH 33.2 H MCHC 34.3 RDW 13.3 RDW Differential 45.1 H Plt Count 73 L MPV 10.0 Immature Gran % (Auto) 0.500 Neut % (Auto) 58.4 Lymph % (Auto) 26.6 [place]ift % (Auto) 11.6 H Eos % (Auto) 2.2 Baso % (Auto) 0.7 Absolute Neuts (auto) 2.4 Absolute Lymphs (auto) 1.10 Total Counted Not Reportable Sodium 136 Potassium 4.0 Chloride 103 Carbon Dioxide 25.0 Anion Gap 8 BUN 26 H Creatinine 1.08 H Estim Creat Clear Calc 35.28 Est GFR (MDRD) Af Amer 63 Est GFR (MDRD) Non-Af 52 L BUN/Creatinine Ratio 24.1 H Glucose 79 Calcium 9.0 Total Bilirubin 0.80 AST 47 H ALT 20 Alkaline Phosphatase 139 H Ammonia Total Creatine Kinase Troponin I Total Protein 6.5 Albumin 2.2 L Globulin 4.3 H Albumin/Globulin Ratio 0.5 L Triglycerides 53 Cholesterol 124 LDL Cholesterol 57 VLDL Cholesterol 11 HDL Cholesterol 56 TSH Urine Color Urine Clarity Urine pH Ur Specific [place] Urine Protein Urine Glucose (UA) Urine Ketones Urine Occult Blood Urine Nitrite Urine Bilirubin Urine Urobilinogen Ur Leukocyte Esterase Urine RBC Urine WBC Ur Squamous Epith Cells Amorphous Sediment Urine Bacteria Hyaline Casts Urine Mucus POC Glucose 12/25/18 15:19 POC Glucose 99 Current Home Med List Medication Instructions Recorded Confirmed Type Aspirin 81 mg PO DAILY 12/25/18 12/25/18 History Carbidopa/Levodopa [Carbidopa-Levo 1 each PO TID 12/25/18 12/25/18 History 10-100 mg Odt] Levothyroxine [Synthroid] 125 mcg PO DAILY 12/25/18 12/25/18 History Loratadine [Claritin] 10 mg PO DAILY 12/25/18 12/25/18 History Omeprazole 20 mg PO DAILY 12/25/18 12/25/18 History Rasagiline Mesylate [Azilect] 0.5 mg PO DAILY 12/25/18 12/25/18 History Spironolactone 1 tab PO DAILY 12/25/18 12/25/18 History traMADol [Ultram (G)] 50 mg PO BID PRN PRN 12/25/18 12/25/18 History Current Medications Generic Name Dose Route Start Last Admin Trade Name Freq PRN Reason Stop Dose Admin Al Hydroxide/Mg Hydroxide 30 ml 12/25/18 19:56 Mylanta Ii PO Q6H PRN PRN Gastric Burning Albuterol Sulfate 2.5 mg 12/25/18 19:56 Ventolin Aerosols INHALATION Q2H PRN PRN SOB/Wheezing Aspirin 81 mg 12/26/18 08:00 12/26/18 08:07 Aspirin, Baby PO 81 mg DAILYCM JAMIN Administration Carbidopa/Levodopa 1 tablet 12/26/18 07:00 12/26/18 10:36 Sinemet PO 1 tablet TIDAC JAMIN Administration Famotidine 20 mg 12/25/18 22:00 12/26/18 10:24 Pepcid PO 20 mg BID JAMIN Administration Furosemide 20 mg 12/26/18 10:00 12/26/18 10:21 Lasix PO 20 mg DAILY JAMIN Administration Lactulose 20 gm 12/25/18 22:00 12/26/18 10:20 Chronulac, Cephulac PO 20 gm BID JAMIN Administration Levothyroxine Sodium 100 mcg 12/27/18 06:00 Synthroid PO DAILY@0600 JAMIN Lidocaine 1 patch 12/26/18 10:00 12/26/18 10:22 Lidoderm Patch TOPICAL 1 patch DAILY JAMIN Administration Protocol Loratadine 10 mg 12/26/18 10:00 12/26/18 10:21 Claritin PO 10 mg DAILY JAMIN Administration Nitroglycerin 0.4 mg 12/25/18 19:56 Nitrostat SUBLINGUAL Q5M PRN CARDIAC/CHEST PAIN Ondansetron HCl 4 mg 12/25/18 19:56 Zofran IV Q8H PRN PRN NAUSEA/VOMITING Pantoprazole Sodium 20 mg 12/26/18 10:00 12/26/18 10:24 Protonix PO 20 mg DAILY JAMIN Administration Rasagiline 0.5 mg 12/26/18 10:00 12/26/18 10:20 Azilect PO 0.5 mg DAILY JAMIN Administration Sodium Chloride 5 - 15 ml 12/25/18 20:55 IV UD PRN SALINE FLUSH Tramadol HCl 50 mg 12/25/18 19:56 Ultram PO BID PRN PRN PAIN mri reviewed, no acute. Assessment/Plan All Active Problems Altered mental status (Acute) encephalopathy, likely metabolic, no evidence of neurologic injury, complicated by pd, ? uti rec pt as op no other neurologic investigations needed uti rx per hospitalists
--- NOTE | 2018-12-26 11:00 | NURSING ---
Pt had echo and MRI this AM, ST here to evaluate and pt put on Mechanical soft diet/chin tuck in chair position. Supervised feeds with staff or family is acceptable.
--- NOTE | 2018-12-26 13:42 | CASEMGMT ---
Addendum entered by Adriana Jernigan 12/26/18 14:28: TCU will have a bed for patient on Saturday. Patient needs insurance authorization before she can go so she would be here until Saturday anyway. SW called patient's daughter Sofie and let her know this information and she was in agreement. Plan: [facility]CU under skilled level of care. Pending insurance approval. Adriana SKY Original Note: SW spoke with patient's daughter, Sofie. SW let her know TCU may not have a bed for patient. SW also explained we are waiting on therapy to evaluate her as well. NADIA told her that SW did call [facility] and patient does not have to be able to do certain things to go to daycare. Await PT/OT evaluations. Adriana SKY
--- NOTE | 2018-12-26 16:11 | CHAPLAIN ---
Type of Pastoral Visit _x__ Initial Visit ___ Follow-up Visit ___ On-call Visit ___ General Patient Visit ___ Spiritual Assessment ___ Family Conference ___ Bereavement ___ Rapid Response ___ Code Blue ___ Other (describe below) Pastoral Care Referral From _x__ Patient ___ Family ___ Nurse ___ Physician ___ Foam Cutting Supervisor ___ Combination Presser ___ Other (describe below) Sacrament/Intervention _x__ Active listening ___ Anointing ___ Uatsdin ___ Bereavement ___ Communion ___ Gabriela exploration ___ ___ Life review _x__ Prayer ___ Reconciliation ___ Sacrament of Sick _x__ Supportive presence ___ Wedding ___ Other (describe below) Pastoral Comments
--- NOTE | 2018-12-26 19:56 | MRI_ITS ---
STUDY: MRI BRAIN WITHOUT CONTRAST REASON FOR EXAM: Female, 83 years old. CVA, left facial droop x 5 days. TECHNIQUE: Standardized multiplanar fat and water weighted pulse sequences were obtained. COMPARISON: 12/25/2018 CT of the head FINDINGS: There is mild cerebral atrophy with widening of the extra-axial spaces and ventricular dilatation. There are a limited number of small white matter hyperintensities, distributed throughout the deep white matter tracts of the cerebral hemispheres, consistent with mild chronic white matter ischemic changes. Normal bilateral basal ganglia. Normal thalami. There is no extra-axial fluid accumulation. Normal flow voids within the major intracranial circulation suggesting patency by spin echo criteria. Normal sella turcica, pituitary gland, infundibular stalk, optic chiasm and hypothalamus. Normal tectal plate and pineal gland. Normal midbrain, francisco and medulla. Normal cerebellum. Normal basal cisterns. MRI/Brain without Contrast IMPRESSION: No acute intracranial abnormality. Mild chronic microvascular ischemic changes. Electronically Signed: Ana Cristina Velez MD at 10:15 EDT Tel , Service support ,
[2018-12-27] VITALS (9 sets, daily range): BP systolic 125–163; BP diastolic 62–75; PULSE 76–99; RESP 15–18; TEMP 36.6–37.5; O2SAT 93–95
[2018-12-27] MEDS: MELATONIN 3 MG TABLET PO (00:17)
[2018-12-27] MEDS: Levothyroxine 100 MCG Tablet PO (06:32)
[2018-12-27] MEDS: traMADol 50 MG Tablet PO (06:32)
[2018-12-27] MEDS: Carbidopa/Levodopa 10/100 Tablet PO ×3 (06:32→18:25)
--- NOTE | 2018-12-27 09:26 | NURSING ---
Daughter Sofie phones and is given patient update.
--- NOTE | 2018-12-27 12:56 | PCM.PROGNOTE ---
Patient Problems: Active and Suspected Problems Altered mental status (Acute) Subjective: Pt resting comfortably in bed NAD. Very lethargic this AM. Sleep patterns have been disturbed, per son, along with worsening of memory recently. Pt received melatonin last night and responded well to it. Plan is for TCU Saturday. Son is agreeable. - Physical Exam General: Alert, Cooperative, Lethargic HEENT: Atraumatic, PERRLA, EOMI, Normocephalic Neck: Supple, No JVD, Negative Carotid Bruits Lungs: Clear to auscultation, Normal air movement Cardiovascular: Regular rate, No murmurs Abdomen: Bowel Sounds Present, Soft, Non Tender Extremities: No edema, Capillary Refill Less than 3 Seconds Skin: No rashes, No breakdown Musculoskeletal: No Tenderness to Palpation of Joints or Extremities Neurological: Cranial nerves II-XII grossly intact Psych/Mental Status: Normal Affect, Appropriate, Alert and oriented to time, place, person, mood and affect Vital Signs Temp Pulse Resp BP Pulse Ox 97.8 F 96 16 125/65 H 93 12/27/18 08:55 12/27/18 08:55 12/27/18 08:55 12/27/18 08:55 12/27/18 08:55 Oxygen Delivery Method Room Air Weight: 151 lb 10.848 oz Body Mass Index (BMI) 25.6 Finger Stick Blood Glucose 99 Intake and Output for Last 24 Hours 12/25/18 12/26/18 12/27/18 23:59 23:59 23:59 Intake Total 480 / 480 720 / 720 Output Total 1050 / 1050 Balance 480 / 480 -330 / -330 Laboratory Tests Past 24 Hrs 12/27/18 06:28 Ammonia 54.0 H Medical Necessity - Tobacco Use Smoking Status: Never smoker Tobacco Use: Non-smoker Assessment/Plan All Active Problems Altered mental status (Acute) 1. Acute hepatic encephalopathy and worsening of underlying dementia - continue current plan. Titrate lactulose to 3 loose BM/day. UTI ruled out. Stroke ruled out. 2. Debility, fall - acute injury ruled out. PTOT, prn pain management 3. Hyponatremia 2/2 dehydration - resolved. 4. Hx liver cirrhosis, thrombocytopenia - laculose, aldactone 5. Parkinson dz/ Dementia - Sinemet. check b12 and vitD 6. Hypothyroidism - tsh low, check t4 DVT ppx: SCDs. DC planning: TCU Saturday. This patient was seen by Phillip Disla PA-C under the supervision of Dr. Hobbs
[2018-12-27] MEDS: Lidocaine 5% Patch 1 PATCH TOPICAL (13:26)
[2018-12-27] MEDS: Aspirin 81 MG TAB.CHEW PO (13:29)
[2018-12-27] MEDS: Lactulose 20 GM/30 ML UDC PO (13:31)
[2018-12-27] MEDS: Loratadine 10 MG Tablet PO (13:32)
[2018-12-27] MEDS: Famotidine 20 MG Tablet PO (13:32)
[2018-12-27] MEDS: Furosemide 20 MG Tablet PO (13:32)
[2018-12-27] MEDS: Pantoprazole Sodium 20 MG Tablet PO (13:33)
[2018-12-27 14:03] LABS: T4 Free Direct 1.81 ng/dL (0.76-1.46)
[2018-12-27] MEDS: Lactulose 20 GM/30 ML UDC 200 GM RECTAL (18:25)
--- NOTE | 2018-12-27 18:30 | NURSING ---
Patient given Enulose enema per order. Tolerated well. No results yet.
[2018-12-28] VITALS (8 sets, daily range): BP systolic 105–166; BP diastolic 54–73; PULSE 70–82; RESP 15–17; TEMP 36.5–37.1; O2SAT 94–100
[2018-12-28] MEDS: Carbidopa/Levodopa 10/100 Tablet PO ×3 (06:36→17:39)
[2018-12-28 07:18] LABS: Anion Gap 10 (5-15); BUN 25 mg/dL (7-18); BUN/Creat Ratio 23.8 RATIO (10-20); Calcium,Total 8.9 mg/dL (8.5-10.1); Chloride 104 mmol/L (98-107); Creatinine, Serum 1.05 mg/dL (0.55-1.02); EST Glomerular Filtration Rate 53 mL/min (>60); Est Glom Filt Rate - Afr Amer 65 mL/min (>60); Estimated Creatinine Clearance 36.29 ml/min; Glucose 74 mg/dL (74-106); Magnesium 1.5 mg/dL (1.6-2.6); Phosphorus 2.7 mg/dL (2.5-4.9); Potassium 3.9 mmol/L (3.5-5.1); Sodium Level 137 mmol/L (136-145)
[2018-12-28 08:56] LABS: International Normalized Ratio 1.4; Prothrombin Time (Protime)PT. 16.6 SECONDS (11.7-14.9)
[2018-12-28] MEDS: Furosemide 20 MG Tablet PO (09:47)
[2018-12-28] MEDS: Lidocaine 5% Patch 1 PATCH TOPICAL (09:47)
[2018-12-28] MEDS: Loratadine 10 MG Tablet PO (09:47)
[2018-12-28] MEDS: Aspirin 81 MG TAB.CHEW PO (09:47)
[2018-12-28] MEDS: Pantoprazole Sodium 20 MG Tablet PO (09:48)
[2018-12-28] MEDS: Famotidine 20 MG Tablet PO ×2 (09:48→21:05)
[2018-12-28] MEDS: 0.9% NaCl Peripheral Flush Adult/Peds IV ×2 (10:41→21:05)
[2018-12-28] MEDS: Acetaminophen 325 MG Tablet 650 MG PO (11:47)
--- NOTE | 2018-12-28 13:44 | NURSING ---
Daughter Adrianne phones for update. Requesting to speak with hospitalist about care. RN spoke with Dr. Hobbs. Per Dr. Hobbs, family needs to call in the morning and set up a time with CM to discuss patient care needs and code status. RN informed Adrianne and she voiced understanding of same.
--- NOTE | 2018-12-28 15:28 | PCM.PROGNOTE ---
Patient Problems: Active and Suspected Problems Altered mental status (Acute) Subjective: Pt more alert today. She was up talking to nursing and her family this AM. She is now out of bed up into the chair. Her only complain is back pain. She remains pleasantly confused. She does not appear agitated. She is somewhat lethargic at the time of interview. - Physical Exam General: Alert, Cooperative, Confused, Lethargic HEENT: Atraumatic, PERRLA, EOMI, Normocephalic Neck: Supple, No JVD, Negative Carotid Bruits Lungs: Clear to auscultation, Normal air movement Cardiovascular: Regular rate, No murmurs Abdomen: Bowel Sounds Present, Soft, Non Tender Extremities: No edema, Capillary Refill Less than 3 Seconds Skin: No rashes, No breakdown, - - pallor Musculoskeletal: No Tenderness to Palpation of Joints or Extremities Neurological: Cranial nerves II-XII grossly intact Psych/Mental Status: Normal Affect, Appropriate, Alert and oriented to time, place, person, mood and affect Vital Signs Temp Pulse Resp BP Pulse Ox 98.4 F 80 16 154/73 H 94 12/28/18 14:05 12/28/18 15:19 12/28/18 14:05 12/28/18 14:05 12/28/18 14:05 Oxygen Delivery Method Room Air Weight: 151 lb 10.848 oz Body Mass Index (BMI) 25.6 Finger Stick Blood Glucose 99 Intake and Output for Last 24 Hours 12/26/18 12/27/18 12/28/18 23:59 23:59 23:59 Intake Total 720 / 720 240 / 240 169.1 / 169.1 Output Total 1050 / 1050 825 / 825 350 / 350 Balance -330 / -330 -585 / -585 -180.9 / -180.9 Laboratory Tests Past 24 Hrs 12/28/18 12/28/18 12/28/18 06:44 06:44 06:44 PT 16.6 H INR 1.4 Sodium 137 Potassium 3.9 Chloride 104 Carbon Dioxide 23.0 Anion Gap 10 BUN 25 H Creatinine 1.05 H Estim Creat Clear Calc 36.29 Est GFR (MDRD) Af Amer 65 Est GFR (MDRD) Non-Af 53 L BUN/Creatinine Ratio 23.8 H Glucose 74 Calcium 8.9 Phosphorus 2.7 Magnesium 1.5 L Ammonia 34.0 H Medical Necessity - Tobacco Use Smoking Status: Never smoker Tobacco Use: Non-smoker Assessment/Plan All Active Problems Altered mental status (Acute) 1. Altered mental status 2/2 hepatic encephalopathy, hyperthyroidism, and medication reaction (azilect) and worsening of underlying dementia - continue current plan. Titrate lactulose to 3 loose BM/day. UTI ruled out. Stroke ruled out. T4 elevated, synthroid held for now, will likely need lower dose. Pts mentation and wakefullness have improved. Low mag, repleted. 2. Debility, fall - acute injury ruled out. PTOT, prn pain management 3. Hyponatremia 2/2 dehydration - resolved. 4. Hx liver cirrhosis, thrombocytopenia - lactulose, aldactone. Had 3 BM yesterday. Continue current dose. 5. Parkinson dz/ Dementia - Sinemet. b12 and vitD still pending. plan to remain off Azilect. 6. Hypothyroidism - tsh low, check t4 DVT ppx: SCDs. DC planning: TCU Saturday. Family to meet and discuss dc plan, there is some disagreement about what may be best between the family members. This patient was seen by Phillip Disla PA-C under the supervision of Dr. Hobbs
[2018-12-28] MEDS: Lactulose 20 GM/30 ML UDC PO ×2 (17:38→21:05)
[2018-12-28] MEDS: Acetaminophen 500 MG Tablet 1000 MG PO (17:39)
[2018-12-28] MEDS: Ketorolac 15 MG/ML Vial IV (21:04)
[2018-12-28] MEDS: traMADol 50 MG Tablet PO (23:33)
[2018-12-29] VITALS (11 sets, daily range): BP systolic 88–159; BP diastolic 48–85; PULSE 71–98; RESP 14–18; TEMP 36.7–37.1; O2SAT 94–98
[2018-12-29 05:48] LABS: Hematocrit 30.1 % (37-47); Hemoglobin 10.5 g/dl (12.0-15.0); Mean Corp Hgb Conc 34.9 g/gl (32-36); Mean Corpuscular Hgb 33.9 pg (27.0-32.0); Mean Corpuscular Volume 97.1 fL (81-99); Mean Platelet Vol. 9.6 fl (6.2-12.0); Platelet Count 84 K/mm3 (150-450); RBC Distribution Width CV 13.2 % (11.6-14.6); RBC Distribution Width SD 44.2 fl (35.1-43.9); White Blood Count 5.5 K/mm3 (4.4-11.0)
[2018-12-29 06:04] LABS: Scan Indicated on CBC? Y/N NO
[2018-12-29] MEDS: Acetaminophen 500 MG Tablet 1000 MG PO ×3 (06:53→20:59)
[2018-12-29] MEDS: Lactulose 20 GM/30 ML UDC PO ×3 (06:54→21:06)
[2018-12-29] MEDS: Carbidopa/Levodopa 10/100 Tablet PO ×3 (06:58→15:57)
[2018-12-29] MEDS: Dext 5%-0.45% NS 1,000 ML 75 ML IV (09:23)
[2018-12-29] MEDS: Aspirin 81 MG TAB.CHEW PO (09:24)
[2018-12-29] MEDS: 0.9% NaCl Peripheral Flush Adult/Peds IV (09:24)
[2018-12-29] MEDS: Pantoprazole Sodium 20 MG Tablet PO (09:24)
[2018-12-29] MEDS: Furosemide 20 MG Tablet PO (09:24)
[2018-12-29] MEDS: Loratadine 10 MG Tablet PO (09:24)
[2018-12-29] MEDS: Lidocaine 5% Patch 1 PATCH TOPICAL (09:25)
[2018-12-29] MEDS: Famotidine 20 MG Tablet PO ×2 (09:25→20:59)
[2018-12-29 10:03] LABS: Vitamin B12 830 pg/mL (211-911)
--- NOTE | 2018-12-29 11:26 | PCM.EXTCARCO ---
- Diet 12/25/18 21:08 Diet: Cardiac/Low Cholesterol Food consistency:: Mechanical Soft/Ground Liquid Consistency:: Regular/Thin Is pt able to select menu?: No Diet Comments: Supervision w/ TOTAL FEED PRN; seated in chair, chin tuck w/ straw - Routine Orders/Code Status Suppository Type: Dulcolax 10mg Suppository Frequency: Daily PRN Routine Lab Work: CBC - 7 days, BMP - 7 days, - - TSH and Free T4 in 2 weeks - Wound(s) Left Lower leg Wound Type: scratches - Therapies Physical Therapy: Eval and Treat Occupational Therapy: Eval and Treat - Problem/Diagnosis (1) Hepatic encephalopathy Status: Acute Current Visit: Yes (2) Hyperthyroidism Status: Acute Current Visit: Yes (3) Altered mental status Status: Acute Current Visit: Yes (4) Dementia Status: Chronic Current Visit: Yes (5) Hypothyroidism Status: Chronic Current Visit: Yes (6) Parkinson disease Status: Chronic Current Visit: Yes (7) Cirrhosis Status: Chronic Current Visit: Yes - Allergies/Procedures Done in Hospital Allergies/Adverse Reactions: Allergies Sulfa (Sulfonamide Antibiotics) Allergy (Verified 12/25/18 14:39) Unknown Procedures: None - Type of Care/Length of Stay Estimated LOS: Convalescent Care Less Than 30 days Type of Care Needed: Skilled Rehab Potential: Fair Prognosis: Fair - Additional Orders/Day of Discharge Day of Discharge: 12/29/18 - Follow Up Care Primary Care Physician: Jaycob Ardon [Primary Care Provider] - Please follow up with your Primary Care Physician in: 2 weeks Please Follow Up With: Neurology When: 2 weeks
--- NOTE | 2018-12-29 14:50 | CASEMGMT ---
Addendum entered by Adriana Jernigan 12/29/18 15:17: Patient is not being discharged to TCU today. SW notified patient, family in room, patient's daughter Sofie, and secretary of police that patient will be discharged tomorrow. NADIA also let Nadya in TCU know. Adriana SKY Original Note: Patient was approved to go to [facility] TCU. SW notified RN and secretary of police. SW also called patient's daughter Sofie, her POA, and let her know. SW also notified the family members that were in the room. Plan: [facility] TCU under skilled level of care. Adriana SKY
--- NOTE | 2018-12-29 16:48 | PCM.PROGNOTE ---
Patient Problems: Active and Suspected Problems Altered mental status (Acute) Hepatic encephalopathy (Acute) Hyperthyroidism (Acute) Subjective: Lethargic, rousable. C/o generalized body aches. No SOB. No MARRUFO, dizziness, LH. No CP, palp. Continues to be more alert. Up in chair today without discomfort. - Physical Exam General: Alert, Cooperative, Confused, - - frail HEENT: Atraumatic, PERRLA, EOMI, Normocephalic Neck: Supple, No JVD, Negative Carotid Bruits Lungs: Clear to auscultation, Normal air movement Cardiovascular: Regular rate, No murmurs Abdomen: Bowel Sounds Present, Soft, Non Tender Extremities: No edema, Capillary Refill Less than 3 Seconds Skin: No rashes, No breakdown Musculoskeletal: No Tenderness to Palpation of Joints or Extremities Neurological: Cranial nerves II-XII grossly intact Psych/Mental Status: Normal Affect, Appropriate, Alert and oriented to time, place, person, mood and affect Vital Signs Temp Pulse Resp BP Pulse Ox 98.1 F 98 18 149/71 H 97 12/29/18 15:15 12/29/18 15:15 12/29/18 15:15 12/29/18 15:15 12/29/18 15:15 Oxygen Delivery Method Room Air Weight: 153 lb 3.54 oz Body Mass Index (BMI) 25.6 Finger Stick Blood Glucose 99 Intake and Output for Last 24 Hours 12/27/18 12/28/18 12/29/18 23:59 23:59 23:59 Intake Total 240 / 240 479.1 / 479.1 1259 / 1259 Output Total 825 / 825 625 / 625 450 / 450 Balance -585 / -585 -145.9 / -145.9 809 / 809 Laboratory Tests Past 24 Hrs 12/27/18 12/29/18 13:18 05:34 WBC 5.5 RBC 3.10 L Hgb 10.5 L Hct 30.1 L MCV 97.1 MCH 33.9 H MCHC 34.9 RDW 13.2 RDW Differential 44.2 H Plt Count 84 L MPV 9.6 Vitamin B12 830 Vitamin D 25-Hydroxy 57.0 Medical Necessity - Tobacco Use Smoking Status: Never smoker Tobacco Use: Non-smoker Assessment/Plan All Active Problems Altered mental status (Acute) Hepatic encephalopathy (Acute) Hyperthyroidism (Acute) 1. Altered mental status 2/2 hepatic encephalopathy, hyperthyroidism, and medication reaction (azilect) and worsening of underlying dementia - continue current plan. Titrate lactulose to 3 loose BM/day. UTI ruled out. Stroke ruled out. -Mentation continues to gradually improve -Neuro re-consult regarding Azilect and possible need for alternative regimen -Restart synthroid at lower dose. 2. Debility, fall - acute injury ruled out. PTOT, prn pain management 3. Hyponatremia 2/2 dehydration - resolved. 4. Hx liver cirrhosis, thrombocytopenia - lactulose, aldactone. Had 3 BM yesterday. Continue current dose. 5. Parkinson dz/ Dementia - Sinemet. b12 and vitD normal. Remains off Azilect. 6. Hypothyroidism - as above. Was hyperthyroid, restarting at lower dose. DVT ppx: SCDs. DC planning: TCU at [place]. This patient was seen by Phillip Disla PA-C under the supervision of Dr. Hobbs
[2018-12-30] MEDS: Dext 5%-0.45% NS 1,000 ML 75 ML IV (01:16)
[2018-12-30 02:53] VITALS: PULSE 78
[2018-12-30 03:00] VITALS: BP 127/66; PULSE 77; RESP 18; TEMP 37; O2SAT 96
[2018-12-30] MEDS: Carbidopa/Levodopa 10/100 Tablet PO ×2 (06:26→13:14)
[2018-12-30] MEDS: Acetaminophen 500 MG Tablet 1000 MG PO ×2 (06:26→13:14)
[2018-12-30] MEDS: Levothyroxine 100 MCG Tablet PO (06:26)
[2018-12-30 06:52] VITALS: PULSE 72
[2018-12-30 07:15] LABS: Hematocrit 32.3 % (37-47); Hemoglobin 11.2 g/dl (12.0-15.0); Mean Corp Hgb Conc 34.7 g/gl (32-36); Mean Corpuscular Hgb 33.4 pg (27.0-32.0); Mean Corpuscular Volume 96.4 fL (81-99); Mean Platelet Vol. 9.6 fl (6.2-12.0); Platelet Count 93 K/mm3 (150-450); RBC Distribution Width CV 13.7 % (11.6-14.6); RBC Distribution Width SD 47.6 fl (35.1-43.9); Red Blood Count 3.35 M/mm3 (4.2-5.4); White Blood Count 5.6 K/mm3 (4.4-11.0)
[2018-12-30 07:23] LABS: Scan Indicated on CBC? Y/N NO
[2018-12-30 09:00] VITALS: BP 139/64; PULSE 78; RESP 16; TEMP 37; O2SAT 96
[2018-12-30] MEDS: Lidocaine 5% Patch 1 PATCH TOPICAL (13:13)
[2018-12-30] MEDS: Furosemide 20 MG Tablet PO (13:13)
[2018-12-30] MEDS: Pantoprazole Sodium 20 MG Tablet PO (13:13)
[2018-12-30] MEDS: Loratadine 10 MG Tablet PO (13:13)
[2018-12-30] MEDS: Famotidine 20 MG Tablet PO (13:13)
[2018-12-30] MEDS: Aspirin 81 MG TAB.CHEW PO (13:13)
--- NOTE | 2018-12-30 14:11 | CASEMGMT ---
Addendum entered by Kristen 12/30/18 14:12: [facility] [place]: PH: [phone] Original Note: PETER CODY NOTE: Pt is current with [facility] [place]. Call placed to them @ [phone] and spoke w/Josh. He was notified pt is being discharged to TCU today. He was provided with TCU's phone number. [place] MEYERS RN CM
[2018-12-30 15:00] VITALS: BP 136/88; PULSE 66; RESP 16; TEMP 36.6; O2SAT 96
[2018-12-30 15:03] VITALS: PULSE 50
--- NOTE | 2018-12-30 17:01 | DS.PCM_ITS ---
Discharge Date and Diagnosis - Problem List Patient Problems: Active and Suspected Problems Altered mental status (Acute) Hepatic encephalopathy (Acute) Hyperthyroidism (Acute) Date of Admission: 12/25/18 Date of Discharge: 12/30/18 - Primary Discharge Diagnosis Active and Suspected Problems Altered mental status (Acute) 2/2 Hepatic encephalopathy (Acute) and Hyperthyroidism (Acute), and probable medication reaction to Azilect. Parkinsons disease with dementia Debility with fall Hyponatremia 2/2 dehydration, resolved Hx Liver Cirrhosis and associated thrombocytopenia Hypothyroidism - Secondary Discharge Diagnosis Chronic Problems Parkinson disease (Chronic) Hypothyroidism (Chronic) Dementia (Chronic) Cirrhosis (Chronic) Hospital Course and Treatment Imaging Results: IMAGING: CT/Brain/Head without Contrast IMPRESSION: Small vessel ischemia. CT/Abdomen/Pelvis W IV Cont ONLY IMPRESSION: Extensive ascites. Cirrhotic liver. Bilateral pleural effusions associated with dependent consolidation within the lower lobes. Atherosclerosis. CT/Chest WITH Contrast IMPRESSION: Bilateral pleural effusions associated with dependent consolidation within the lower lobes. Atherosclerosis. CT/Spine Cervical without Contras IMPRESSION: Multilevel degenerative changes, as described above. RAD/Shoulder min 2 Views IMPRESSION: Degenerative changes of the acromioclavicular joint. Echo: Interpretation Summary Left ventricular systolic function is hyperdynamic. The estimated ejection fraction is 75 %. Normal diastology for age. Mild aortic stenosis. Mild (1+) aortic valve insufficiency. Bubble contrast study negative for right to left interatrial shunt. No doppler evidence for ASD. Procedure Carotid Duplex 44903. Exam performed portable in patient room. Interpretation Summary Mild (<50%) stenosis right extracranial internal carotid. Mild (<50%) stenosis left extracranial internal carotid. Flow within the vertebral arteries is antegrade bilaterally. MRI/Brain without Contrast IMPRESSION: No acute intracranial abnormality. Mild chronic microvascular ischemic changes. Consults: Amaya - Neuro Operations: None Procedures: 2-D Echocardiogram Summary of Care Provided: Hospital Course: The patient is a 83 year old F with pmhx as above who presented to the ER with c/o confusion, fall, left facial droop, found by the nursing home assistant administrator on the floor. CT C spine showed degenerate changes, CT brain showed small vessel ischemia. UA negaitve. Xray shoulders negative. She was hyponatremic and had abnormal LFTs. Ammonia was elevated. She was placed on lactulose. Neuro was consulted and she went through a stroke workup including MRI brain, carotid ultrasound, and echo. These were unremarkable for acute stroke. She was felt to have metabolic encephalopathy. She was hydrated with IV fluids. ammonia responded well to lactulose. Azilect was recently started as outpatient, this was discontinued as it was felt likely to be contributing to her symptoms which had also included hallucinations. She remained intermittently lethargic with lucid periods in between. TSH was suppressed and T4 was elevated. Synthroid was temporarily held and later restarted at a lower dose. This will need checked again in about 2 weeks. She remained very debilitated. Patient was discharged to SNF in stable condition. She will need follow up with neuro in regards to Parkinsons medications, and follow up with her PCP in 2 weeks. This patient was seen by Phillip Disla PA-C under the supervision of Dr. Hobbs. [] Patient Problems: Active and Suspected Problems Altered mental status (Acute) Hepatic encephalopathy (Acute) Hyperthyroidism (Acute) - Physical Exam General: Alert, Cooperative, Confused, Lethargic, - - frail HEENT: Atraumatic, PERRLA, EOMI, Normocephalic Neck: Supple, No JVD, Negative Carotid Bruits Lungs: Clear to auscultation, Normal air movement Cardiovascular: Regular rate, Murmur - 3/6 systolic Abdomen: Bowel Sounds Present, Soft, Non Tender Extremities: No edema, Capillary Refill Less than 3 Seconds Skin: No rashes, No breakdown Musculoskeletal: No Tenderness to Palpation of Joints or Extremities Neurological: Cranial nerves II-XII grossly intact Psych/Mental Status: Normal Affect, Appropriate Vital Signs Temp Pulse Resp BP Pulse Ox 97.8 F 50 L 16 136/88 H 96 12/30/18 15:00 12/30/18 15:03 12/30/18 15:00 12/30/18 15:00 12/30/18 15:00 Oxygen Delivery Method Room Air Weight: 1408 lb 5.006 oz Body Mass Index (BMI) 25.6 Finger Stick Blood Glucose 99 Intake and Output for Last 24 Hours 12/28/18 12/29/18 12/30/18 23:59 23:59 23:59 Intake Total 479.1 / 839.1 1499 / 2909 2350 / 2350 Output Total 625 / 775 750 / 750 Balance -145.9 / 64.1 749 / 2159 2350 / 2350 Laboratory Tests Past 24 Hrs 12/30/18 07:04 WBC 5.6 RBC 3.35 L Hgb 11.2 L Hct 32.3 L MCV 96.4 MCH 33.4 H MCHC 34.7 RDW 13.7 RDW Differential 47.6 H Plt Count 93 L MPV 9.6 Discharge Diet: No Restrictions Discharge Activity: Return to Normal Activity Home Medications: Medications to take at Discharge Aspirin 81 mg PO DAILY 12/25/18 Carbidopa/Levodopa [Carbidopa-Levo 10-100 mg Odt] 1 each PO TID 12/25/18 Loratadine [Claritin] 10 mg PO DAILY 12/25/18 Omeprazole 20 mg PO DAILY 12/25/18 Acetaminophen [Tylenol] 1,000 mg PO Q8 tablet 12/29/18 Albuterol Aerosols [Ventolin Aerosols] 2.5 mg INHALATION Q2H PRN PRN vial.neb. 12/29/18 Furosemide [Lasix] 20 mg PO DAILY tablet 12/29/18 Lactulose [Chronulac] 20 gm PO TID udc 12/29/18 Lidocaine [Lidoderm Patch] 1 patch TOPICAL DAILY patch 12/29/18 Mag Hydrox/Al Hydrox/Simeth [Mylanta II] 30 ml PO Q6H PRN PRN udc 12/29/18 Levothyroxine [Synthroid] 100 mcg PO DAILY@0600 #0 tab 12/30/18 Primary Care Physician: Jaycob Ardon [Primary Care Provider] - Please follow up with your Primary Care Physician in: 2 weeks Please Follow Up With: Neurology When: 2 weeks Disposition: Shelter facility Minutes spent on discharge:: 35 Patient Condition:: Stable Medical Necessity - Tobacco Use Smoking Status: Never smoker Tobacco Use: Non-smoker Meaningful Use Info Meaningful Use Diagnoses (Choose all that apply): None applicable
== END 2018-12-30 17:55 | disposition skilled nursing facility (03) | DRG 442 ==
LOC: ED 15:33 → PCU 20:29
PROVIDERS: Hospitalist; Physician Assistant; Admitting Provider Internal Medicine; Emergency Provider Emergency Medicine; Family Provider Family Medicine; PCP Family Medicine; Visit Provider Internal Medicine
DX: K72.00 Acute and subacute hepatic failure without coma (principal); E87.1 Hypo-osmolality and hyponatremia; R44.3 Hallucinations, unspecified; R18.8 Other ascites; E86.0 Dehydration; F02.80 Dementia in other diseases classified elsewhere, unspecified severity, without behavioral disturbance, psychotic disturbance, mood disturbance, and anxiety; G20 Parkinson's disease; R53.81 Other malaise; E03.9 Hypothyroidism, unspecified; T42.8X5A Adverse effect of antiparkinsonism drugs and other central muscle-tone depressants, initial encounter; E05.80 Other thyrotoxicosis without thyrotoxic crisis or storm; T38.1X5A Adverse effect of thyroid hormones and substitutes, initial encounter; K74.60 Unspecified cirrhosis of liver; D69.59 Other secondary thrombocytopenia; Z91.81 History of falling; K21.9 Gastro-esophageal reflux disease without esophagitis; R29.810 Facial weakness
CPT/HCPCS: 36415; 70450; 70551; 71260; 72125; 73030; 74177; 80048; 80053; 80061; 81001; 82140; 82306; 82550; 82607; 82962; 83735; 84100; 84439; 84443; 84484; 85025; 85027; 85610; 92526; 92610; 93005; 93306; 93880; 97110; 97162; 97166; 97530; 97802; 99285; J7040; Q9957; Q9967; A4216; J1940; J7799

== ENCOUNTER 2018-12-30 18:12 | Inpatient (IN) | payer MEDICARE, SELFPAY ==
[2018-12-26 01:06] VITALS: BMI 25.6
[2018-12-30 18:22] VITALS: BP 150/57; PULSE 63; RESP 16; TEMP 36.7; O2SAT 98; BMI 24.7; BMI 25.6
--- NOTE | 2018-12-30 18:40 | NURSING ---
pt arrived via bed from PCU at 1805
--- NOTE | 2018-12-30 20:30 | RAD_ITS ---
STUDY: X-RAY CHEST REASON FOR EXAM: Female, 83 years old. Shortness of breath. TECHNIQUE: Single AP portable view of the chest. COMPARISON: CT of the chest, December 25, 2018. FINDINGS: The lungs appear well expanded. Chronic interstitial changes without new infiltrate or mass. There is small bilateral pleural effusions. Normal size heart. Normal mediastinum and vane. Normal visualized pulmonary arteries. There is atherosclerotic calcification of the aortic arch with tortuosity. No visualized osseous changes. There is no demonstrated abnormality of the visualized soft tissue structures of the upper abdomen. RAD/Chest PA and Lateral IMPRESSION: Small bilateral pleural effusions with chronic pulmonary changes. Electronically Signed: Tian Galvez DO at 21:54 EDT Tel [phone], Service support ,
--- NOTE | 2018-12-30 20:34 | NURSING ---
Addendum entered by Kyra Cha 12/30/18 23:38: Patient straight cathed at this time for 150 cc of cloudy yellow foul smelling urine. Urine sent down to Laboratory per order. Patient tolerated procedure well. Addendum entered by Kyra Cha 12/30/18 23:13: Dr. Bright aware of chest xray, kub, and lab results. No new orders given Original Note: In to room to assess patient. Patient very lethargic. Patient awakes to name and answer few questions. Patient alert to self only. Re-oriented to time and place. Patient awake for a short time then fell back asleep. Dr. Bright notified of this. New orders given.
--- NOTE | 2018-12-30 20:50 | RAD_ITS ---
STUDY: X-RAY - ABDOMEN/PELVIS REASON FOR EXAM: Female, 83 years old. Abdominal distention TECHNIQUE: Distention COMPARISON: None. FINDINGS: There is no bowel obstruction. There is air and stool to the level of the rectum. The visualized osseous structures are within normal limits. RAD/Abdomen Single View IMPRESSION: No bowel obstruction. Electronically Signed: Dimitri Ward, at 21:31 EDT Tel , Service support ,
--- NOTE | 2018-12-30 21:19 | HP.PCM_ITS ---
Problem List (1) Metabolic encephalopathy Status: Acute (2) Fall Status: Acute (3) Facial droop Status: Acute (4) GERD (gastroesophageal reflux disease) Status: Chronic (5) Parkinson disease Status: Chronic (6) Hypothyroidism Status: Chronic Qualifiers: (7) Dementia Status: Chronic Qualifiers: (8) Hepatic encephalopathy Status: Acute (9) Hyperthyroidism Status: Acute (10) Cirrhosis Status: Chronic History of Present Illness Date of Admission: 12/30/18 Chief Complaint: Here for rehabilitation, strengthening, prior to discharge home. The patient is a 83 year old Female with below past medical history presented to [facility] Emergency Department 12/25/2018 with confusion. 12/25/2018 CT brain showed small vessel ischemia. 12/25/2018 EKG normal sinus rhythm, normal EKG. 12/25/2018 CT abdomen/pelvis showed cirrhotic liver, bilateral pleural effusions with consolidation, atherosclerosis. 12/25/2018 CT chest showed bilateral pleural effusions with consolidation. 12/25/2018 CT cervical spine showed multilevel disc disease. 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 Confusion, fall, left facial droop. Right sided abdominal pain after fall. CBC okay, Sodium 132, BUN 29, Cr 1.29 Alk phos 146, AST 67, Troponin 0.029, CK 103. UA okay. 12/25/2018 Admit to Hospital. Evaluate for cause of confusion. 12/25/2018 Carotid doppler ultrasound showed bilateral mild internal carotid artery stenosis. 12/26/2018 Dr. Amaya thought confusion not neurologic. 12/26/2018 Echo showed left ventricular systolic function hyperdynamic. EF 75%. Mild Aortic Stenosis. Bubble study negative. 12/26/2018 MRI of brain negative. 12/27/2018 Stop Tramadol, Stop Melatonin. Hold Azilect. Hold Levothyroxine due to suppressed TSH. Lactulose started for high ammonia level. IV fluids given. Ammonia level improved with lactulose. Azilect discontinued. 12/30/2018 Admit to TCU with debility, here for rehabilitation, strengthening, prior to disposition determination. Consider Lewy Body Dementia, or Parkinson's dementia. Past Medical History Past Medical History (Chronic Problems): Chronic Problems Parkinson disease (Chronic) Hypothyroidism (Chronic) Dementia (Chronic) Cirrhosis (Chronic) GERD (gastroesophageal reflux disease) (Chronic) Allergies Sulfa (Sulfonamide Antibiotics) Allergy (Verified 12/25/18 14:39) Unknown Home Medications: Ambulatory Orders Medication Instructions Recorded Aspirin 81 mg PO DAILY 12/25/18 Carbidopa/Levodopa [Carbidopa-Levo 1 each PO TID 12/25/18 10-100 mg Odt] Loratadine [Claritin] 10 mg PO DAILY 12/25/18 Omeprazole 20 mg PO DAILY 12/25/18 Albuterol Aerosols [Ventolin 2.5 mg INHALATION Q2H PRN PRN 12/29/18 Aerosols] vial.neb. 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 Lives: Alone Smoking Status: Never smoker Tobacco Use: Non-smoker Alcohol: None Drugs: None - *Family History Maternal History Items: No pertinent history Paternal History Items: Cancer - melanoma Review of Systems Constitutional: Denies: Chills, Fever, Weight Change HEENT: Denies: Head Aches, Sinus Congestion, Sinus Drainage Cardiovascular: Denies: Chest Pain, Palpitations Respiratory: Denies: Cough, Shortness of breath at rest, Sputum production Gastrointestinal: Denies: Abdominal Pain, Nausea, Vomiting Genitourinary: Denies: Dysuria Musculoskeletal: Denies: Joint Pain, Joint Tenderness Skin: Denies: Rash, Wounds Neurological: Denies: Numbness, Tingling, Focal weakness Psychiatric: Denies: Anxiety, Depression, Homicidal Ideations, Suicidal Ideations Hematologic/ Lymphatic: Denies: Easy Bruising, Easy Bleeding VTE Information - Inpt Only VTE Present on Admission: No VTE Mechan Device Prophylaxis: Knee High ELISHA Hose VTE Pharm Prophylaxis ordered?: Yes Patient Problems: Active and Suspected Problems Metabolic encephalopathy (Acute) Fall (Acute) Facial droop (Acute) - Physical Exam General: Alert, Oriented x3, Cooperative HEENT: Atraumatic, PERRLA, EOMI, Normocephalic Neck: Supple, No JVD, Negative Carotid Bruits Lungs: Clear to auscultation, Normal air movement Cardiovascular: Regular rate, No murmurs Abdomen: Bowel Sounds Present, Soft, Non Tender Extremities: No edema, Capillary Refill Less than 3 Seconds Skin: No rashes, No breakdown Musculoskeletal: No Tenderness to Palpation of Joints or Extremities Neurological: Cranial nerves II-XII grossly intact Psych/Mental Status: Normal Affect, Appropriate Vital Signs Temp Pulse Resp BP Pulse Ox 98.0 F 63 16 150/57 H 98 12/30/18 18:22 12/30/18 18:22 12/30/18 18:22 12/30/18 18:22 12/30/18 18:22 Oxygen Delivery Method Room Air Weight: 69.4 kg Body Mass Index (BMI) 24.7 Finger Stick Blood Glucose 99 Laboratory Tests Past 24 Hrs 12/30/18 12/30/18 07:20 21:10 Sodium Pending Potassium Pending Chloride Pending Carbon Dioxide Pending Anion Gap Pending BUN Pending Creatinine Pending Est GFR (MDRD) Af Amer Pending Est GFR (MDRD) Non-Af Pending BUN/Creatinine Ratio Pending Glucose Pending Calcium Pending Total Bilirubin Pending AST Pending ALT Pending Alkaline Phosphatase Pending Ammonia Pending Total Protein Pending Albumin Pending Assessment/Plan All Active Problems Altered mental status (Acute) Hepatic encephalopathy (Acute) Hyperthyroidism (Acute) Metabolic encephalopathy (Acute) Fall (Acute) Facial droop (Acute) 83 year old female with below past medical history hospitalized for metabolic encephalopathy, stroke ruled out, complicated by liver cirrhosis with elevated ammonia, adverse medication reaction, admitted to TCU with debility, here for rehabilitation, strengthening, prior to disposition determination. * Debility - PT/OT. * Cognition - ST. * Pain - Tylenol 1000MG Q8H. * Bowel - already on Lactulose. * Pneumonia vaccination - Administer Prevnar 13 and/or Pneumovax 23 as necessary. * DVT prophylaxis - Lovenox 30MG SC daily. * Shortness of breath - Albuterol 2.5MG Q2H PRN. * CV prophylaxis - Aspirin 81MG daily. * Parkinson's Disease - Sinemet 10/100MG TIDAC. * Edema - Lasix 20MG daily. * Conjunctivitis - Gentamicin 1GTT OS Q4H x 10 days. * Hepatic encephalopathy - Lactulose 20GM TID. * Hypothyroidism - Levothyroxine 100MCG daily. * Neck pain - Lidoderm patch 1 patch TD daily. * Allergic rhinitis - Loratadine 10MG daily. * GERD - Pantoprazole 20MG daily, Mylanta II 30ML Q6H PRN. * Skin irritation - Calmoseptine BID. * End of Life - Resident told me she wants to , she is refusing therapy, food, medications. She agreed to DNRCC, will discuss with family, and recommend nursing facility with hospice.
[2018-12-30 21:23] LABS: ALB/GLOB Ratio 0.6 RATIO (0.9-2.4); AST(SGOT) 48 U/L (15-37); Alanine Aminotransfer ALT/SGPT 24 U/L (13-56); Albumin, Serum 2.2 g/dL (3.2-5.0); Alkaline Phosphatase 108 U/L (45-117); Anion Gap 8 (5-15); BUN 24 mg/dL (7-18); BUN/Creat Ratio 16.1 RATIO (10-20); Calcium,Total 8.4 mg/dL (8.5-10.1); Chloride 106 mmol/L (98-107); Creatinine, Serum 1.49 mg/dL (0.55-1.02); EST Glomerular Filtration Rate 36 mL/min (>60); Est Glom Filt Rate - Afr Amer 43 mL/min (>60); Estimated Creatinine Clearance 27.72 ml/min; Globulin 3.6 g/dL (2.2-4.2); Glucose 97 mg/dL (74-106); Potassium 3.6 mmol/L (3.5-5.1); Protein, Total 5.8 g/dL (6.4-8.2); Sodium Level 135 mmol/L (136-145)
[2018-12-30] MEDS: Lactulose 20 GM/30 ML UDC PO (22:28)
[2018-12-30] MEDS: Acetaminophen 500 MG Tablet 1000 MG PO (22:29)
[2018-12-30] MEDS: Gentamicin Sulfate 1 OPTH.BTL 1 DRP LEFT EYE (22:33)
[2018-12-30] MEDS: Menthol/Lanolin/Calamine/Znox 113 GM Tube 1 APPLIC TOPICAL (22:39)
[2018-12-31 00:18] LABS: Mucous, Urine 0 SEEN /hpf (<or=2+); Squamous Epithelial Cells - UA 0 SEEN /hpf (5-10)
[2018-12-31 00:22] LABS: Color, Urine Yellow (Yellow); Glucose, Dipstick Normal (Normal); Ketone-Dipstick Negative (Negative); Leukocyte Esterase-Dipstick 25 /ul (Negative); Nitrite-Dipstick Negative (Negative); Occult Blood-Urine 10 /ul (Negative); Protein-Dipstick Negative (Negative); Specific Gravity, Urine 1.015 (1.002-1.030); Urine Bilirubin Dipstick Negative (Negative); Urine Clarity Sl. Cloudy (Clear); Urine Urobilinogen Normal (Normal)
[2018-12-31 00:29] LABS: Bacteria 3+ /hpf (None Seen); Red Blood Cells-Urine 0-5 SEEN /hpf (0-5); White Blood Cells 0-5 SEEN /hpf (0-5)
[2018-12-31] MEDS: Levothyroxine 100 MCG Tablet PO (04:42)
[2018-12-31] MEDS: Carbidopa/Levodopa 10/100 Tablet PO ×3 (04:42→18:04)
[2018-12-31] MEDS: Loratadine 10 MG Tablet PO (04:42)
[2018-12-31] MEDS: Furosemide 20 MG Tablet PO (04:42)
[2018-12-31] MEDS: Acetaminophen 500 MG Tablet 1000 MG PO ×3 (04:42→22:09)
[2018-12-31] MEDS: Pantoprazole Sodium 20 MG Tablet PO (04:43)
[2018-12-31] MEDS: Lactulose 20 GM/30 ML UDC PO ×3 (04:47→22:09)
[2018-12-31] MEDS: Enoxaparin 30 MG/0.3 ML Syringe SC (04:47)
[2018-12-31] MEDS: Lidocaine 5% Patch 1 PATCH TOPICAL (04:47)
[2018-12-31] MEDS: Gentamicin Sulfate 1 OPTH.BTL 1 DRP LEFT EYE ×5 (04:51→22:10)
[2018-12-31] MEDS: Menthol/Lanolin/Calamine/Znox 113 GM Tube 1 APPLIC TOPICAL ×2 (04:52→22:09)
[2018-12-31 05:58] LABS: Absolute Lymphocyte Count 1.42 X10^3/ul (0.83-4.51); Absolute Neutrophil Count 2.8 X10^3/uL (2.0-7.7); Basophil# 0.03 X10^3/uL; Basophil% 0.6 % (0-1); Eosinophil# 0.17 X10^3/uL; Eosinophils% 3.6 % (0-5); Hematocrit 33.3 % (37-47); Hemoglobin 11.5 g/dl (12.0-15.0); Lymphocyte # 1.42 X10^3/ul (4.0); Lymphocyte % 29.8 % (19-41); Mean Corp Hgb Conc 34.5 g/gl (32-36); Mean Corpuscular Volume 95.7 fL (81-99); Mean Platelet Vol. 9.6 fl (6.2-12.0); Monocyte# 0.35 X10^3/uL; Monocyte% 7.4 % (0-10); Neutrophil # 2.78 X10^3/uL (2.7-7.7); Neutrophil % 58.4 % (47-70); Platelet Count 94 K/mm3 (150-450); RBC Distribution Width CV 13.2 % (11.6-14.6); RBC Distribution Width SD 43.7 fl (35.1-43.9); Red Blood Count 3.48 M/mm3 (4.2-5.4); White Blood Count 4.8 K/mm3 (4.4-11.0)
[2018-12-31 06:00] LABS: POSITIVE COUNT NO; POSITIVE DIFFERENTIAL NO; POSITIVE MORPHOLOGY NO
[2018-12-31 06:06] LABS: Anion Gap 9 (5-15); BUN 21 mg/dL (7-18); BUN/Creat Ratio 17.8 RATIO (10-20); Calcium,Total 8.7 mg/dL (8.5-10.1); Chloride 108 mmol/L (98-107); Creatinine, Serum 1.18 mg/dL (0.55-1.02); EST Glomerular Filtration Rate 47 mL/min (>60); Est Glom Filt Rate - Afr Amer 56 mL/min (>60); Glucose 76 mg/dL (74-106); Potassium 3.8 mmol/L (3.5-5.1); Sodium Level 139 mmol/L (136-145)
--- NOTE | 2018-12-31 08:00 | NURSING ---
Addendum entered by Pascale Whiting 12/31/18 08:09: Patient able to state that she is in the hospital and her name and date, also able to state that her daughter's name and that her daughter is her healthcare POA. Explained to patient what a DNR order means in clear, simple terms, patient states understanding and was able to sign DNR form. PETER Rae present during explanation and signing of paper. Original Note: Patient stating I want to . Refusing to take medications and eat. Called daughter Sofie SUSANElliot and discussed patient's wishes with her, daughter understands and would like to respect her mother's wishes. Will be in later this morning.
--- NOTE | 2018-12-31 11:50 | NURSING ---
Addendum entered by Pascale Whiting 12/31/18 11:52: Patient requesting to get up to chair, therapy in the evaluate, patient required x2 assistance to chair. Requesting to eat lunch. Daughter at bedside. Will continue to monitor. Original Note: Patient's POA and daughter, Sofie, in to see patient. Understands and is agreeable to DNRCC code status, signed form after questions answered. Is open to having patient transferred to a LTC facility for possible Hospice care. magazine worker updated.
[2018-12-31] MEDS: Tuberculin,Purif.prot.deriv. 50 TU/ML Vial 5 ML ID (14:03)
[2018-12-31 14:39] VITALS: BP 138/72; PULSE 80; RESP 18; TEMP 36.6
--- NOTE | 2018-12-31 16:35 | CASEMGMT ---
Social Work Spoke with patient with daughter present this morning about pt stating she wants to . Discussed at length with pt her wishes, the explanation behind her statement, her family members, and what is important to her. Pt kept wavering between wanting to get stronger so I don't have to keep living like this and wanting to because I can't live like this - I've led a good life, and I've been wanting this for over a month. Son arrived during conversation as well. Patient refusing to eat, drink, take medications at that time. Discussed hospice services, transferring to a SNF with hospice or home with hospice. Explained to pt her wishes will be upheld with whatever she decides. Allowed time for family to discuss choice with pt. Followed up with pt and daughter. Pt agreeable to having other family members come to visit and bring her dog, whom is most important to her. She agreed to participating in therapy with her dog - therapy agreeable. Pt began eating, drinking and taking medication. Followed up with pt as she had grandchildren and her dog visiting - pt's mood had greatly improved as she was smiling and laughing, and still willing to work with therapy. Received phone call from rep at [facility] that pt was previously receiving long term services. Updated rep on pt status and will notify [facility] with DC plans. Rep faxed pt plan of care/medications - provided to nurse. Will continue to follow for emotional support, discharge planning and possible Palliative Care/Hospice referral. ASYA Wilson
--- NOTE | 2019-01-01 03:07 | NURSING ---
pt frequently using call light requesting assistance. she's requesting the bedpan q30-45m. she's informing staff the she is cold. warm blankets & heating pad applied and room temp maxxed. warm beverage applied. pt's temp wnl. pt states she hurts all over and is restless; no prn pain medication is available on SEP since pt is on scheduled pain medication. pt has been repositioned multiple times. she immediately states she is more comfortable, but when staff leaves the room she calls and states she's uncomfortable. pt is calm and no distress is noted when staff is present in room.
[2019-01-01] MEDS: Gentamicin Sulfate 1 OPTH.BTL 1 DRP LEFT EYE ×6 (03:15→20:39)
[2019-01-01] MEDS: Menthol/Lanolin/Calamine/Znox 113 GM Tube 1 APPLIC TOPICAL ×2 (06:03→20:39)
[2019-01-01] MEDS: Pantoprazole Sodium 20 MG Tablet PO (06:04)
[2019-01-01] MEDS: Levothyroxine 100 MCG Tablet PO (06:04)
[2019-01-01] MEDS: Acetaminophen 500 MG Tablet 1000 MG PO ×2 (06:04→14:53)
[2019-01-01] MEDS: Lidocaine 5% Patch 1 PATCH TOPICAL (06:04)
[2019-01-01] MEDS: Loratadine 10 MG Tablet PO (06:04)
[2019-01-01] MEDS: Furosemide 20 MG Tablet PO (06:04)
[2019-01-01] MEDS: Enoxaparin 30 MG/0.3 ML Syringe SC (06:04)
[2019-01-01] MEDS: Carbidopa/Levodopa 10/100 Tablet PO ×3 (06:06→18:28)
[2019-01-01] MEDS: Aspirin 81 MG TAB.CHEW PO (08:40)
[2019-01-01] MEDS: Lactulose 20 GM/30 ML UDC PO (14:53)
[2019-01-01 15:03] VITALS: BP 109/57; PULSE 80; RESP 18; TEMP 36.7; O2SAT 98
--- NOTE | 2019-01-01 15:16 | PCM.PN.RX ---
<Jadon Lsat D - Last Filed: 01/01/19 15:16> Progress Note - Pharmacy Subjective: TCU Admission Objective: Allergies Sulfa (Sulfonamide Antibiotics) Allergy (Verified 12/25/18 14:39) Unknown Current Medications Generic Name Dose Route Start Last Admin Trade Name Freq PRN Reason Stop Dose Admin Acetaminophen 1,000 mg 12/30/18 22:00 01/01/19 14:53 Tylenol PO 1,000 mg Q8 JAMIN Administration Al Hydroxide/Mg Hydroxide 30 ml 12/30/18 18:36 Mylanta Ii PO Q6H PRN PRN Gastric Burning Albuterol Sulfate 2.5 mg 12/30/18 18:36 Ventolin Aerosols INHALATION Q2H PRN PRN SOB/Wheezing Aspirin 81 mg 12/31/18 08:00 01/01/19 08:40 Aspirin, Baby PO 81 mg DAILY@0800 JAMIN Administration Calamine/Phenol 1 applic 12/30/18 22:00 01/01/19 06:03 Calmoseptine Ointment TOPICAL 1 applicatio 0600,2200 JAMIN Administration Protocol Carbidopa/Levodopa 1 tablet 12/31/18 06:45 01/01/19 11:39 Sinemet PO 1 tablet TIDAC JAMIN Administration Enoxaparin Sodium 30 mg 12/31/18 06:00 01/01/19 06:04 Lovenox SC 30 mg DAILY@0600 JAMIN Administration Furosemide 20 mg 12/31/18 06:00 01/01/19 06:04 Lasix PO 20 mg DAILY JAMIN Administration Gentamicin Sulfate 1 drop 12/30/18 22:00 01/01/19 14:56 Garamycin Ophthalmic Drops LEFT EYE 01/09/19 22:01 1 drop Q4 JAMIN Administration Lactulose 20 gm 12/30/18 22:00 01/01/19 14:53 Chronulac, Cephulac PO 20 gm TID JAMIN Administration Levothyroxine Sodium 100 mcg 12/31/18 06:00 01/01/19 06:04 Synthroid PO 100 mcg DAILY@0600 JAMIN Administration Lidocaine 1 patch 12/31/18 06:00 01/01/19 06:04 Lidoderm Patch TOPICAL 1 patch DAILY JAMIN Administration Protocol Loratadine 10 mg 12/31/18 06:00 01/01/19 06:04 Claritin PO 10 mg DAILY JAMIN Administration Nutritional Formula (Lactose Free) 120 ml 12/31/18 12:00 01/01/19 11:39 Ensure Enlive PO 120 ml 4X/DAY JAMIN Administration Oxycodone HCl 5 mg 01/01/19 08:10 Oxyir PO Q4H PRN PRN SEVERE PAIN (6-10/10) Pantoprazole Sodium 20 mg 12/31/18 06:00 01/01/19 06:04 Protonix PO 20 mg DAILY JAMIN Administration Tramadol HCl 50 mg 01/01/19 08:09 Ultram PO Q6H PRN PRN MODERATE PAIN (4-5/10) Tuberculin PPD 5 tu 01/07/19 10:00 Tubersol, Aplisol, Ppd ID 01/07/19 10:01 X1 ONE Problem List Metabolic encephalopathy (Acute) Fall (Acute) Facial droop (Acute) GERD (gastroesophageal reflux disease) (Chronic) Vital Signs Temp Pulse Resp BP Pulse Ox 98.1 F 80 18 109/57 L 98 01/01/19 15:03 01/01/19 15:03 01/01/19 15:03 01/01/19 15:03 01/01/19 15:03 Oxygen Delivery Method Room Air Weight: 69.4 kg Body Mass Index (BMI) 24.7 Finger Stick Blood Glucose 99 Sodium 139 mmol/L (136-145) 12/31/18 05:05 Potassium 3.8 mmol/L (3.5-5.1) 12/31/18 05:05 Chloride 108 mmol/L (98-107) H 12/31/18 05:05 Carbon Dioxide 22.0 mmol/L (21.0-32.0) 12/31/18 05:05 9 (5-15) 12/31/18 05:05 BUN 21 mg/dL (7-18) H 12/31/18 05:05 1.18 mg/dL (0.55-1.02) H 12/31/18 05:05 Est GFR (MDRD) Af Amer 56 mL/min (>60) L 12/31/18 05:05 Est GFR (MDRD) Non-Af 47 mL/min (>60) L 12/31/18 05:05 17.8 RATIO (10-20) 12/31/18 05:05 Glucose 76 mg/dL (74-106) 12/31/18 05:05 Assessment/Plan: 1) Pain APAP, tramadol for moderate pain, oxycodone for severe pain, lidocaine patch. Continue to monitor prn medication use, daily pain scores. 2) Pulm Albuterol prn, loratadine. Continue to monitor allergy symptoms, for shortness of breath. 3) Hypothyroidism Levothyroxine. Continue to monitor s/s hyper/hypothyroidism. 4) Parkinson's Sinemet. Continue to monitor clinically. 5) Edema Furosemide. Continue to monitor BP/HR, renal function, electrolytes. 6) DVT PPx Enoxaparin. Continue to monitor for bleeding/clot. 7) GI Pantoprazole, Mylanta prn. Continue to monitor prn medication use, for GI distress. Psychotropic Medications: None Unnecessary Medications: None Bowel Regimen: 8) Lactulose. Continue to monitor for constipation/diarrhea. Date of Note:: 01/01/19 - Provider Comments Provider responsibility: Provider responsible to enter orders to implement recommendations <Jose Bright Chi - Last Filed: 01/01/19 17:31> Progress Note - Pharmacy Subjective: [] Objective: Allergies Sulfa (Sulfonamide Antibiotics) Allergy (Verified 12/25/18 14:39) Unknown Current Medications Generic Name Dose Route Start Last Admin Trade Name Freq PRN Reason Stop Dose Admin Acetaminophen 1,000 mg 12/30/18 22:00 01/01/19 14:53 Tylenol PO 1,000 mg Q8 JAMIN Administration Al Hydroxide/Mg Hydroxide 30 ml 12/30/18 18:36 Mylanta Ii PO Q6H PRN PRN Gastric Burning Albuterol Sulfate 2.5 mg 12/30/18 18:36 Ventolin Aerosols INHALATION Q2H PRN PRN SOB/Wheezing Aspirin 81 mg 12/31/18 08:00 01/01/19 08:40 Aspirin, Baby PO 81 mg DAILY@0800 [facility] Administration Calamine/Phenol 1 applic 12/30/18 22:00 01/01/19 06:03 Calmoseptine Ointment TOPICAL 1 applicatio 0600,2200 [facility] Administration Protocol Carbidopa/Levodopa 1 tablet 12/31/18 06:45 01/01/19 11:39 Sinemet PO 1 tablet TIDAC JAMIN Administration Cefuroxime Axetil 500 mg 01/02/19 06:00 Ceftin PO 01/08/19 06:01 Q12 [facility] Enoxaparin Sodium 30 mg 12/31/18 06:00 01/01/19 06:04 Lovenox SC 30 mg DAILY@0600 JAMIN Administration Furosemide 20 mg 12/31/18 06:00 01/01/19 06:04 Lasix PO 20 mg DAILY JAMIN Administration Gentamicin Sulfate 1 drop 12/30/18 22:00 01/01/19 14:56 Garamycin Ophthalmic Drops LEFT EYE 01/09/19 22:01 1 drop Q4 JAMIN Administration Lactulose 20 gm 12/30/18 22:00 01/01/19 14:53 Chronulac, Cephulac PO 20 gm TID [facility] Administration Levothyroxine Sodium 100 mcg 12/31/18 06:00 01/01/19 06:04 Synthroid PO 100 mcg DAILY@0600 [facility] Administration Lidocaine 1 patch 12/31/18 06:00 01/01/19 06:04 Lidoderm Patch TOPICAL 1 patch DAILY JAMIN Administration Protocol Loratadine 10 mg 12/31/18 06:00 01/01/19 06:04 Claritin PO 10 mg DAILY [facility] Administration Nutritional Formula (Lactose Free) 120 ml 12/31/18 12:00 01/01/19 11:39 Ensure Enlive PO 120 ml 4X/DAY [facility] Administration Oxycodone HCl 5 mg 01/01/19 08:10 Oxyir PO Q4H PRN PRN SEVERE PAIN (6-10/10) Pantoprazole Sodium 20 mg 12/31/18 06:00 01/01/19 06:04 Protonix PO 20 mg DAILY JAMIN Administration Tramadol HCl 50 mg 01/01/19 08:09 Ultram PO Q6H PRN PRN MODERATE PAIN (4-5/10) Tuberculin PPD 5 tu 01/07/19 10:00 Tubersol, Aplisol, Ppd ID 01/07/19 10:01 X1 ONE Problem List Metabolic encephalopathy (Acute) Fall (Acute) Facial droop (Acute) GERD (gastroesophageal reflux disease) (Chronic) Vital Signs Temp Pulse Resp BP Pulse Ox 98.1 F 68 16 109/57 L 93 01/01/19 15:03 01/01/19 15:21 01/01/19 15:21 01/01/19 15:03 01/01/19 15:21 Oxygen Delivery Method Room Air Weight: 69.4 kg Body Mass Index (BMI) 24.7 Finger Stick Blood Glucose 99 Sodium 139 mmol/L (136-145) 12/31/18 05:05 Potassium 3.8 mmol/L (3.5-5.1) 12/31/18 05:05 Chloride 108 mmol/L (98-107) H 12/31/18 05:05 Carbon Dioxide 22.0 mmol/L (21.0-32.0) 12/31/18 05:05 9 (5-15) 12/31/18 05:05 BUN 21 mg/dL (7-18) H 12/31/18 05:05 1.18 mg/dL (0.55-1.02) H 12/31/18 05:05 Est GFR (MDRD) Af Amer 56 mL/min (>60) L 12/31/18 05:05 Est GFR (MDRD) Non-Af 47 mL/min (>60) L 12/31/18 05:05 17.8 RATIO (10-20) 12/31/18 05:05 Glucose 76 mg/dL (74-106) 12/31/18 05:05 Assessment/Plan: Psychotropic Medications: Unnecessary Medications: Bowel Regimen: - Provider Comments Provider responsibility: Provider responsible to enter orders to implement recommendations Provider Comments to Recommendations by Pharmacy: Agree
[2019-01-01 15:21] VITALS: PULSE 68; RESP 16; O2SAT 93
--- NOTE | 2019-01-01 15:27 | CHAPLAIN ---
Type of Pastoral Visit _x__ Initial Visit ___ Follow-up Visit ___ On-call Visit ___ General Patient Visit ___ Spiritual Assessment ___ Family Conference ___ Bereavement ___ Rapid Response ___ Code Blue ___ Other (describe below) Pastoral Care Referral From _x__ Patient ___ Family ___ Nurse ___ Physician ___ Hydrotechnical Specialist ___ Resin Shaver ___ Other (describe below) Sacrament/Intervention _x__ Active listening ___ Anointing ___ Anabaptist ___ Bereavement ___ Communion ___ Gabriela exploration ___ _x__ Life review _x__ Prayer ___ Reconciliation ___ Sacrament of Sick _x__ Supportive presence ___ Wedding ___ Other (describe below) Pastoral Comments
--- NOTE | 2019-01-01 15:33 | NURSING ---
pt has been cooperative, no yelling out this shift but pt has been busy with therapy and social hour too. Does better out of room during day.
--- NOTE | 2019-01-01 17:47 | NURSING ---
dr lane reviewed urine culture results, new order for ceftin.
[2019-01-01] MEDS: CEFUROXIME AXETIL 250 MG TABLET 500 MG PO (18:49)
[2019-01-02] MEDS: Gentamicin Sulfate 1 OPTH.BTL 1 DRP LEFT EYE ×6 (02:08→19:40)
[2019-01-02] MEDS: Levothyroxine 100 MCG Tablet PO (04:55)
[2019-01-02] MEDS: Loratadine 10 MG Tablet PO (04:55)
[2019-01-02] MEDS: Furosemide 20 MG Tablet PO (04:55)
[2019-01-02] MEDS: Pantoprazole Sodium 20 MG Tablet PO (04:55)
[2019-01-02] MEDS: Carbidopa/Levodopa 10/100 Tablet PO ×3 (04:56→16:50)
[2019-01-02] MEDS: CEFUROXIME AXETIL 250 MG TABLET 500 MG PO ×2 (04:56→16:54)
[2019-01-02] MEDS: Menthol/Lanolin/Calamine/Znox 113 GM Tube 1 APPLIC TOPICAL ×2 (04:57→19:41)
[2019-01-02] MEDS: Enoxaparin 30 MG/0.3 ML Syringe SC (04:57)
[2019-01-02] MEDS: Lidocaine 5% Patch 1 PATCH TOPICAL (04:59)
[2019-01-02] MEDS: Aspirin 81 MG TAB.CHEW PO (09:05)
[2019-01-02 15:17] VITALS: BP 162/82; PULSE 77; RESP 17; TEMP 36.9; O2SAT 97
[2019-01-02] MEDS: Lactulose 20 GM/30 ML UDC PO (19:40)
[2019-01-02 20:00] VITALS: PULSE 80; RESP 18
[2019-01-02] MEDS: oxyCODONE 5 MG Tablet PO (20:04)
[2019-01-02 20:05] VITALS: PULSE 80; RESP 18
[2019-01-02] MEDS: Albuterol 2.5 MG/3 ML VIAL.NEB. INHALATION (20:07)
[2019-01-03] MEDS: Loratadine 10 MG Tablet PO (05:03)
[2019-01-03] MEDS: CEFUROXIME AXETIL 250 MG TABLET 500 MG PO ×2 (05:03→17:07)
[2019-01-03] MEDS: Carbidopa/Levodopa 10/100 Tablet PO ×3 (05:04→17:07)
[2019-01-03] MEDS: Furosemide 20 MG Tablet PO (05:04)
[2019-01-03] MEDS: Pantoprazole Sodium 20 MG Tablet PO (05:04)
[2019-01-03] MEDS: Levothyroxine 100 MCG Tablet PO (05:04)
[2019-01-03] MEDS: Enoxaparin 30 MG/0.3 ML Syringe SC (05:04)
[2019-01-03] MEDS: Gentamicin Sulfate 1 OPTH.BTL 1 DRP LEFT EYE ×5 (05:05→19:47)
[2019-01-03] MEDS: Menthol/Lanolin/Calamine/Znox 113 GM Tube 1 APPLIC TOPICAL ×2 (05:05→19:50)
[2019-01-03] MEDS: Lidocaine 5% Patch 1 PATCH TOPICAL (05:06)
[2019-01-03] MEDS: Lactulose 20 GM/30 ML UDC PO ×2 (05:06→10:56)
[2019-01-03] MEDS: Aspirin 81 MG TAB.CHEW PO (08:27)
[2019-01-03 15:29] VITALS: BP 117/59; PULSE 81; RESP 16; TEMP 36.4; O2SAT 97
[2019-01-03] MEDS: oxyCODONE 5 MG Tablet PO (19:45)
[2019-01-03] MEDS: NYSTATIN 500,000 UNIT/5 ML UDC 500000 UNIT PO (19:46)
[2019-01-04] MEDS: Gentamicin Sulfate 1 OPTH.BTL 1 DRP LEFT EYE ×6 (01:23→19:37)
[2019-01-04] MEDS: NYSTATIN 500,000 UNIT/5 ML UDC 500000 UNIT PO ×4 (04:59→19:37)
[2019-01-04] MEDS: Lactulose 20 GM/30 ML UDC PO ×2 (04:59→11:26)
[2019-01-04] MEDS: Enoxaparin 30 MG/0.3 ML Syringe SC (04:59)
[2019-01-04] MEDS: Pantoprazole Sodium 20 MG Tablet PO (04:59)
[2019-01-04] MEDS: Levothyroxine 100 MCG Tablet PO (04:59)
[2019-01-04] MEDS: CEFUROXIME AXETIL 250 MG TABLET 500 MG PO ×2 (04:59→18:00)
[2019-01-04] MEDS: Loratadine 10 MG Tablet PO (04:59)
[2019-01-04] MEDS: Furosemide 20 MG Tablet PO (04:59)
[2019-01-04] MEDS: Menthol/Lanolin/Calamine/Znox 113 GM Tube 1 APPLIC TOPICAL ×2 (05:08→19:39)
[2019-01-04] MEDS: Lidocaine 5% Patch 1 PATCH TOPICAL (05:08)
[2019-01-04] MEDS: Carbidopa/Levodopa 10/100 Tablet PO ×3 (05:58→17:59)
[2019-01-04] MEDS: Aspirin 81 MG TAB.CHEW PO (08:29)
[2019-01-04 15:27] VITALS: BP 125/70; PULSE 83; RESP 16; TEMP 37.4; O2SAT 99
[2019-01-05] MEDS: traMADol 50 MG Tablet PO (00:09)
[2019-01-05] MEDS: Gentamicin Sulfate 1 OPTH.BTL 1 DRP LEFT EYE ×6 (02:47→19:54)
[2019-01-05] MEDS: Enoxaparin 30 MG/0.3 ML Syringe SC (05:49)
[2019-01-05] MEDS: Lidocaine 5% Patch 1 PATCH TOPICAL (05:49)
[2019-01-05] MEDS: Lactulose 20 GM/30 ML UDC PO ×2 (05:50→14:11)
[2019-01-05] MEDS: Pantoprazole Sodium 20 MG Tablet PO (05:50)
[2019-01-05] MEDS: Levothyroxine 100 MCG Tablet PO (05:50)
[2019-01-05] MEDS: CEFUROXIME AXETIL 250 MG TABLET 500 MG PO (05:50)
[2019-01-05] MEDS: Loratadine 10 MG Tablet PO (05:50)
[2019-01-05] MEDS: Furosemide 20 MG Tablet PO (05:51)
[2019-01-05] MEDS: Menthol/Lanolin/Calamine/Znox 113 GM Tube 1 APPLIC TOPICAL ×2 (05:51→19:52)
[2019-01-05] MEDS: Aspirin 81 MG TAB.CHEW PO (05:52)
[2019-01-05] MEDS: NYSTATIN 500,000 UNIT/5 ML UDC 500000 UNIT PO ×4 (05:52→19:55)
[2019-01-05] MEDS: Carbidopa/Levodopa 10/100 Tablet PO ×3 (05:52→16:41)
--- NOTE | 2019-01-05 06:55 | NURSING ---
Finley removed Per Dr order. Pt tolerated well without any complaints. Pt noted to have 50 Ml of hematuria in finley bag. Armin GREEN aware.
--- NOTE | 2019-01-05 13:25 | NURSING ---
Addendum entered by America Cuba 01/05/19 13:26: pt resting in recliner chair, denies discomfort. No bladder distention noted. Original Note: pt voided in toilet, unable to measure d/t missing hat. When bladder scanning, scanner reports >999cc but pt has ascites. Will monitor.
[2019-01-05 15:14] VITALS: BP 109/51; PULSE 78; RESP 18; TEMP 36.8; O2SAT 96
[2019-01-05] MEDS: Sodium Chloride 0.65% 1 SPRAY SPRAY.BTL NASAL (15:46)
[2019-01-05] MEDS: CEFUROXIME AXETIL 500 MG TABLET PO (17:54)
[2019-01-05 22:00] VITALS: PULSE 82; RESP 18; O2SAT 95
[2019-01-06] MEDS: Gentamicin Sulfate 1 OPTH.BTL 1 DRP LEFT EYE ×6 (02:33→21:54)
[2019-01-06] MEDS: Menthol/Lanolin/Calamine/Znox 113 GM Tube 1 APPLIC TOPICAL ×2 (04:40→21:55)
[2019-01-06] MEDS: Loratadine 10 MG Tablet PO (04:41)
[2019-01-06] MEDS: Furosemide 20 MG Tablet PO (04:41)
[2019-01-06] MEDS: CEFUROXIME AXETIL 500 MG TABLET PO ×2 (04:42→17:32)
[2019-01-06] MEDS: Pantoprazole Sodium 20 MG Tablet PO (04:42)
[2019-01-06] MEDS: Levothyroxine 100 MCG Tablet PO (04:42)
[2019-01-06] MEDS: NYSTATIN 500,000 UNIT/5 ML UDC 500000 UNIT PO ×3 (04:42→16:53)
[2019-01-06] MEDS: Enoxaparin 30 MG/0.3 ML Syringe SC (04:43)
[2019-01-06] MEDS: Lidocaine 5% Patch 1 PATCH TOPICAL (04:43)
[2019-01-06] MEDS: Carbidopa/Levodopa 10/100 Tablet PO ×3 (04:43→16:53)
[2019-01-06] MEDS: Sodium Chloride 0.65% 1 SPRAY SPRAY.BTL NASAL (04:44)
[2019-01-06] MEDS: Lactulose 20 GM/30 ML UDC PO (04:47)
[2019-01-06 05:30] VITALS: PULSE 68; RESP 16; O2SAT 94
[2019-01-06] MEDS: Aspirin 81 MG TAB.CHEW PO (08:07)
[2019-01-06] MEDS: traMADol 50 MG Tablet PO (11:31)
--- NOTE | 2019-01-06 11:35 | NURSING ---
Addendum entered by America Elliot Bereket 01/06/19 11:46: Appt made for 01/07/19 w/dr hawkins @ [id number], daughter Adrianne notified and she is going to see if time can be changed to accomodate family's schedule. awaiting update Original Note: pt c/o lt eye hurting, some yellow drng removed from eyelid. noted small lump to LT upper eyelid. warm compress applied. Ultram given. pt resting in recliner chair. call light in reach. Dr Bright updated, new order to make appt with eye dr. pt verbalized understanding.
--- NOTE | 2019-01-06 12:53 | CASEMGMT ---
Insurance: Clinical updates sent to Annalisa at [facility]. auth # [id number]
--- NOTE | 2019-01-06 14:27 | NURSING ---
Pt refused scheduled 1400 Lactulose. America GREEN made aware.
[2019-01-06 16:00] VITALS: BP 114/68; PULSE 76; RESP 18; TEMP 36.5; O2SAT 94
--- NOTE | 2019-01-06 16:02 | CASEMGMT ---
Social Work Attempted to complete assessment with pt, but very drowsy and agreeable to SW contacting daughter, ESTRELLA Carrizales. Spoke with dtr at length about patient's previous abilities. Pt had begun to decline the past month or so, losing motivation, and requiring 24/7 care. Pt has 6 children - one son lives on the second floor of the home, but works 4 am to 7 pm most days and assists sometimes in the evenings with meals and medications. One son comes at 6 am to give pt A.M. meds - two daughters take turns coming at 7 am to assist with breakfast. Sometimes the pt would need fed d/t weakness. The daughters would assist with one shower per week as well. Pt received services through [facility] - nurse to assist with meds, aides to shower 2x/wk and provide care 11 am - 3 pm. When pt slept at the POA's house, she would be up about every 2 hours during the night. 2 daughters are actively working to get pt approved for Medicaid. Pt has been approved to attend [facility] 5 days/wk from 7 am - 4pm. Children had multiple discussions of moving pt to long-term care facility, as pt requested this the beginning of her decline about a month ago. She had not wanted to eat routinely and or get out of bed. Some children are hesitant about LTP and unrealistic, per POA. Offered emotional support and resources to dtr to assist with active discharge planning. Notified her insurance update was submitted on this date, and continued stay is not guaranteed. Will continue to follow - care plan meeting is scheduled for the following date to discuss progress and DC plans. ASYA Wilson
[2019-01-07] MEDS: Lactulose 20 GM/30 ML UDC PO ×2 (04:31→12:25)
[2019-01-07] MEDS: traMADol 50 MG Tablet PO (04:31)
[2019-01-07] MEDS: NYSTATIN 500,000 UNIT/5 ML UDC 500000 UNIT PO ×4 (04:32→20:32)
[2019-01-07] MEDS: Enoxaparin 30 MG/0.3 ML Syringe SC (04:32)
[2019-01-07] MEDS: Levothyroxine 100 MCG Tablet PO (04:32)
[2019-01-07] MEDS: Pantoprazole Sodium 20 MG Tablet PO (04:32)
[2019-01-07] MEDS: Loratadine 10 MG Tablet PO (04:32)
[2019-01-07] MEDS: CEFUROXIME AXETIL 500 MG TABLET PO ×2 (04:32→17:53)
[2019-01-07] MEDS: Carbidopa/Levodopa 10/100 Tablet PO ×3 (04:33→17:53)
[2019-01-07] MEDS: Furosemide 20 MG Tablet PO (04:33)
[2019-01-07] MEDS: Menthol/Lanolin/Calamine/Znox 113 GM Tube 1 APPLIC TOPICAL ×2 (04:37→20:40)
[2019-01-07] MEDS: Gentamicin Sulfate 1 OPTH.BTL 1 DRP LEFT EYE ×2 (04:40→08:25)
[2019-01-07 05:56] LABS: Absolute Lymphocyte Count 1.57 X10^3/ul (0.83-4.51); Basophil# 0.04 X10^3/uL; Basophil% 0.9 % (0-1); Eosinophil# 0.19 X10^3/uL; Eosinophils% 4.4 % (0-5); Hematocrit 32.5 % (37-47); Hemoglobin 11.3 g/dl (12.0-15.0); Lymphocyte # 1.57 X10^3/ul (4.0); Lymphocyte % 36.7 % (19-41); Mean Corp Hgb Conc 34.8 g/gl (32-36); Mean Corpuscular Hgb 34.2 pg (27.0-32.0); Mean Corpuscular Volume 98.5 fL (81-99); Mean Platelet Vol. 9.3 fl (6.2-12.0); Monocyte# 0.47 X10^3/uL; Neutrophil % 46.8 % (47-70); Platelet Count 107 K/mm3 (150-450); RBC Distribution Width SD 52.6 fl (35.1-43.9); White Blood Count 4.3 K/mm3 (4.4-11.0)
[2019-01-07 06:04] LABS: POSITIVE COUNT NO; POSITIVE DIFFERENTIAL NO; POSITIVE MORPHOLOGY NO
[2019-01-07 06:09] LABS: Anion Gap 8 (5-15); BUN 31 mg/dL (7-18); BUN/Creat Ratio 30.7 RATIO (10-20); Calcium,Total 8.7 mg/dL (8.5-10.1); Chloride 105 mmol/L (98-107); Creatinine, Serum 1.01 mg/dL (0.55-1.02); EST Glomerular Filtration Rate 56 mL/min (>60); Est Glom Filt Rate - Afr Amer 68 mL/min (>60); Glucose 89 mg/dL (74-106); Potassium 3.7 mmol/L (3.5-5.1); Sodium Level 136 mmol/L (136-145)
[2019-01-07] MEDS: Aspirin 81 MG TAB.CHEW PO (08:25)
[2019-01-07] MEDS: Lidocaine 5% Patch 1 PATCH TOPICAL (08:26)
--- NOTE | 2019-01-07 08:28 | CASEMGMT ---
Insurance: Continued stay approved. Next update due 01/12/19 with D/C plans in place. Auth #[id number]
[2019-01-07] MEDS: Tuberculin,Purif.prot.deriv. 50 TU/ML Vial 5 ML ID (12:25)
--- NOTE | 2019-01-07 12:35 | NURSING ---
Patient returned from appointment at [facility], new order to D/C gentamycin drops and start Maxitrol ointment BID to left eye.
[2019-01-07 15:55] VITALS: BP 122/76; PULSE 72; RESP 18; TEMP 36.8; O2SAT 97
--- NOTE | 2019-01-07 15:59 | CASEMGMT ---
Social Work IDT met with patient, two daughters Sofie and Adrianne and son John, for care plan meeting. Discussed progressing well with therapy from admission; however, still requiring min. assist with all ADLs, having poor PO intake, difficulty with self-feeding, and being very drowsy throughout the day. Discussed at length discharge plans and options as patient will need 04/02 care. Discussions between hiring private duty aides - but having county wide staffing shortage (per daughters), family helping at home, attending Adult Day Care 5 days a week or transferring to LTC facility pending Medicaid approval. Two daughters appear very involved in pts care and searching for available resources in the community. Informed them insurance approved patient until 01/12, but requesting finalized DC plan with that update and expect a LCD. Pt states she would like to be able to return home, but does not want to be a burden on her children and has considered LTP previously. Encouraged pt and children to continue to have conversations to uphold pts wishes and what is realistic care for the pt. After meeting concluded, provided children with list of LTC facilities, explained how to navigate Medicare.gov for longterm compare. The 3 children appeared to have a lot of frustration built up from possible caregiver burn out and other siblings not assisting with pts coordination of care. Provided emotional support at length until siblings concluded the conversation. Offered any assistance needed and continued support if needed. SW will continue to follow. Cielo Orta, ASYA DOUGLAS
[2019-01-07] MEDS: Neomycin/Polymyxin/Dexameth 5ML OPTH.BTL 1 DRP LEFT EYE (17:55)
[2019-01-07] MEDS: Neomycin/Polymyxin/Dexameth OINT 3.5GM OPTH.TUBE 1 APPLIC LEFT EYE (21:23)
[2019-01-08] MEDS: traMADol 50 MG Tablet PO (05:25)
[2019-01-08] MEDS: Lidocaine 5% Patch 1 PATCH TOPICAL (05:27)
[2019-01-08] MEDS: Levothyroxine 100 MCG Tablet PO (05:29)
[2019-01-08] MEDS: Enoxaparin 30 MG/0.3 ML Syringe SC (05:29)
[2019-01-08] MEDS: Pantoprazole Sodium 20 MG Tablet PO (05:29)
[2019-01-08] MEDS: Carbidopa/Levodopa 10/100 Tablet PO ×3 (05:29→17:18)
[2019-01-08] MEDS: Loratadine 10 MG Tablet PO (05:30)
[2019-01-08] MEDS: CEFUROXIME AXETIL 500 MG TABLET PO (05:30)
[2019-01-08] MEDS: Furosemide 20 MG Tablet PO (05:30)
[2019-01-08] MEDS: NYSTATIN 500,000 UNIT/5 ML UDC 500000 UNIT PO ×4 (05:30→20:50)
[2019-01-08] MEDS: Lactulose 20 GM/30 ML UDC PO ×3 (05:30→20:50)
[2019-01-08] MEDS: Neomycin/Polymyxin/Dexameth OINT 3.5GM OPTH.TUBE 1 APPLIC LEFT EYE ×2 (05:34→17:19)
[2019-01-08] MEDS: Menthol/Lanolin/Calamine/Znox 113 GM Tube 1 APPLIC TOPICAL ×2 (05:37→20:51)
[2019-01-08] MEDS: Aspirin 81 MG TAB.CHEW PO (07:51)
[2019-01-08 15:40] VITALS: PULSE 78; RESP 16; O2SAT 97
--- NOTE | 2019-01-08 15:53 | CASEMGMT ---
Social Work Spoke with two daughters to answer further questions on DC plans - appeal process, VA benefits, family tension. Pt would like to return home and daughters are struggling with upholding those wishes and understanding the reality of 04/02 care and the means available to provide that in the home. Daughters are waiting to hear back about Medicaid approval - they called the C.M. on this date to inquire. They would like to get that approved, referred to [employer] and have aides scheduled to assist prior to pt discharging. Reiterated the insurance approval and requests for NRD 01/12. Family would like pt to continue to receive this level of therapy to continue to improve. SW to continue to offer emotional support, mediation and facilitation of resources. Will continue to follow. ASYA WilsonW
[2019-01-08 16:00] VITALS: BP 132/72; PULSE 82; RESP 18; TEMP 36.8; O2SAT 97
[2019-01-09] MEDS: traMADol 50 MG Tablet PO (01:30)
[2019-01-09] MEDS: Acetaminophen 500 MG Tablet 1000 MG PO (02:43)
[2019-01-09] MEDS: NYSTATIN 500,000 UNIT/5 ML UDC 500000 UNIT PO ×4 (05:40→20:11)
[2019-01-09] MEDS: Neomycin/Polymyxin/Dexameth OINT 3.5GM OPTH.TUBE 1 APPLIC LEFT EYE ×2 (05:41→20:11)
[2019-01-09] MEDS: Lidocaine 5% Patch 1 PATCH TOPICAL (05:41)
[2019-01-09] MEDS: Levothyroxine 100 MCG Tablet PO (05:41)
[2019-01-09] MEDS: Pantoprazole Sodium 20 MG Tablet PO (05:41)
[2019-01-09] MEDS: Furosemide 20 MG Tablet PO (05:41)
[2019-01-09] MEDS: Enoxaparin 30 MG/0.3 ML Syringe SC (05:42)
[2019-01-09] MEDS: Menthol/Lanolin/Calamine/Znox 113 GM Tube 1 APPLIC TOPICAL ×2 (05:42→20:18)
[2019-01-09] MEDS: Lactulose 20 GM/30 ML UDC PO ×3 (05:42→20:11)
[2019-01-09] MEDS: Loratadine 10 MG Tablet PO (05:42)
[2019-01-09] MEDS: Carbidopa/Levodopa 10/100 Tablet PO ×3 (05:48→17:03)
[2019-01-09] MEDS: Aspirin 81 MG TAB.CHEW PO (08:13)
[2019-01-09 15:26] VITALS: BP 110/69; PULSE 76; RESP 20; TEMP 36.1; O2SAT 96
[2019-01-10] MEDS: Mag Hydrox/Al Hydrox/Simeth 30 ML UDC PO (02:07)
[2019-01-10] MEDS: traMADol 50 MG Tablet PO ×2 (02:07→22:14)
[2019-01-10] MEDS: Carbidopa/Levodopa 10/100 Tablet PO ×3 (05:04→17:29)
[2019-01-10] MEDS: Furosemide 40 MG Tablet PO (05:04)
[2019-01-10] MEDS: Pantoprazole Sodium 20 MG Tablet PO (05:04)
[2019-01-10] MEDS: Loratadine 10 MG Tablet PO (05:04)
[2019-01-10] MEDS: Levothyroxine 100 MCG Tablet PO (05:04)
[2019-01-10] MEDS: NYSTATIN 500,000 UNIT/5 ML UDC 500000 UNIT PO ×4 (05:04→20:44)
[2019-01-10] MEDS: Enoxaparin 30 MG/0.3 ML Syringe SC (05:04)
[2019-01-10] MEDS: Lactulose 20 GM/30 ML UDC PO ×2 (05:04→13:00)
[2019-01-10] MEDS: Lidocaine 5% Patch 1 PATCH TOPICAL (05:10)
[2019-01-10] MEDS: Menthol/Lanolin/Calamine/Znox 113 GM Tube 1 APPLIC TOPICAL ×2 (05:14→21:13)
[2019-01-10] MEDS: Neomycin/Polymyxin/Dexameth OINT 3.5GM OPTH.TUBE 1 APPLIC LEFT EYE ×2 (08:38→20:43)
[2019-01-10] MEDS: Aspirin 81 MG TAB.CHEW PO (08:38)
[2019-01-10 15:24] VITALS: BP 100/56; PULSE 76; RESP 16; TEMP 36.8; O2SAT 95
[2019-01-11] MEDS: oxyCODONE 5 MG Tablet PO (01:58)
[2019-01-11] MEDS: Lidocaine 5% Patch 1 PATCH TOPICAL (05:48)
[2019-01-11] MEDS: Menthol/Lanolin/Calamine/Znox 113 GM Tube 1 APPLIC TOPICAL ×2 (05:48→20:12)
[2019-01-11] MEDS: Loratadine 10 MG Tablet PO (05:49)
[2019-01-11] MEDS: Levothyroxine 100 MCG Tablet PO (05:49)
[2019-01-11] MEDS: Carbidopa/Levodopa 10/100 Tablet PO ×3 (05:49→17:11)
[2019-01-11] MEDS: Pantoprazole Sodium 20 MG Tablet PO (05:50)
[2019-01-11] MEDS: Lactulose 20 GM/30 ML UDC PO ×2 (05:51→13:00)
[2019-01-11] MEDS: Enoxaparin 30 MG/0.3 ML Syringe SC (05:51)
[2019-01-11] MEDS: NYSTATIN 500,000 UNIT/5 ML UDC 500000 UNIT PO ×4 (05:51→20:10)
[2019-01-11] MEDS: Furosemide 40 MG Tablet PO (05:51)
[2019-01-11] MEDS: Aspirin 81 MG TAB.CHEW PO (07:47)
[2019-01-11] MEDS: Neomycin/Polymyxin/Dexameth OINT 3.5GM OPTH.TUBE 1 APPLIC LEFT EYE ×2 (07:47→20:12)
[2019-01-11] MEDS: Mag Hydrox/Al Hydrox/Simeth 30 ML UDC PO (13:04)
[2019-01-11 13:11] VITALS: RESP 16
[2019-01-11 14:23] VITALS: BP 105/57; PULSE 75; RESP 16; TEMP 37.1; O2SAT 98
[2019-01-11] MEDS: Sodium Chloride 0.65% 1 SPRAY SPRAY.BTL NASAL (17:11)
[2019-01-12] MEDS: oxyCODONE 5 MG Tablet PO ×3 (00:18→19:49)
[2019-01-12] MEDS: traMADol 50 MG Tablet PO ×3 (01:33→17:58)
[2019-01-12] MEDS: Lactulose 20 GM/30 ML UDC PO ×3 (05:58→19:47)
[2019-01-12] MEDS: Levothyroxine 100 MCG Tablet PO (05:59)
[2019-01-12] MEDS: NYSTATIN 500,000 UNIT/5 ML UDC 500000 UNIT PO ×4 (05:59→19:51)
[2019-01-12] MEDS: Furosemide 40 MG Tablet PO (05:59)
[2019-01-12] MEDS: Enoxaparin 30 MG/0.3 ML Syringe SC (05:59)
[2019-01-12] MEDS: Carbidopa/Levodopa 10/100 Tablet PO ×3 (05:59→17:46)
[2019-01-12] MEDS: Pantoprazole Sodium 20 MG Tablet PO (05:59)
[2019-01-12] MEDS: Loratadine 10 MG Tablet PO (06:00)
[2019-01-12] MEDS: Menthol/Lanolin/Calamine/Znox 113 GM Tube 1 APPLIC TOPICAL ×2 (06:03→19:53)
[2019-01-12] MEDS: Lidocaine 5% Patch 1 PATCH TOPICAL (08:56)
[2019-01-12] MEDS: Aspirin 81 MG TAB.CHEW PO (08:57)
[2019-01-12] MEDS: Neomycin/Polymyxin/Dexameth OINT 3.5GM OPTH.TUBE 1 APPLIC LEFT EYE ×2 (09:01→19:51)
--- NOTE | 2019-01-12 11:31 | CASEMGMT ---
Insurance Continued stay review faxed. Will await determination. Auth# [id number] STELLA Pyel
--- NOTE | 2019-01-12 13:21 | NURSING ---
Patient ate 3 bites of cake that her daughter brought in for her.
--- NOTE | 2019-01-12 13:40 | MDS.RN ---
Information for the mds was obtained from review of the clinical record, interview of resident, staff, and direct observation of resident's care.
[2019-01-12 15:14] VITALS: BP 99/61; PULSE 74; RESP 16; TEMP 36.8; O2SAT 94
--- NOTE | 2019-01-12 15:35 | CASEMGMT ---
Social Work Spoke with dtrSofie, on this date. She states pt was approved for Medicaid, and requested a referral to [facility] for LTP. Made referral. Awaiting outcome and to hear back from insurance update. ASYA Wilson SHIPYARD PAINTER
[2019-01-12] MEDS: Mag Hydrox/Al Hydrox/Simeth 30 ML UDC PO (20:04)
[2019-01-12] MEDS: Acetaminophen 500 MG Tablet 1000 MG PO (21:18)
--- NOTE | 2019-01-12 21:52 | NURSING ---
Patient c/o pain. Patient very non specific where pain is. Patient complaining of general pain, then side pain, then back pain, then sharp abdomen pain. Patient given prn pain medications which have been ineffective. Dr. Bright notified, new orders give for KUB and straight truman for U/A.
--- NOTE | 2019-01-12 22:00 | RAD_ITS ---
STUDY: X-RAY - ABDOMEN/PELVIS REASON FOR EXAM: Female, 83 years old. Abdominal pain TECHNIQUE: Two AP supine views of the abdomen and pelvis. COMPARISON: Prior study of 12/30/2018 FINDINGS: Normal visualized lung bases. There is an unremarkable bowel gas pattern. There is no demonstrated free abdominal air. The visualized liver, spleen and kidneys are grossly normal in size and morphology. Normal soft tissue structures. There are degenerative changes of the right hip. RAD/Abdomen Single View IMPRESSION: There is no evidence of ileus or obstruction. There are degenerative changes of the right hip. Electronically Signed: Eb Castillo MD at 22:48 EDT , Service support ,
[2019-01-12] MEDS: MELATONIN 10 MG TABLET PO (22:08)
[2019-01-12 22:44] LABS: Bacteria 0 SEEN /hpf (None Seen); Mucous, Urine 0 SEEN /hpf (<or=2+); Red Blood Cells-Urine 0 SEEN /hpf (0-5)
[2019-01-12 22:48] LABS: Color, Urine Yellow (Yellow); Glucose, Dipstick Normal (Normal); Ketone-Dipstick Negative (Negative); Leukocyte Esterase-Dipstick 100 /ul (Negative); Nitrite-Dipstick Negative (Negative); Occult Blood-Urine Negative /ul (Negative); Protein-Dipstick 15 mg/dl (Negative); Specific Gravity, Urine 1.015 (1.002-1.030); Urine Bilirubin Dipstick Negative (Negative); Urine Clarity Sl. Cloudy (Clear); Urine Urobilinogen Normal (Normal)
[2019-01-12 22:59] LABS: Squamous Epithelial Cells - UA 0-5 SEEN /hpf (5-10); White Blood Cells 5-10 SEEN /hpf (0-5); Yeast-Urine RARE /hpf (None Seen)
[2019-01-13 05:51] VITALS: BP 115/68; PULSE 66
[2019-01-13] MEDS: Enoxaparin 30 MG/0.3 ML Syringe SC (05:53)
[2019-01-13] MEDS: Lidocaine 5% Patch 1 PATCH TOPICAL (05:53)
[2019-01-13] MEDS: Lactulose 20 GM/30 ML UDC PO ×3 (05:54→19:48)
[2019-01-13] MEDS: Carbidopa/Levodopa 10/100 Tablet PO ×3 (05:55→17:22)
[2019-01-13] MEDS: Levothyroxine 100 MCG Tablet PO (05:56)
[2019-01-13] MEDS: NYSTATIN 500,000 UNIT/5 ML UDC 500000 UNIT PO ×4 (05:56→19:49)
[2019-01-13] MEDS: Pantoprazole Sodium 20 MG Tablet PO (05:56)
[2019-01-13] MEDS: Furosemide 40 MG Tablet PO (05:56)
[2019-01-13] MEDS: Loratadine 10 MG Tablet PO (05:57)
[2019-01-13] MEDS: Menthol/Lanolin/Calamine/Znox 113 GM Tube 1 APPLIC TOPICAL ×2 (06:02→19:49)
[2019-01-13] MEDS: Neomycin/Polymyxin/Dexameth OINT 3.5GM OPTH.TUBE 1 APPLIC LEFT EYE ×2 (07:55→19:50)
[2019-01-13] MEDS: Aspirin 81 MG TAB.CHEW PO (07:55)
[2019-01-13 15:18] VITALS: BP 113/58; PULSE 69; RESP 18; TEMP 36.6; O2SAT 97
--- NOTE | 2019-01-13 15:54 | CASEMGMT ---
Social Work/Insurance Spoke with Cat at [facility] to provide verbal updates, per her request. [facility] requesting update 01/20 with DC plan with a DC date of 01/23. Spoke with dtr, Sofie, notified of the above. Will plan for home with help or [facility]. Updated Madison at [facility]. Will continue to follow. Cielo Orta, ASYA RADIO FREQUENCY ENGINEER
--- NOTE | 2019-01-13 16:09 | CHAPLAIN ---
patient is sleeping but awakens; pt requests a visit but at another time
[2019-01-13] MEDS: MELATONIN 10 MG TABLET PO (19:48)
--- NOTE | 2019-01-13 20:09 | PCM.TXEXTCAR ---
- Diet 01/07/19 16:26 Diet: Regular Diet Food consistency:: Mechanical Soft/Ground Is pt able to select menu?: No Diet Comments: supervision w/ total feed PRN; seated in chair, chin tuck w/straw. NO OJ - Routine Orders/Code Status Suppository Type: Dulcolax 10mg Suppository Frequency: Daily PRN Code Status: DNRCC - Wound(s) Bilateral legs Wound Type: Abrasion - Therapies Weight Bearing: Weight bearing as tolerated Extremity Affected:: Bilateral Lower Physical Therapy: Eval and Treat Occupational Therapy: Eval and Treat - Problem/Diagnosis (1) Metabolic encephalopathy Status: Acute Current Visit: Yes (2) Fall Status: Acute Current Visit: Yes (3) Facial droop Status: Acute Current Visit: Yes (4) GERD (gastroesophageal reflux disease) Status: Chronic Current Visit: Yes (5) Parkinson disease Status: Chronic Current Visit: No (6) Hypothyroidism Status: Chronic Current Visit: No (7) Dementia Status: Chronic Current Visit: No (8) Hepatic encephalopathy Status: Acute Current Visit: No (9) Hyperthyroidism Status: Acute Current Visit: No (10) Cirrhosis Status: Chronic Current Visit: No - Allergies/Procedures Done in Hospital Allergies/Adverse Reactions: Allergies Sulfa (Sulfonamide Antibiotics) Allergy (Verified 12/25/18 14:39) Unknown - Type of Care/Length of Stay Estimated LOS: More Than 30 Days Type of Care Needed: Intermediate Rehab Potential: Fair Prognosis: Poor - Additional Orders/Day of Discharge Day of Discharge: 01/23/19 - Dietary and Speech Recommendations Dietitian Recommendations/Changes: Rec liberalize diet to Regular - consistency per CHAIN HOOKER d/ dementia and poor po inatke. Will continue ONS medpass for increased nutrition if consumed - Follow Up Care Primary Care Physician: Jaycob Ardon [Primary Care Provider] - Please follow up with your Primary Care Physician in: 1 week. Please Follow Up With: Villa Amaya MD When: 2 weeks. Please Follow Up With: [facility] (Dr Richard) When: 2 weeks.
--- NOTE | 2019-01-13 20:11 | DS.PCM_ITS ---
Discharge Date and Diagnosis - Problem List Patient Problems: Active and Suspected Problems Metabolic encephalopathy (Acute) Fall (Acute) Facial droop (Acute) Date of Admission: 12/30/18 Date of Discharge: 01/23/19 - Primary Discharge Diagnosis Active and Suspected Problems Metabolic encephalopathy (Acute) Fall (Acute) Facial droop (Acute) - Secondary Discharge Diagnosis Chronic Problems Parkinson disease (Chronic) Hypothyroidism (Chronic) Dementia (Chronic) Cirrhosis (Chronic) GERD (gastroesophageal reflux disease) (Chronic) Hospital Course and Treatment Imaging Results: 01/07/19 16:26 Diet: Regular Diet Food consistency:: Mechanical Soft/Ground Is pt able to select menu?: No Diet Comments: supervision w/ total feed PRN; seated in chair, chin tuck w/straw. NO OJ Clinical Impression(s) from Imaging Studies Chest X-Ray 12/30/18 20:30 IMPRESSION: Small bilateral pleural effusions with chronic pulmonary changes. Electronically Signed: Tian Galvez DO at 21:54 EDT Tel [phone], Service support , KUB X-Ray 01/12/19 22:00 IMPRESSION: There is no evidence of ileus or obstruction. There are degenerative changes of the right hip. Electronically Signed: Eb Castillo MD at 22:48 EDT , Service support , Labs (Last 48 Hours) 01/12/19 22:35 Urine Color Yellow Urine Clarity Sl. Cloudy Urine pH 6.0 Ur Specific [place] 1.015 Urine Protein 15 H Urine Glucose (UA) Normal Urine Ketones Negative Urine Occult Blood Negative Urine Nitrite Negative Urine Bilirubin Negative Urine Urobilinogen Normal Ur Leukocyte Esterase 100 H Urine RBC 0 SEEN Urine WBC 5-10 SEEN Ur Squamous Epith Cells 0-5 SEEN Urine Bacteria 0 SEEN Urine Mucus 0 SEEN Urine Yeast RARE Operations: None Procedures: None Summary of Care Provided: The patient is a 83 year old Female with below past medical history hospitalized for metabolic encephalopathy, stroke ruled out, complicated by liver cirrhosis with elevated ammonia, adverse medication reaction, admitted to TCU with baldo lu, here for rehabilitation, strengthening, prior to disposition determination. Discharge to [facility], non-skilled PT/OT. Patient Problems: Active and Suspected Problems Metabolic encephalopathy (Acute) Fall (Acute) Facial droop (Acute) - Physical Exam Vital Signs Temp Pulse Resp BP Pulse Ox 97.8 F 69 18 113/58 L 97 01/13/19 15:18 01/13/19 15:18 01/13/19 15:18 01/13/19 15:18 01/13/19 15:18 Oxygen Flow Rate (L/min) 97 Oxygen Delivery Method Room Air Weight: 70.08 kg Body Mass Index (BMI) 24.7 Finger Stick Blood Glucose 99 Intake and Output for Last 24 Hours 01/11/19 01/12/19 01/13/19 23:59 23:59 23:59 Intake Total 360 / 360 240 / 240 600 / 600 Balance 360 / 360 240 / 240 600 / 600 Laboratory Tests Past 24 Hrs 01/12/19 22:35 Urine Color Yellow Urine Clarity Sl. Cloudy Urine pH 6.0 Ur Specific [place] 1.015 Urine Protein 15 H Urine Glucose (UA) Normal Urine Ketones Negative Urine Occult Blood Negative Urine Nitrite Negative Urine Bilirubin Negative Urine Urobilinogen Normal Ur Leukocyte Esterase 100 H Urine RBC 0 SEEN Urine WBC 5-10 SEEN Ur Squamous Epith Cells 0-5 SEEN Urine Bacteria 0 SEEN Urine Mucus 0 SEEN Urine Yeast RARE Discharge Diet: No Restrictions Discharge Activity: Return to Normal Activity, May Shower, Use Walker Weight Bearing Status: Weight bearing as tolerated Call your doctor if you observe: Fever of 101 or Higher, Inability to urinate, Inability to have a bowel movement, Shortness of breath, Chest pain, Uncontrolled pain Home Medications: Medications to take at Discharge Aspirin 81 mg PO DAILY 12/25/18 Carbidopa/Levodopa [Carbidopa-Levo 10-100 mg Odt] 1 each PO TID 12/25/18 Loratadine [Claritin] 10 mg PO DAILY 12/25/18 Omeprazole 20 mg PO DAILY 12/25/18 Mag Hydrox/Al Hydrox/Simeth [Mylanta II] 30 ml PO Q6H PRN PRN udc 12/29/18 Acetaminophen [Tylenol] 1,000 mg PO Q8 12/30/18 Furosemide [Lasix] 20 mg PO DAILY 12/30/18 Lactulose [Chronulac] 20 gm PO TID 12/30/18 Levothyroxine [Synthroid] 100 mcg PO DAILY@0600 12/30/18 Lidocaine [Lidoderm Patch] 1 patch TOPICAL DAILY 12/30/18 Ensure Enlive 120 ml PO 4X/DAY liquid 01/13/19 Melatonin 10 mg PO QHS tablet 01/13/19 Menthol/Lanolin/Calamine/Znox [Calmoseptine Ointment] 1 applic TOPICAL 0600,2200 tube 01/13/19 Oxycodone [Oxyir] 5 mg PO Q4H PRN PRN 7 Days #42 tab 01/13/19 Sodium Chloride 0.65% [[place] Nasal [place]] 1 spray NASAL BID PRN PRN spray.btl 01/13/19 traMADol [Ultram] 50 mg PO Q6H PRN PRN 7 Days #28 tab 01/13/19 Following Prescrptions Were Given to Patient: Oxycodone [Oxyir] 5 mg PO Q4H PRN PRN 7 Days #42 tab PRN Reason: Severe Pain (6-10/10) Prescription Printed traMADol [Ultram] 50 mg PO Q6H PRN PRN 7 Days #28 tab PRN Reason: Moderate Pain (4-5/10) Prescription Printed Primary Care Physician: Jaycob Ardon [Primary Care Provider] - Please follow up with your Primary Care Physician in: 1 week. Please Follow Up With: Villa Amaya MD When: 2 weeks. Please Follow Up With: [facility] (Dr Richard) When: 2 weeks. Disposition: Asstd Living/Non-Skill NH Minutes spent on discharge:: 30 Patient Condition:: Poor Medical Necessity - Tobacco Use Smoking Status: Never smoker Tobacco Use: Non-smoker Meaningful Use Info Meaningful Use Diagnoses (Choose all that apply): None applicable
[2019-01-13] MEDS: oxyCODONE 5 MG Tablet PO (21:09)
[2019-01-14 03:17] VITALS: BP 102/45; PULSE 75; O2SAT 94
[2019-01-14] MEDS: oxyCODONE 5 MG Tablet PO ×4 (03:38→21:04)
[2019-01-14] MEDS: Lidocaine 5% Patch 1 PATCH TOPICAL (04:49)
[2019-01-14] MEDS: Enoxaparin 30 MG/0.3 ML Syringe SC (04:54)
[2019-01-14] MEDS: Lactulose 20 GM/30 ML UDC PO ×3 (04:56→21:04)
[2019-01-14] MEDS: Loratadine 10 MG Tablet PO (04:57)
[2019-01-14] MEDS: Carbidopa/Levodopa 10/100 Tablet PO ×3 (04:57→16:25)
[2019-01-14] MEDS: Furosemide 40 MG Tablet PO (04:57)
[2019-01-14] MEDS: Pantoprazole Sodium 20 MG Tablet PO (04:57)
[2019-01-14] MEDS: Levothyroxine 100 MCG Tablet PO (04:57)
[2019-01-14] MEDS: Menthol/Lanolin/Calamine/Znox 113 GM Tube 1 APPLIC TOPICAL ×2 (04:59→21:05)
[2019-01-14 06:05] LABS: Absolute Lymphocyte Count 1.25 X10^3/ul (0.83-4.51); Absolute Neutrophil Count 3.8 X10^3/uL (2.0-7.7); Basophil# 0.04 X10^3/uL; Basophil% 0.7 % (0-1); Eosinophil# 0.18 X10^3/uL; Eosinophils% 3.1 % (0-5); Hematocrit 35.4 % (37-47); Hemoglobin 11.7 g/dl (12.0-15.0); Lymphocyte # 1.25 X10^3/ul (4.0); Lymphocyte % 21.7 % (19-41); Mean Corp Hgb Conc 33.1 g/gl (32-36); Mean Corpuscular Hgb 33.6 pg (27.0-32.0); Mean Corpuscular Volume 101.7 fL (81-99); Mean Platelet Vol. 9.7 fl (6.2-12.0); Monocyte# 0.49 X10^3/uL; Monocyte% 8.5 % (0-10); Neutrophil # 3.79 X10^3/uL (2.7-7.7); Neutrophil % 65.8 % (47-70); Platelet Count 104 K/mm3 (150-450); RBC Distribution Width CV 15.1 % (11.6-14.6); RBC Distribution Width SD 55.4 fl (35.1-43.9); Red Blood Count 3.48 M/mm3 (4.2-5.4); White Blood Count 5.8 K/mm3 (4.4-11.0)
[2019-01-14 06:08] LABS: POSITIVE COUNT NO; POSITIVE DIFFERENTIAL NO; POSITIVE MORPHOLOGY NO
[2019-01-14 06:28] LABS: Anion Gap 8 (5-15); BUN 35 mg/dL (7-18); BUN/Creat Ratio 26.3 RATIO (10-20); Calcium,Total 8.8 mg/dL (8.5-10.1); Chloride 104 mmol/L (98-107); Creatinine, Serum 1.33 mg/dL (0.55-1.02); EST Glomerular Filtration Rate 41 mL/min (>60); Est Glom Filt Rate - Afr Amer 49 mL/min (>60); Estimated Creatinine Clearance 31.06 ml/min; Glucose 90 mg/dL (74-106); Potassium 4.3 mmol/L (3.5-5.1); Sodium Level 137 mmol/L (136-145); T4 Free Direct 1.47 ng/dL (0.76-1.46)
--- NOTE | 2019-01-14 07:53 | NURSING ---
Addendum entered by Pascale Whiting 01/15/19 13:33: PAtient has c/o abd discomfort/pain and fullness that is worse at HS. Dr. Bright updated, new order for ultram 50mg PO qHS, oxyir 10mg PO qHS and ES tylenol 1000mg PO qHS. Original Note: Pt's abd noted to be larger is size and firm, will update Dr Bright.
[2019-01-14] MEDS: Neomycin/Polymyxin/Dexameth OINT 3.5GM OPTH.TUBE 1 APPLIC LEFT EYE ×2 (08:09→21:06)
[2019-01-14] MEDS: Aspirin 81 MG TAB.CHEW PO (08:09)
[2019-01-14] MEDS: Acetaminophen 500 MG Tablet 1000 MG PO (09:40)
--- NOTE | 2019-01-14 10:45 | RAD_ITS ---
STUDY: X-RAY - ABDOMEN/PELVIS REASON FOR EXAM: Female, 83 years old. Double distention hepatic encephalopathy. TECHNIQUE: KUB. COMPARISON: CT abdomen 12/25/2018. FINDINGS: There is a non-obstructive bowel gas pattern. Stool burden is low. There is no organomegaly. Multiple left upper quadrant calcifications consistent with previously noted splenic capsular calcification. Cholecystectomy clips in the right upper quadrant. Soft tissues and bony structures are unremarkable. RAD/Abdomen Single View IMPRESSION: No acute findings. Electronically Signed: Malina Wheeler MD at 20:41 EDT Tel , Service support ,
[2019-01-14] MEDS: traMADol 50 MG Tablet PO (12:25)
--- NOTE | 2019-01-14 13:10 | PCA ---
Patients daughter wanted us to try to force her to eat, but she refused. Said she wanted to sleep. I tried 2 times to get her to eat and she refused. Left her sandwich in the room (was a cold sandwich). Maybe she will get hungry before supper.
--- NOTE | 2019-01-14 13:34 | PCA ---
Patient refused 1st offer of lunch, family came and encouraged pt to order a new lunch choice i helped pt order her meal and sat with her during her meal and she ate 75% of it!
[2019-01-14 15:35] VITALS: BP 100/48; PULSE 79; RESP 18; TEMP 36.7; O2SAT 96
[2019-01-14] MEDS: MELATONIN 10 MG TABLET PO (21:04)
[2019-01-15] MEDS: oxyCODONE 5 MG Tablet PO (01:04)
[2019-01-15] MEDS: Enoxaparin 30 MG/0.3 ML Syringe SC (05:20)
[2019-01-15] MEDS: Furosemide 40 MG Tablet PO (05:20)
[2019-01-15] MEDS: Carbidopa/Levodopa 10/100 Tablet PO ×3 (05:20→17:11)
[2019-01-15] MEDS: Loratadine 10 MG Tablet PO (05:20)
[2019-01-15] MEDS: Lactulose 20 GM/30 ML UDC PO ×3 (05:20→21:22)
[2019-01-15] MEDS: Levothyroxine 100 MCG Tablet PO (05:20)
[2019-01-15] MEDS: Menthol/Lanolin/Calamine/Znox 113 GM Tube 1 APPLIC TOPICAL ×2 (05:23→21:29)
[2019-01-15] MEDS: Lidocaine 5% Patch 1 PATCH TOPICAL (05:23)
[2019-01-15] MEDS: Pantoprazole Sodium 20 MG Tablet PO (05:25)
--- NOTE | 2019-01-15 08:09 | PCA ---
Patients family brought her in some biscuits an gravy from out of hospital
[2019-01-15] MEDS: Neomycin/Polymyxin/Dexameth OINT 3.5GM OPTH.TUBE 1 APPLIC LEFT EYE ×2 (08:33→21:28)
[2019-01-15] MEDS: Aspirin 81 MG TAB.CHEW PO (08:33)
[2019-01-15 14:04] VITALS: BP 107/64; PULSE 74; RESP 18; TEMP 36.9; O2SAT 96
[2019-01-15] MEDS: traMADol 50 MG Tablet PO (21:22)
[2019-01-15] MEDS: MELATONIN 10 MG TABLET PO (21:22)
[2019-01-15] MEDS: Acetaminophen 500 MG Tablet 1000 MG PO (21:22)
[2019-01-16] MEDS: Lactulose 20 GM/30 ML UDC PO ×3 (05:03→21:40)
[2019-01-16] MEDS: Carbidopa/Levodopa 10/100 Tablet PO ×3 (05:03→16:10)
[2019-01-16] MEDS: Loratadine 10 MG Tablet PO (05:03)
[2019-01-16] MEDS: Pantoprazole Sodium 20 MG Tablet PO (05:03)
[2019-01-16] MEDS: Furosemide 40 MG Tablet PO (05:03)
[2019-01-16] MEDS: Enoxaparin 30 MG/0.3 ML Syringe SC (05:03)
[2019-01-16] MEDS: Lidocaine 5% Patch 1 PATCH TOPICAL (05:13)
[2019-01-16] MEDS: Menthol/Lanolin/Calamine/Znox 113 GM Tube 1 APPLIC TOPICAL ×2 (05:14→21:40)
[2019-01-16] MEDS: Levothyroxine 100 MCG Tablet PO (05:15)
[2019-01-16] MEDS: Aspirin 81 MG TAB.CHEW PO (08:18)
[2019-01-16] MEDS: Neomycin/Polymyxin/Dexameth OINT 3.5GM OPTH.TUBE 1 APPLIC LEFT EYE ×2 (08:19→21:43)
--- NOTE | 2019-01-16 15:40 | CHAPLAIN ---
Type of Pastoral Visit ___ Initial Visit _x__ Follow-up Visit ___ On-call Visit ___ General Patient Visit ___ Spiritual Assessment ___ Family Conference ___ Bereavement ___ Rapid Response ___ Code Blue ___ Other (describe below) Pastoral Care Referral From _x__ Patient ___ Family ___ Nurse ___ Physician ___ Granite Fabricator ___ Fruit Or Nut Farmworker ___ Other (describe below) Sacrament/Intervention _x__ Active listening ___ Anointing ___ Zoroastrianism ___ Bereavement ___ Communion ___ Gabriela exploration ___ ___ Life review _x__ Prayer ___ Reconciliation ___ Sacrament of Sick ___ Supportive presence ___ Wedding ___ Other (describe below) Pastoral Comments
[2019-01-16 15:48] VITALS: BP 95/52; PULSE 67; RESP 18; TEMP 36.8; O2SAT 94
[2019-01-16] MEDS: oxyCODONE 5 MG Tablet 10 MG PO (21:44)
[2019-01-16] MEDS: traMADol 50 MG Tablet PO (21:44)
[2019-01-16] MEDS: MELATONIN 10 MG TABLET PO (21:45)
[2019-01-16] MEDS: Acetaminophen 500 MG Tablet 1000 MG PO (21:46)
[2019-01-17] MEDS: oxyCODONE 5 MG Tablet 10 MG PO ×3 (02:27→21:24)
[2019-01-17] MEDS: Menthol/Lanolin/Calamine/Znox 113 GM Tube 1 APPLIC TOPICAL ×2 (04:53→19:38)
[2019-01-17] MEDS: Lactulose 20 GM/30 ML UDC PO ×3 (04:54→21:22)
[2019-01-17] MEDS: Loratadine 10 MG Tablet PO (04:55)
[2019-01-17] MEDS: Levothyroxine 100 MCG Tablet PO (04:56)
[2019-01-17] MEDS: Furosemide 40 MG Tablet PO (04:56)
[2019-01-17] MEDS: Pantoprazole Sodium 20 MG Tablet PO (04:56)
[2019-01-17] MEDS: Lidocaine 5% Patch 1 PATCH TOPICAL (05:00)
[2019-01-17] MEDS: Enoxaparin 30 MG/0.3 ML Syringe SC (05:03)
[2019-01-17] MEDS: Carbidopa/Levodopa 10/100 Tablet PO ×3 (07:08→17:10)
[2019-01-17] MEDS: Aspirin 81 MG TAB.CHEW PO (09:15)
[2019-01-17] MEDS: Neomycin/Polymyxin/Dexameth OINT 3.5GM OPTH.TUBE 1 APPLIC LEFT EYE ×2 (09:15→21:25)
[2019-01-17] MEDS: Mag Hydrox/Al Hydrox/Simeth 30 ML UDC PO (15:09)
[2019-01-17 16:00] VITALS: BP 110/68; PULSE 64; RESP 18; TEMP 36.8; O2SAT 94
[2019-01-17] MEDS: traMADol 50 MG Tablet PO (19:36)
[2019-01-17 19:39] VITALS: PULSE 74; O2SAT 94
[2019-01-17] MEDS: MELATONIN 10 MG TABLET PO (21:24)
[2019-01-17] MEDS: Acetaminophen 500 MG Tablet 1000 MG PO (21:24)
[2019-01-18] MEDS: Lidocaine 5% Patch 1 PATCH TOPICAL (04:06)
[2019-01-18] MEDS: Enoxaparin 30 MG/0.3 ML Syringe SC (04:06)
[2019-01-18] MEDS: Loratadine 10 MG Tablet PO (04:07)
[2019-01-18] MEDS: Lactulose 20 GM/30 ML UDC PO ×3 (04:07→20:46)
[2019-01-18] MEDS: Levothyroxine 100 MCG Tablet PO (04:07)
[2019-01-18] MEDS: Pantoprazole Sodium 20 MG Tablet PO (04:07)
[2019-01-18] MEDS: Furosemide 40 MG Tablet PO (04:07)
[2019-01-18] MEDS: Carbidopa/Levodopa 10/100 Tablet PO ×3 (04:07→15:30)
[2019-01-18] MEDS: Menthol/Lanolin/Calamine/Znox 113 GM Tube 1 APPLIC TOPICAL ×2 (04:14→20:48)
[2019-01-18] MEDS: Ondansetron ODT 4 MG Tablet PO (04:20)
[2019-01-18] MEDS: oxyCODONE 5 MG Tablet 10 MG PO ×3 (05:45→20:46)
[2019-01-18] MEDS: Neomycin/Polymyxin/Dexameth OINT 3.5GM OPTH.TUBE 1 APPLIC LEFT EYE ×2 (08:32→20:49)
[2019-01-18] MEDS: Aspirin 81 MG TAB.CHEW PO (08:32)
[2019-01-18] MEDS: Mag Hydrox/Al Hydrox/Simeth 30 ML UDC PO (09:46)
[2019-01-18] MEDS: Acetaminophen 500 MG Tablet 1000 MG PO ×2 (09:50→20:46)
--- NOTE | 2019-01-18 10:14 | NURSING ---
Dr. Bright notified of pt's poor appetite, instructed to monitor
[2019-01-18 16:00] VITALS: BP 108/58; PULSE 68; RESP 18; TEMP 36.6; O2SAT 94
[2019-01-18] MEDS: traMADol 50 MG Tablet PO ×2 (16:28→23:17)
[2019-01-18] MEDS: MELATONIN 10 MG TABLET PO (20:46)
[2019-01-19] MEDS: Pantoprazole Sodium 20 MG Tablet PO (05:51)
[2019-01-19] MEDS: Enoxaparin 30 MG/0.3 ML Syringe SC (05:51)
[2019-01-19] MEDS: oxyCODONE 5 MG Tablet 10 MG PO ×2 (05:51→21:10)
[2019-01-19] MEDS: Levothyroxine 100 MCG Tablet PO (05:51)
[2019-01-19] MEDS: Carbidopa/Levodopa 10/100 Tablet PO ×3 (05:51→16:01)
[2019-01-19] MEDS: Lactulose 20 GM/30 ML UDC PO ×3 (05:51→21:10)
[2019-01-19] MEDS: Furosemide 40 MG Tablet PO (05:51)
[2019-01-19] MEDS: Lidocaine 5% Patch 1 PATCH TOPICAL (05:52)
[2019-01-19] MEDS: Loratadine 10 MG Tablet PO (05:52)
[2019-01-19] MEDS: Menthol/Lanolin/Calamine/Znox 113 GM Tube 1 APPLIC TOPICAL ×2 (06:03→21:12)
[2019-01-19] MEDS: Neomycin/Polymyxin/Dexameth OINT 3.5GM OPTH.TUBE 1 APPLIC LEFT EYE ×2 (07:45→21:13)
[2019-01-19] MEDS: Aspirin 81 MG TAB.CHEW PO (07:45)
[2019-01-19] MEDS: Acetaminophen 500 MG Tablet 1000 MG PO (10:57)
--- NOTE | 2019-01-19 14:05 | NURSING ---
pt's family notified staff of request for information from pt's PCP, verified with PCP and information sent over at this time
[2019-01-19 15:45] VITALS: BP 92/54; PULSE 80; RESP 18; TEMP 36.9; O2SAT 95
[2019-01-19] MEDS: traMADol 50 MG Tablet PO (21:10)
[2019-01-19] MEDS: MELATONIN 10 MG TABLET PO (21:12)
[2019-01-20] MEDS: Acetaminophen 500 MG Tablet 1000 MG PO ×4 (00:09→22:26)
[2019-01-20] MEDS: oxyCODONE 5 MG Tablet 10 MG PO (01:25)
[2019-01-20] MEDS: Lidocaine 5% Patch 1 PATCH TOPICAL (04:03)
[2019-01-20] MEDS: Furosemide 40 MG Tablet PO (04:04)
[2019-01-20] MEDS: Lactulose 20 GM/30 ML UDC PO ×3 (04:04→21:29)
[2019-01-20] MEDS: Pantoprazole Sodium 20 MG Tablet PO (04:04)
[2019-01-20] MEDS: Levothyroxine 100 MCG Tablet PO (04:04)
[2019-01-20] MEDS: Loratadine 10 MG Tablet PO (04:05)
[2019-01-20] MEDS: Enoxaparin 30 MG/0.3 ML Syringe SC (04:05)
[2019-01-20] MEDS: Menthol/Lanolin/Calamine/Znox 113 GM Tube 1 APPLIC TOPICAL ×2 (04:07→21:30)
[2019-01-20] MEDS: Ondansetron ODT 4 MG Tablet PO (05:37)
[2019-01-20] MEDS: Carbidopa/Levodopa 10/100 Tablet PO ×3 (05:37→18:05)
--- NOTE | 2019-01-20 05:58 | NURSING ---
Patient awake all night long. Patient c/o generalized pain. Patient unable to specifically pin point pain. When patient was given HS medications patient had no complaints of pain. Patient was smiling and saying how good she felt. After oxyir and ultram were given at HS, patient all of the sudden crying out in pain. Patient given tylenol and more oxyir when due which was ineffective. This morning patient placed in recliner patient now complaining of abdominal pain with nausea. Patient zofran given. Dr Bright notified of this. New orders to make Tylenol scheduled and to d/c ultram and oxyir. Dr. Bright also notified of patient's daughters concerns over increased edema to abdomen and bilateral extremities. No new orders at this time.
[2019-01-20] MEDS: Aspirin 81 MG TAB.CHEW PO (08:12)
[2019-01-20] MEDS: Neomycin/Polymyxin/Dexameth OINT 3.5GM OPTH.TUBE 1 APPLIC LEFT EYE ×2 (08:13→21:29)
--- NOTE | 2019-01-20 08:42 | NURSING ---
New order for therapeutic US guided paracentesis r/t worsening ascites.
--- NOTE | 2019-01-20 09:06 | CASEMGMT ---
Social Work Patient discharging to [facility] for 01/23 pending insurance update on this date. Will complete PASRR and transfer LOC. Cielo Orta, OPERATIONS TECHNICIAN POLE FRAME CONSTRUCTION WORKER
[2019-01-20 12:12] LABS: International Normalized Ratio 1.4; Prothrombin Time (Protime)PT. 16.7 SECONDS (11.7-14.9)
[2019-01-20 16:00] VITALS: BP 97/52; PULSE 67; RESP 18; TEMP 36.7; O2SAT 93
[2019-01-20] MEDS: MELATONIN 10 MG TABLET PO (21:29)
[2019-01-20] MEDS: LORazepam 0.5 MG Tablet PO (22:26)
--- NOTE | 2019-01-21 02:18 | NURSING ---
pt continues to call out or moan all night. pt not sleeping. the earlier ativan order from dr lane did not really help her, she was quiet for about an hour, then started calling out again. pt now calling out c/o severe abd pain. tylenol was given earlier, with little results. no other pain meds available.
--- NOTE | 2019-01-21 02:39 | NURSING ---
pt asisted up to [facility], voided and had a bm. pt edematous +2 waist down to feet.
--- NOTE | 2019-01-21 03:18 | NURSING ---
call placed to dr lane pt still calling out and moaning after toileting and being repositioned. new orders for ativan and pain meds
[2019-01-21] MEDS: LORazepam 1 MG Tablet PO (03:41)
[2019-01-21] MEDS: oxyCODONE 5 MG Tablet 10 MG PO (03:41)
[2019-01-21] MEDS: Pantoprazole Sodium 20 MG Tablet PO (05:43)
[2019-01-21] MEDS: Furosemide 40 MG Tablet PO (05:43)
[2019-01-21] MEDS: Lactulose 20 GM/30 ML UDC PO (05:43)
[2019-01-21] MEDS: Carbidopa/Levodopa 10/100 Tablet PO ×2 (05:43→12:33)
[2019-01-21] MEDS: Acetaminophen 500 MG Tablet 1000 MG PO (05:43)
[2019-01-21] MEDS: Loratadine 10 MG Tablet PO (05:43)
[2019-01-21] MEDS: Levothyroxine 100 MCG Tablet PO (05:43)
[2019-01-21] MEDS: Lidocaine 5% Patch 1 PATCH TOPICAL (05:45)
[2019-01-21 05:54] LABS: International Normalized Ratio 1.3; Prothrombin Time (Protime)PT. 15.5 SECONDS (11.7-14.9)
[2019-01-21] MEDS: Menthol/Lanolin/Calamine/Znox 113 GM Tube 1 APPLIC TOPICAL ×2 (05:54→22:34)
[2019-01-21 08:37] LABS: Absolute Lymphocyte Count 1.53 X10^3/ul (0.83-4.51); Absolute Neutrophil Count 9.2 X10^3/uL (2.0-7.7); Basophil# 0.04 X10^3/uL; Basophil% 0.3 % (0-1); Eosinophil# 0.13 X10^3/uL; Eosinophils% 1.1 % (0-5); Hematocrit 37.8 % (37-47); Hemoglobin 12.3 g/dl (12.0-15.0); Lymphocyte # 1.53 X10^3/ul (4.0); Lymphocyte % 12.6 % (19-41); Mean Corp Hgb Conc 32.5 g/gl (32-36); Mean Corpuscular Hgb 33.6 pg (27.0-32.0); Mean Corpuscular Volume 103.3 fL (81-99); Mean Platelet Vol. 11.7 fl (6.2-12.0); Monocyte# 1.17 X10^3/uL; Monocyte% 9.6 % (0-10); Neutrophil # 9.22 X10^3/uL (2.7-7.7); Neutrophil % 75.9 % (47-70); Platelet Count 34 K/mm3 (150-450); RBC Distribution Width CV 15.6 % (11.6-14.6); RBC Distribution Width SD 57.9 fl (35.1-43.9); Red Blood Count 3.66 M/mm3 (4.2-5.4); White Blood Count 12.2 K/mm3 (4.4-11.0)
[2019-01-21 08:42] LABS: POSITIVE COUNT YES; POSITIVE DIFFERENTIAL NO; POSITIVE MORPHOLOGY YES
[2019-01-21 08:43] LABS: Differential Indicated SCAN CRITERIA MET
--- NOTE | 2019-01-21 09:00 | US_ITS ---
PROCEDURE: Ultrasound guided paracentesis. DATE OF EXAMINATION: January 21, 2019.. INDICATION: Female, 83 years old. Ascites. PHYSICIAN: Rishabh Richardson M.D. TECHNIQUE: The risks, benefits, and alternatives to the procedure were explained to the patient. The specific risks of bleeding, infection, and damage to bowel were detailed and accepted. Witnessed informed consent was obtained. The abdomen was ultrasonographically surveyed. An appropriate pocket of fluid was identified at the right lower quadrant. The skin were cleaned and prepped in the usual sterile fashion. Using ultrasound guidance, the peritoneal cavity was accessed with a 5-Sinhala paracentesis needle/catheter system. The trocar was removed. A total of 1550 ml of veronika-colored fluid were removed from the peritoneal cavity. The catheter was removed and a sterile dressing was applied. The procedure was well tolerated. US/Paracentesis with US IMPRESSION: Ultrasound guided paracentesis. Electronically Signed: Rishabh Richardson, at 13:27 EDT , Service support ,
[2019-01-21 09:04] LABS: Anion Gap 8 (5-15); BUN 45 mg/dL (7-18); BUN/Creat Ratio 21.6 RATIO (10-20); Calcium,Total 9.4 mg/dL (8.5-10.1); Chloride 102 mmol/L (98-107); Creatinine, Serum 2.08 mg/dL (0.55-1.02); EST Glomerular Filtration Rate 24 mL/min (>60); Est Glom Filt Rate - Afr Amer 29 mL/min (>60); Estimated Creatinine Clearance 19.86 ml/min; Glucose 84 mg/dL (74-106); Sodium Level 135 mmol/L (136-145)
[2019-01-21 09:07] LABS: Anisocytosis 1+; Basophilic Stippling RARE; Ovalocyte 1+; Platelet Estimate MKD DEC (ADEQ)
[2019-01-21] MEDS: Neomycin/Polymyxin/Dexameth OINT 3.5GM OPTH.TUBE 1 APPLIC LEFT EYE ×2 (09:16→22:34)
--- NOTE | 2019-01-21 09:20 | NURSING ---
Addendum entered by America [place] 01/21/19 09:21: lovenox. pt lethargic after receiving Ativan d/t restlessness and abdominal/back discomfort last night per report. awakens to verbal and tactile stimuli. sat 97% on RA AP HR 72. Original Note: pt to have paracentesis down at 1030 this AM, aspirin held along with
[2019-01-21 10:00] VITALS: BP 101/60; PULSE 79; RESP 16; O2SAT 98
--- NOTE | 2019-01-21 10:26 | NURSING ---
Pt off unit to radiology for paracentesis, family at side.
--- NOTE | 2019-01-21 10:30 | NURSING ---
pt off unit via bed to radiology, family at bedside.
--- NOTE | 2019-01-21 10:53 | NURSING ---
Dr Bright updated on labs, no new orders at this time. Dr Bright may discuss hospice at home or at [facility] with family, waiting to see if the paracentesis helps pt.
[2019-01-21 10:56] VITALS: BP 117/57; BP 121/58; PULSE 70; PULSE 73; RESP 18; O2SAT 95; O2SAT 98
--- NOTE | 2019-01-21 11:30 | NURSING ---
Pt returned from radiology with reporting of 1550cc clear fluid removed at 1115
--- NOTE | 2019-01-21 12:17 | NURSING ---
Holding sinemet for now d/t pt to lethargic to swallow medication, SENIOR QUANTITY SURVEYOR's holding lunch tray until pt more alert to eat.
--- NOTE | 2019-01-21 12:27 | PCA ---
Patient was to lethargic to consume food/drink at this time, pt refused to respond to ques of opening eyes from staff. speech therapy-Pema recommended when pt is lethargic for pts safety we do not attempt to feed pt due to pocketing of breakfast
--- NOTE | 2019-01-21 13:26 | CASEMGMT ---
Addendum entered by Cielo Orta 01/21/19 15:17: Spoke dtr - electing hospice. Notified dtr of insurance LCD 01/23 - discharge 01/24. Dtr electing 01/23 discharge as previously planned, and now for pt to admit to hospice once at [facility] 01/23. Referral made to [facility]. Notified Madison at [facility] of change in condition - refaxed clinicals, per her request. Transportation scheduled with [facility] by cot at 11:30 am. Plan: DC 01/23 to [facility] with [facility] by cot at 11:30 am. Original Note: Social Work Pt continuing to not be as alert and overall declining. Spoke with family about hospice. Dtr aware of decline and has been discussing that option with family already. Dtr in agreement, but will finalize decision once all of the children have agreed. Will continue to follow. Cielo Orta, OIL WELL DRILLER LICENSED PROSTHETIST/ORTHOTIST
[2019-01-21 16:00] VITALS: BP 118/80; PULSE 79; RESP 18; TEMP 36.6; O2SAT 91
[2019-01-21 22:38] VITALS: PULSE 72; O2SAT 98
[2019-01-22] MEDS: Lidocaine 5% Patch 1 PATCH TOPICAL (05:12)
[2019-01-22] MEDS: Menthol/Lanolin/Calamine/Znox 113 GM Tube 1 APPLIC TOPICAL (05:15)
[2019-01-22 05:27] VITALS: BP 115/63; PULSE 94; RESP 20; TEMP 37.3; O2SAT 95
--- NOTE | 2019-01-22 06:46 | NURSING ---
Pt lethargic this AM. Unable to follow simple commands or state her name.
--- NOTE | 2019-01-22 08:20 | NURSING ---
Addendum entered by Pascale Whiting 01/22/19 08:34: Corinna, Hospice nurse notified of patient decline. Hospice will contact daughters and set up meeting time. Original Note: Patient lethargic, opens eyes when name said loudly but unable to answer any questions. HR irregular, abdomen distended, 3+ pitting edema to BLLE and 2+ to BL thighs/hips. Vitals 76/54, 85, 91% on RA, 20, 100.2. Dr. Bright updated, new order to consult Hospice and Tylenol 650mg rectal suppositories.
--- NOTE | 2019-01-22 08:52 | CASEMGMT ---
Social Work Patient declined overnight - nursing notified [facility]. [facility] contacted this SW and will be meeting with family at 9:30 am to admit patient. Will transfer to inpatient hospice today. Notified Madison at [facility]. Cancelled transport to [facility]. ASYA WilsonW
[2019-01-22] MEDS: Acetaminophen 650 MG Suppository RECTAL (09:22)
--- NOTE | 2019-01-22 09:30 | NURSING ---
Addendum entered by Pascale Whiting 01/22/19 10:58: Patient to be discharged to the inpatient Hospice unit today at 1130. Family at bedside and aware. Dr. Bright updated. Original Note: Patient given PRN tylenol suppository d/t fever. Repositioned in bed to left side. Daughter's here meeting with Hospice nurse.
[2019-01-22 11:50] LABS: Pathologist Review Reviewed
--- NOTE | 2019-01-22 11:57 | NURSING ---
Report called to PETER Hays at Hospice. Patient left with squad at 1145.
--- NOTE | 2019-01-22 21:05 | DCINST_ITS ---
You will use the following diet at home:: No restrictions, Regular Your food should be the consistency of: Regular Your liquids should be the consistency of: Regular/Thin Discharge Activity: Return to Normal Activity, May Shower, Use Walker Weight Bearing Status: Weight bearing as tolerated Call your doctor if you observe: Fever of 101 or Higher, Inability to urinate, Inability to have a bowel movement, Shortness of breath, Chest pain, Uncontrolled pain Allergies/Adverse Reactions: Allergies Sulfa (Sulfonamide Antibiotics) Allergy (Verified 12/25/18 14:39) Unknown Medications to take at Discharge Aspirin 81 mg PO DAILY 12/25/18 Carbidopa/Levodopa [Carbidopa-Levo 10-100 mg Odt] 1 each PO TID 12/25/18 Loratadine [Claritin] 10 mg PO DAILY 12/25/18 Omeprazole 20 mg PO DAILY 12/25/18 Mag Hydrox/Al Hydrox/Simeth [Mylanta II] 30 ml PO Q6H PRN PRN udc 12/29/18 Acetaminophen [Tylenol] 1,000 mg PO Q8 12/30/18 Furosemide [Lasix] 20 mg PO DAILY 12/30/18 Lactulose [Chronulac] 20 gm PO TID 12/30/18 Levothyroxine [Synthroid] 100 mcg PO DAILY@0600 12/30/18 Lidocaine [Lidoderm Patch] 1 patch TOPICAL DAILY 12/30/18 Ensure Enlive 120 ml PO 4X/DAY liquid 01/13/19 Melatonin 10 mg PO QHS tab 01/13/19 Menthol/Lanolin/Calamine/Znox [Calmoseptine Ointment] 1 applic TOPICAL 0600,2200 tube 01/13/19 Oxycodone [Oxyir] 5 mg PO Q4H PRN PRN 7 Days #42 tab 01/13/19 Sodium Chloride 0.65% [[place] Nasal [place]] 1 spray NASAL BID PRN PRN spray.btl 01/13/19 traMADol [Ultram] 50 mg PO Q6H PRN PRN 7 Days #28 tab 01/13/19 The following prescriptions were given: Oxycodone [Oxyir] 5 mg PO Q4H PRN PRN 7 Days #42 tab PRN Reason: Severe Pain (6-04/23) Prescription Printed traMADol [Ultram] 50 mg PO Q6H PRN PRN 7 Days #28 tab PRN Reason: Moderate Pain (4-5/10) Prescription Printed Primary Care Physician: Jaycob Ardon [Primary Care Provider] - Please follow up with your Primary Care Physician in: As needed. Test Results: Test results from this visit will be discussed in further detail at your follow- up appointment, if applicable. Please Follow Up With: Dr Ardon When: As needed. Please Follow Up With: Dr Amaya When: Cancel. Please Follow Up With: Dr Richard When: Cancel. Proposed Discharge Date: 01/22/19
--- NOTE | 2019-01-27 07:20 | MDS.RN ---
Information for the mds was obtained from review of the clinical record, interview of resident, staff, and direct observation of resident's care.
== END 2019-01-22 11:45 | disposition hospice, inpatient (51) | DRG 948 ==
PROVIDERS: Admitting Provider Family Medicine Geriatric Medicine; Family Provider Family Medicine; PCP Family Medicine; Referring Provider Family Medicine Geriatric Medicine; Visit Provider Family Medicine Geriatric Medicine
DX: R53.81 Other malaise (principal); H10.9 Unspecified conjunctivitis; G20 Parkinson's disease; F02.80 Dementia in other diseases classified elsewhere, unspecified severity, without behavioral disturbance, psychotic disturbance, mood disturbance, and anxiety; E03.9 Hypothyroidism, unspecified; K21.9 Gastro-esophageal reflux disease without esophagitis; J30.9 Allergic rhinitis, unspecified; K72.90 Hepatic failure, unspecified without coma; K74.60 Unspecified cirrhosis of liver; R29.810 Facial weakness
CPT/HCPCS: 36415; 49083; 71046; 74018; 80048; 80053; 81001; 82140; 84439; 84443; 85025; 85610; 87077; 87086; 87088; 87186; 92507; 92523; 92526; 92610; 94640; 97110; 97116; 97162; 97165; 97530; 97535; 97802; 99406